=== PATIENT | female | born 1960 | race Caucasian/White ===

== ENCOUNTER → 2018-03-25 | Day surgery (SDC) | payer OTHER ==
[2018-03-02 16:01] VITALS: BMI 71.0
[2018-03-11 14:02] VITALS: BMI 72.0
--- NOTE | 2018-03-11 14:33 | PAT Medication Instructions ---
Service Date Mar 11, 2018. Current Home Medication List Albuterol (Ventolin), 2 PUFFS INH Q4H PRN for Wheezing Albuterol Sulf (Proventil 0.083% 2.5MG/3ML), 1 VIAL NEB Q4H PRN for SOB/Wheezing Aspirin (Aspirin Ec), 81 MG PO QAM Carvedilol (Coreg), 12.5 MG PO BID Citalopram (Citalopram Hydrobromide), 20 MG PO QAM Ergocalciferol (Vitamin D 01781 Unit), 50,000 UNIT PO WK Ferrous Sulfate (Iron), 1 TAB PO DAILY Fluticasone Propionate (Flovent Hfa), 2 PUFFS INH BID Furosemide (Furosemide), 40 MG PO QAM Levothyroxine Sodium (Synthroid), 250 MCG PO QAM Loratadine (Claritin), 10 MG PO QAM Losartan Potassium (Cozaar), 25 MG PO QAM Miconazole Nitrate (Desenex Shake Powder), 1 APPLN EXT UD PRN for Affected Skin Folds Montelukast Sod (Montelukast Sodium), 10 MG PO QPM Medication Instructions For Your Scheduled Surgery - Continue as directed: Ergocalciferol (Vitamin D 90894 Unit), 50,000 UNIT PO WK - Check with surgeon and firestop/containment worker for instructions: Aspirin (Aspirin Ec), 81 MG PO QAM - Hold the following medications 24 hours prior to surgery: Miconazole Nitrate (Desenex Shake Powder), 1 APPLN EXT UD PRN for Affected Skin Folds - Hold the following medications the morning of surgery: Loratadine (Claritin), 10 MG PO QAM Losartan Potassium (Cozaar), 25 MG PO QAM Furosemide (Furosemide), 40 MG PO QAM Ferrous Sulfate (Iron), 1 TAB PO DAILY - Take the following medications the morning of surgery with a sip of water: Albuterol (Ventolin), 2 PUFFS INH Q4H PRN for Wheezing (if needed) Albuterol Sulf (Proventil 0.083% 2.5MG/3ML), 1 VIAL NEB Q4H PRN for SOB/ Wheezing (if needed) Carvedilol (Coreg), 12.5 MG PO BID Citalopram (Citalopram Hydrobromide), 20 MG PO QAM Fluticasone Propionate (Flovent Hfa), 2 PUFFS INH BID Levothyroxine Sodium (Synthroid), 250 MCG PO QAM - Take the following medications as scheduled the night before surgery: Montelukast Sod (Montelukast Sodium), 10 MG PO QPM Fluticasone Propionate (Flovent Hfa), 2 PUFFS INH BID Carvedilol (Coreg), 12.5 MG PO BID Albuterol (Ventolin), 2 PUFFS INH Q4H PRN for Wheezing (if needed) Albuterol Sulf (Proventil 0.083% 2.5MG/3ML), 1 VIAL NEB Q4H PRN for SOB/ Wheezing (if needed) If you have any questions please call us at [phone] or [phone] or [phone]
[2018-03-11 15:43] LABS: BASO % 0.3 %; BASO ABS # 0.03 K/uL (0-0.2); EOS % 2.4 %; EOS ABS # 0.28 K/uL (0-0.5); HEMOGLOBIN 11.2 g/dL (12.0-16.0); IG# 0.03 K/uL (0.00-0.02); LYMPH % 20.7 %; LYMPH ABS # 2.37 K/uL (1.2-3.4); MEAN CELL VOLUME 79.1 fL (80-100); MEAN CORPUSCULAR HEMOGLOBIN 24.6 pg (25-34); MEAN CORPUSCULAR HGB CONC 31.1 g/dl (32-36); MEAN PLATELET VOLUME 9.2 fL (7.4-10.4); MONO % 6.6 %; MONO ABS # 0.75 K/uL (0.11-0.59); NEUT % 69.7 %; NEUT ABS # 7.98 K/uL (1.4-6.5); PLATELET COUNT 380 K/uL (130-400); RED CELL DISTRIBUTION WIDTH CV 18.1 % (11.5-14.5); RED CELL DISTRIBUTION WIDTH SD 51.6 fL (36.4-46.3); WHITE BLOOD COUNT 11.44 K/uL (4.8-10.8)
[~2018-03-25] VITALS: Ht 152.4 cm; Wt 166.7 kg
[~2018-03-25] MED LIST: ALBINS/ NEB; ALBUAER2 INH; ASPI81TA28 PO; ATROPINE SULFATE 0.1 MG/ML 5ML SYR IV PRN; CARV12.52 PO; CLR10 PO; CLX/20 PO; DEXAMETHASONE SOD INJ 4 MG/ML VIAL ONE; ERGO500037 PO; EpHEDrine SULFATE INJ 50 MG/ML AMP IV PRN; FENTANYL CITRATE INJ 50 MCG/1 ML 2 ML VIAL IV PRN; FENTANYL CITRATE INJ 50 MCG/1 ML 2 ML VIAL ONE; FERR1TAB23 PO; FLUMAZENIL 0.1 MG/1 ML 10 ML VIAL IV PRN; FLVHFA110 INH; IBUPROFEN 600 MG TAB PO PRN; KETOROLAC TROMETHAMINE 30 MG/ML VIAL IV. PRN; KETOROLAC TROMETHAMINE 30 MG/ML VIAL ONE; LABETALOL HCL IV 5 MG/ML 20ML IV PRN; LACTATED RINGER'S 1000ML 1,000 ML IV SCH; LEVO125T72 PO; LIDOCAINE HCL 2% 2 ML VIAL (20MG/ML) ONE; LOSA1TAB PO; LSX40 PO; MCTP EXT; MIDAZOLAM HCL 1 MG/ML 2ML VIAL ONE; MTR600X PO; NALOXONE HCL 0.4 MG/1 ML VIAL/CARP IV PRN; ONDANSETRON INJ 2 MG/ML 2 ML VIAL IV PRN; ONDANSETRON INJ 2 MG/ML 2 ML VIAL ONE; OXYCODONE/ACETAMINOPHEN 5-325 TAB PO PRN; PROMETHAZINE HCL INJ 12.5 MG in SODIUM CHLORIDE 0.9% 50ML 50 ML IV PRN; PROMETHAZINE HCL INJ 25 MG in SODIUM CHLORIDE 0.9% 50ML 50 ML IV PRN; PROPOFOL IV EMULSION 10 MG/ML 20 ML VIAL ONE; SNG10 PO; SODIUM CHLORIDE 0.9% 1000ML 1,000 ML IV SCH; SUCCINYLCHOLINE CHLORIDE 20 MG/ML 10 ML VIAL IV ONE
[2018-03-25 10:58] VITALS: BP 136/86; PULSE 80; TEMP 37; O2SAT 94; Ht 152.4 cm; Wt 166.7 kg
--- NOTE | 2018-03-25 12:38 | History & Physical Bridge Note ---
H&P Re-Evaluation Bridge Note: I have examined the patient, reviewed the History & Physical and in the interval since the performance of the History & Physical I have noted the following changes of clinical significance: No changes noted
--- NOTE | 2018-03-25 14:00 | [facility] Post Operative Brief Note ---
Immediate Operative Summary Operative Date Mar 25, 2018. Pre-Operative Diagnosis Post Menopausal Bleeding and Thickened Endometrial Lining Post-Operative Diagnosis Post Menopausal Bleeding and Thickened Endometrial Lining Procedure(s) Performed Hysteroscopy, Dilation Curettage, Polypectomy with Myosure Surgeon Dr Rosas [employer] Supervisor Surgeon(s) Dr Cunningham Estimated Blood Loss 5cc Findings Consistent with Post-Op Diagnosis Fluids (cc crystalloids) 300 Specimens A: Endometrial Tissue B: Endomentrial Currettings Drains None Anesthesia Type General Complication(s) none Disposition Disposition: Recovery Room / PACU
--- NOTE | 2018-03-25 14:09 | [facility] Operative Report ---
Operative Report Operative Date Mar 25, 2018. Pre-Operative Diagnosis Post Menopausal Bleeding and Thickened Endometrial Lining Post-Operative Diagnosis Post Menopausal Bleeding and Thickened Endometrial Lining Procedure(s) Performed Hysteroscopy, Dilation Curettage, Polypectomy with Myosure Surgeon Dr Rosas Leather Shaver Surgeon(s) Dr Cunningham Estimated Blood Loss 5cc Findings 1. 10 cm anteverted uterus 2. Moderate amount of polypoid endometrial tissue 3. Bilateral tubal ostia visualized. Fluids 300 Specimens A: Endometrial Tissue B: Endomentrial Currettings Drains None Anesthesia Type General Complication(s) none Disposition Recovery Room / PACU Indications 57 yo post-menopausal patient with persistent post-menopausal bleeding. Office endometrial biopsy unsuccessful secondary to inability to reach Patient's cervix due to body habitus. Patient presents for D&C hysteroscopy and possible polypectomy with Myosure. Description of Procedure The patient was taken to the operating room where she was properly prepped, draped, and catheterized in sterile manner under general anesthesia. The cervix was exposed with a weighted vaginal speculum and the anterior lip of the cervix grasped with a single tooth tenaculum. The uterus was sounded to a depth of 10 cm. The endocervical canal was then progressively dilated with Hegar dilators. The operative hysteroscope was then introduced into the uterine cavity using sterile saline solution as a distending media and with attached video camera. The endometrial cavity was distended with fluids and the cavity visualized. Multiple irregular areas of polypoid tissue were noted throughout the cavity. The coronal areas were visualized bilaterally with corresponding tubal ostia. A moderate amount of proliferative appearing endometrium was noted. There were no direct intraluminal lesions seen. The myosure device was introduced into the endometrial cavity and the tissue was resected and sent for pathological evaluation. Several pictures were taken of the endometrial cavity and the hysteroscope and myosure device were removed from the cavity. A small sharp curet was then used to obtain a small amount of tissue, which was also sent to pathologist for analysis. The instruments were removed from the vaginal vault. The patient was sent to recovery area in satisfactory postoperative condition. I attest to the content of the Intraoperative Record and any orders documented therein. Any exceptions are noted below.
--- NOTE | 2018-03-25 14:18 | Discharge Instructions ---
Discharge Instructions Date of Service Mar 25, 2018. Admission Reason for Admission: Post Menopausal Bleeding Discharge Discharge Diagnosis / Problem: Post-op Discharge Goals Goal(s): Routine recovery after surgery Activity Recommendations Activity Limitations: as noted below ACTIVITY RECOMMENDATIONS: * Avoid tampons, douching, hot tubs, pools, and intercourse until bleeding has stopped. * May shower as usual. * No strenuous activity for 24-48 hours. After 24-48 hours, you can do anything you feel like doing (driving and sports are okay). RETURN TO SCHOOL/WORK: * You may return to school or work after 24 hours unless specified by your physician. DIET: * Resume previous diet. MEDICATIONS: Resume previous medications unless instructed otherwise by your surgeon. Ibuprofen 200mg 2-3 tablets every 4-6 hours as needed --OR-- Aleve 2 tablets every 8-12 hours as needed for post-operative discomfort Medications are over the counter. Tylenol may be used if above medications are contraindicated or not preferred. Medication should be taken with food or milk. do not take on an empty stomach. SPECIAL CARE INSTRUCTIONS: * Check temperature twice daily for one week. Report any elevation over 101 degrees. * Call office if you experience increased pelvic pain or discomfort not relieved by pain medicine, if you have foul smelling vaginal discharge, if you have bleeding that is heavier than a normal menstrual flow. If you are changing a maxi pad every 1- 2 hours, this is too heavy. vaginal spotting is normal for 1-2 weeks. FOLLOW UP VISIT: Call your doctor's office for a post-operative visit. . Current Hospital Diet Patient's current hospital diet: Discharge Diet Recommended Diet: Regular Diet Procedures Procedures Performed: Hysteroscopy, Dilation Curettage, Polypectomy with Myosure Pending Studies Studies pending at discharge: no Medical Emergencies . Who to Call and When: Medical Emergencies: If at any time you feel your situation is an emergency, please call 911 immediately. . Non-Emergent Contact Non-Emergency issues call your: Benefits Advisor Contact Number: [phone] . . "Provider Documentation" section prepared by Taylor Haskins. .
--- NOTE | 2018-03-25 14:44 | Anesthesiology Progress Note ---
Anesthesia Post Op Note Date & Time Mar 25, 2018 at 14:44 Vital Signs Pain Intensity: 0 Vital Signs Past 12 Hours Date Time Temp Pulse Resp B/P (MAP) Pulse Ox O2 Delivery O2 Flow Rate FiO2 03/25/18 14:40 90 12 124/63 96 Room Air 03/25/18 14:30 90 24 133/69 94 Oxymask 10 03/25/18 14:20 89 25 131/64 93 Oxymask 10 03/25/18 14:12 36.2 90 16 138/69 96 Oxymask 10 03/25/18 10:58 37 80 20 136/86 (103) 94 Room Air Notes Mental Status: alert / awake / arousable, participated in evaluation Pt Amnestic to Procedure: Yes Nausea / Vomiting: adequately controlled Pain: adequately controlled Airway Patency, RR, SpO2: stable & adequate BP & HR: stable & adequate Hydration State: stable & adequate Anesthetic Complications: no major complications apparent
[2018-03-25 15:00] VITALS: BP 126/60; PULSE 90; TEMP 36.8; O2SAT 95
[2018-03-25 15:30] VITALS: BP 129/64; PULSE 91; O2SAT 94
[2018-03-25 16:00] VITALS: BP 159/73; PULSE 99; TEMP 36.8; O2SAT 96
== END | disposition home or self-care (01) ==
LOC: C.ACU 10:24
PROVIDERS: ATTEND Obstetrics & Gynecology Obstetrics
DX: N95.0 Postmenopausal bleeding (principal); G47.33 Obstructive sleep apnea (adult) (pediatric); I10 Essential (primary) hypertension; J45.909 Unspecified asthma, uncomplicated; E03.9 Hypothyroidism, unspecified; F32.9 Major depressive disorder, single episode, unspecified; E66.01 Morbid (severe) obesity due to excess calories; Z68.45 Body mass index [BMI] 70 or greater, adult; Z88.5 Allergy status to narcotic agent; Z99.89 Dependence on other enabling machines and devices; Z96.653 Presence of artificial knee joint, bilateral; Z90.49 Acquired absence of other specified parts of digestive tract

== ENCOUNTER 2020-02-14 00:47 | Observation (INO) ==
[2020-02-14] MEDS ORDERED: NITROGLYCERIN SL 0.4 MG/TAB TAB SL STA (01:06)
[2020-02-14 01:22] LABS: Albumin Level 3.1 gm/dl (3.4-5.0); BUN Creatinine Ratio 15.3 (10-20); Calcium 8.8 mg/dl (8.5-10.1); Creatinine Clr Calc Pharmacy 89.9 ml/min; Est GFR (African American) 70.1; Est GFR (Non-African American) 60.5; Potassium 3.8 mmol/L (3.5-5.1)
[2020-02-14 01:29] LABS: Albumin Globulin Ratio 0.6 (0.9-2); Bilirubin,Total 0.3 mg/dl (0.2-1); Globulin 5.4 gm/dl (2.5-4.0); Total Protein 8.5 gm/dl (6.4-8.2)
[2020-02-14 01:42] LABS: Basophils # (auto) 0.05 K/uL (0-0.2); Basophils % (auto) 0.4 %; Eosinophils # (auto) 0.33 K/uL (0-0.5); Eosinophils % (auto) 2.8 %; Hematocrit (blood only) 37.6 % (37-47); Immature Granulocytes # (auto) 0.04 K/uL (0.00-0.02); Immature Granulocytes % (auto) 0.3 %; Lymphocytes # (auto) 2.22 K/uL (1.2-3.4); Lymphocytes % (auto) 18.6 %; Mean Corpuscular Hemoglobin 25.7 pg (25-34); Mean Corpuscular Hgb Conc 31.9 g/dL (32-36); Mean Corpuscular Volume 80.5 fL (80-100); Mean Platelet Volume 9.1 fL (7.4-10.4); Monocytes % (auto) 6.7 %; Neutrophils # (auto) 8.47 K/uL (1.4-6.5); Neutrophils % (auto) 71.2 %; Platelet Count 349 K/uL (130-400); RDW Standard Deviation 49.7 fL (36.4-46.3); Red Blood Count 4.67 M/uL (4.2-5.4); White Blood Count 11.91 K/uL (4.8-10.8)
[2020-02-14 02:14] LABS: INR 1.1 (0.9-1.1); Partial Thromboplastin Ratio 1.1; Partial Thromboplastin Time 30.8 Seconds (21.0-31.0); Prothrombin Time 11.3 Seconds (9.0-12.0)
--- NOTE | 2020-02-14 02:59 | Emergency Department Note ---
History of Present Illness General Chief complaint: Chest Pain Stated complaint: CHEST PAIN Source: patient and family Mode of arrival: EMS Limitations: no limitations History of Present Illness Provider complaint: Chest pain Maximum Pain Intensity: 3 This patient is a 59-year-old female who presents to the emergency department with complaints of substernal chest pressure and some shortness of breath. She states she had some discomfort last evening and again during the day today. Finally upon going to bed she noticed the pain up into the right shoulder and felt that it was time to be evaluated. Patient did call the ambulance. Patient states she has "some history of blockages" but no history of heart attack or stent placement. She denies a diagnosis of diabetes. Patient states she did not do much today except "fix supper." She denies any recent fevers, cough, vomiting or diarrhea. Home Medications Home Medications Medication Instructions Recorded Confirmed Type citalopram 20 mg PO QAM 05/02/18 02/14/20 History ergocalciferol (vitamin D2) 50,000 unit PO UD 05/02/18 02/14/20 History [Vitamin D2] ferrous sulfate [iron] 325 mg PO QAM 05/02/18 02/14/20 History furosemide 40 mg PO QAM 05/02/18 02/14/20 History levothyroxine [Synthroid] 250 mcg PO QAM 05/02/18 02/14/20 History losartan 25 mg PO QAM 05/02/18 02/14/20 History montelukast [Singulair] 10 mg PO HS 05/02/18 02/14/20 History Flovent HFA 2 puff INHALATION BID 05/06/18 02/14/20 History albuterol sulfate 2 puff INHALATION Q4 PRN 05/06/18 02/14/20 History aspirin [Adult Low Dose Aspirin] 81 mg PO QAM 05/06/18 02/14/20 History multivitamin 1 tab PO QAM 08/10/18 02/14/20 History albuterol sulfate 2.5 mg INHALATION Q4 PRN 02/14/20 02/14/20 History ascorbic acid (vitamin C) [Vitamin 250 mg PO DAILY 02/14/20 02/14/20 History C] carvedilol 12.5 mg PO BID 02/14/20 02/14/20 History clotrimazole-betamethasone 1 applic TOPICAL BID 02/14/20 02/14/20 History loratadine 10 mg PO DAILY 02/14/20 02/14/20 History Allergies Allergy/AdvReac Type Severity Reaction Status Date / Time morphine AdvReac Intermediate ABD PAIN, Verified 02/14/20 01:54 NAUSEA AND VOMITING Past Med/Surg History Medical History Anemia Asthma USED RESCUE INHALER LAST A COUPLE MONTHS AGO Cardiac murmur Depression Hypertension Hypertrophic cardiomyopathy 'most likely on the basis of hypertensive heart disease' per cardio 07/2018 Hypothyroidism Obesity Osteoarthritis Rheumatoid arthritis Sleep apnea uses cpap - with oxygen 2L Surgical History Difficult airway for intubation NO PROBLEMS RECENTLY (LAST SURGERY/NO PROBLEMS) History of cholecystectomy History of colonoscopy History of dilatation and curettage History of eye surgery STABISMUS REPAIRED LEFT EYE History of repair of rotator cuff left History of tooth extraction all teeth pulled History of total abdominal hysterectomy and bilateral salpingo-oophorectomy NON HEALING INCISION (GETTING PACKED EVERY OTHER DAY AT WOUND CLINIC CURRENTLY) History of total knee replacement bilateral Family History Brother Family history of diabetes mellitus Sister Family history of diabetes mellitus Grandfather Family history of diabetes mellitus Grandmother Family history of diabetes mellitus Social History Preferred Language: Ukrainian Communication Ability: Effective Resource Development Director Required: No Beliefs That Will Affect Care: None Current Living Situation: Spouse and Family Current Living Situation Comment: son too Feels Safe at Home: Yes Smoking Status: Never smoker Second Hand Exposure: Yes ; Hx Alcohol Use: No Hx Substance Use: No Review of Systems See HPI for pertinent positives & negatives. and A total of 10 systems reviewed and were otherwise negative Physical Exam Vital Signs Vital Signs - 24 hr 02/14/20 00:54 02/14/20 00:56 02/14/20 00:58 Temperature 36.8 C Temperature Source Oral Pulse Rate 89 89 Pulse Rate from SpO2 Sensor 90 Respiratory Rate 17 18 Blood Pressure 163/111 H 163/111 H Blood Pressure Mean 122 128 Pulse Oximetry 93 92 Oxygen Delivery Method Room Air Room Air Sepsis Recent Fever Within 48 Hours No Sepsis New/Unexplained Change in Mental Status No Sepsis Action Taken by Nursing No Action Required 02/14/20 00:59 02/14/20 01:00 02/14/20 01:05 Temperature Temperature Source Pulse Rate 88 89 89 Pulse Rate from SpO2 Sensor 89 88 89 Respiratory Rate 18 16 20 Blood Pressure 171/106 H 147/67 H Blood Pressure Mean 122 89 Pulse Oximetry 93 93 93 Oxygen Delivery Method Sepsis Recent Fever Within 48 Hours Sepsis New/Unexplained Change in Mental Status Sepsis Action Taken by Nursing 02/14/20 01:30 02/14/20 02:37 02/14/20 02:44 Temperature Temperature Source Pulse Rate 90 86 87 Pulse Rate from SpO2 Sensor 91 H 87 87 Respiratory Rate 21 20 16 Blood Pressure 112/57 L 112/57 L Blood Pressure Mean 75 70 Pulse Oximetry 90 90 91 Oxygen Delivery Method Sepsis Recent Fever Within 48 Hours Sepsis New/Unexplained Change in Mental Status Sepsis Action Taken by Nursing 02/14/20 03:00 02/14/20 03:37 02/14/20 03:38 Temperature Temperature Source Pulse Rate 87 91 H 89 Pulse Rate from SpO2 Sensor 88 88 Respiratory Rate 16 16 12 Blood Pressure 128/58 L 145/68 H Blood Pressure Mean 74 76 Pulse Oximetry 92 92 Oxygen Delivery Method Sepsis Recent Fever Within 48 Hours Sepsis New/Unexplained Change in Mental Status Sepsis Action Taken by Nursing 02/14/20 04:00 Temperature Temperature Source Pulse Rate 87 Pulse Rate from SpO2 Sensor 87 Respiratory Rate 21 Blood Pressure 145/61 H Blood Pressure Mean 94 Pulse Oximetry 90 Oxygen Delivery Method Sepsis Recent Fever Within 48 Hours Sepsis New/Unexplained Change in Mental Status Sepsis Action Taken by Nursing Vital signs reviewed. General: Super obese 59-year-old female, in no significant distress, on room air. HEENT: No scleral icterus, PERRLA, neck supple. Atraumatic. Cardiovascular: Regular rate and rhythm, no extra sounds. Pulmonary: Clear to auscultation bilaterally, normal work of breathing. Abdomen: Soft, morbidly obese, nontender, nondistended, positive bowel sounds. Musculoskeletal: Atraumatic, chronic lymphedema to the bilateral lower extremities. Neurologic: Patient awake alert and oriented x 3 Skin: Warm, dry, no rash Course Administered Medications Levothyroxine Sodium (Synthroid) 250 mcg PO DAILYBB [facility] Stop: 03/15/20 06:29 Last Admin: 02/14/20 06:39 Dose: 250 mcg Documented by: [id number] Discontinued Medications Nitroglycerin (Nitrostat) 0.4 mg SL NOW STA Stop: 02/14/20 01:07 Last Admin: 02/14/20 01:20 Dose: 0.4 mg Documented by: [id number] Medical Decision Making Differential Diagnosis Differential diagnosis: Acute coronary syndrome, pulmonary embolus, aortic dissection, musculoskeletal pain, pneumonia, pleural effusion, pneumothorax Home Medications Current Medication List: was personally reviewed by me Laboratory Data Attestation: I reviewed the patient's lab results. Result diagrams: 02/14/20 01:35 02/14/20 00:30 Lab Results 02/14/20 02/14/20 02/14/20 Range/Units 00:30 00:30 00:30 WBC Cancelled RBC Cancelled Hgb Cancelled Hct Cancelled MCV Cancelled MCH Cancelled MCHC Cancelled RDW Std Deviation Cancelled RDW Coeff of Della Cancelled Plt Count Cancelled MPV Cancelled Immature Gran % (Auto) Cancelled Neut % (Auto) Cancelled Lymph % (Auto) Cancelled [place] % (Auto) Cancelled Eos % (Auto) Cancelled Baso % (Auto) Cancelled Neut # (Auto) Cancelled Lymph # (Auto) Cancelled [place] # (Auto) Cancelled Eos # (Auto) Cancelled Baso # (Auto) Cancelled Immature Gran # (Auto) Cancelled Absolute Nucleated RBC Cancelled Nucleated RBC % (auto) Cancelled Neutrophils % (Manual) Cancelled Band Neutrophils % Cancelled Lymphocytes % (Manual) Cancelled Prolymphocyte % Cancelled Reactive Lymphs % (Man) Cancelled Monocytes % (Manual) Cancelled Eosinophils % (Manual) Cancelled Basophils % (Manual) Cancelled Metamyelocytes % (Man) Cancelled Myelocytes % (Man) Cancelled Promyelocytes % (Man) Cancelled Blast Cells % (Manual) Cancelled Plasma Cell % (Manual) Cancelled Other Cells % Cancelled Nucleated RBC % Cancelled Neutrophils # (Manual) Cancelled Band Neutrophils # Cancelled Total Absolute Neuts Cancelled Lymphocytes # (Manual) Cancelled Prolymphocyte # Cancelled Reactive Lymphs # Cancelled Total Abs Lymphocytes Cancelled Monocytes # (Manual) Cancelled Eosinophils # (Manual) Cancelled Basophils # (Manual) Cancelled Metamyelocytes # (Man) Cancelled Myelocytes # (Manual) Cancelled Promyelocytes # (Man) Cancelled Blast Cells # (Man) Cancelled Plasma Cell # (Manual) Cancelled Other Cells # Cancelled Nucleated RBCs # (Man) Cancelled Hypersegmented Neuts Cancelled Hyposegmented Neuts Cancelled Hypogranular Neuts Cancelled Large Granular Lymphs Cancelled # Lrg Granular Lymphs Cancelled Hairy Cells Cancelled Smudge Cells Cancelled Toxic Granulation Cancelled Toxic Vacuolation Cancelled Dohle Bodies Cancelled Landon Rods Cancelled Platelet Estimate Cancelled Hypogranular Platelets Cancelled Clumped Platelets Cancelled Giant Platelets Cancelled Platelet Satelliting Cancelled RBC Morphology Cancelled Polychromasia Cancelled Hypochromasia Cancelled Poikilocytosis Cancelled Basophilic Stippling Cancelled Anisocytosis Cancelled Microcytosis Cancelled Macrocytosis Cancelled Spherocytes Cancelled Pappenheimer Bodies Cancelled Sickle Cells Cancelled Target Cells Cancelled Tear Drop Cells Cancelled Ovalocytes Cancelled Stomatocytes Cancelled Patrick-Dolores Bodies Cancelled Echinocytes Cancelled Acanthocytes (Spur) Cancelled Rouleaux Cancelled RBC Agglutinates Cancelled Schistocytes Cancelled RBC Morph Comment Cancelled Sezary Cell Cancelled PT Cancelled INR Cancelled APTT Cancelled PTT Ratio Cancelled Sodium 138 (136-145) mmol/L Potassium 3.8 (3.5-5.1) mmol/L Chloride 103 (98-107) mmol/L Carbon Dioxide 28 (21-32) mmol/L Anion Gap 7.0 (3-11) BUN 15 (7-18) mg/dl Creatinine 1.01 (0.6-1.2) mg/dl Est Cr Clr Drug Dosing 89.9 ml/min Est GFR ( Amer) 70.1 Est GFR (Non-Af Amer) 60.5 BUN/Creatinine Ratio 15.3 (10-20) Glucose 93 (70-99) mg/dl Calcium 8.8 (8.5-10.1) mg/dl Total Bilirubin 0.3 (0.2-1) mg/dl AST 13 L (15-37) U/L ALT 23 (12-78) U/L Alkaline Phosphatase 75 (45-117) U/L Troponin I (0-0.045) ng/ml Total Protein 8.5 H (6.4-8.2) gm/dl Albumin 3.1 L (3.4-5.0) gm/dl Globulin 5.4 H (2.5-4.0) gm/dl Albumin/Globulin Ratio 0.6 L (0.9-2) Lipase 225 (73-393) U/L 02/14/20 02/14/20 02/14/20 Range/Units 01:35 01:35 01:41 WBC 11.91 H RBC 4.67 Hgb 12.0 Hct 37.6 MCV 80.5 MCH 25.7 MCHC 31.9 L RDW Std Deviation 49.7 H RDW Coeff of Della 17.0 H Plt Count 349 MPV 9.1 Immature Gran % (Auto) 0.3 Neut % (Auto) 71.2 Lymph % (Auto) 18.6 [place] % (Auto) 6.7 Eos % (Auto) 2.8 Baso % (Auto) 0.4 Neut # (Auto) 8.47 H Lymph # (Auto) 2.22 [place] # (Auto) 0.80 H Eos # (Auto) 0.33 Baso # (Auto) 0.05 Immature Gran # (Auto) 0.04 H Absolute Nucleated RBC Nucleated RBC % (auto) Neutrophils % (Manual) Band Neutrophils % Lymphocytes % (Manual) Prolymphocyte % Reactive Lymphs % (Man) Monocytes % (Manual) Eosinophils % (Manual) Basophils % (Manual) Metamyelocytes % (Man) Myelocytes % (Man) Promyelocytes % (Man) Blast Cells % (Manual) Plasma Cell % (Manual) Other Cells % Nucleated RBC % Neutrophils # (Manual) Band Neutrophils # Total Absolute Neuts Lymphocytes # (Manual) Prolymphocyte # Reactive Lymphs # Total Abs Lymphocytes Monocytes # (Manual) Eosinophils # (Manual) Basophils # (Manual) Metamyelocytes # (Man) Myelocytes # (Manual) Promyelocytes # (Man) Blast Cells # (Man) Plasma Cell # (Manual) Other Cells # Nucleated RBCs # (Man) Hypersegmented Neuts Hyposegmented Neuts Hypogranular Neuts Large Granular Lymphs # Lrg Granular Lymphs Hairy Cells Smudge Cells Toxic Granulation Toxic Vacuolation Dohle Bodies Landon Rods Platelet Estimate Hypogranular Platelets Clumped Platelets Giant Platelets Platelet Satelliting RBC Morphology Polychromasia Hypochromasia Poikilocytosis Basophilic Stippling Anisocytosis Microcytosis Macrocytosis Spherocytes Pappenheimer Bodies Sickle Cells Target Cells Tear Drop Cells Ovalocytes Stomatocytes Patrick-Dolores Bodies Echinocytes Acanthocytes (Spur) Rouleaux RBC Agglutinates Schistocytes RBC Morph Comment Sezary Cell PT 11.3 INR 1.1 APTT 30.8 PTT Ratio 1.1 Sodium (136-145) mmol/L Potassium (3.5-5.1) mmol/L Chloride (98-107) mmol/L Carbon Dioxide (21-32) mmol/L Anion Gap (3-11) BUN (7-18) mg/dl Creatinine (0.6-1.2) mg/dl Est Cr Clr Drug Dosing ml/min Est GFR ( Amer) Est GFR (Non-Af Amer) BUN/Creatinine Ratio (10-20) Glucose (70-99) mg/dl Calcium (8.5-10.1) mg/dl Total Bilirubin (0.2-1) mg/dl AST (15-37) U/L ALT (12-78) U/L Alkaline Phosphatase (45-117) U/L Troponin I < 0.015 (0-0.045) ng/ml Total Protein (6.4-8.2) gm/dl Albumin (3.4-5.0) gm/dl Globulin (2.5-4.0) gm/dl Albumin/Globulin Ratio (0.9-2) Lipase (73-393) U/L ECG Data Attestation: I personally reviewed and interpreted this ECG as follows: Indication: + chest pain Rate (beats per minute): 91 Rhythm: + normal sinus ECG Intervals/blocks: + Normal QT-c ECG Spurgeon: + Normal ECG ST segments: + Normal ST segments ECG Findings: no PACs and no PVCs Blood Pressure Blood Pressure Findings: Normal blood pressure Blood Pressure Disposition: further management by hospitalist YARELY Narrative This patient was evaluated and appeared to be in no significant distress. IV access was obtained and laboratory work was drawn. Patient complained of a 3 out of 10 pain on my exam. Initially blood pressure was noted to be very high however the cuff was repositioned and blood pressure was in fact fairly normal. Patient did receive aspirin in route. She did not have nitroglycerin. She was ordered sublingual nitro. Laboratory work reveals a normal troponin. EKG reveals no evidence of acute ischemia. However, given the patient's superobesity, history of hypertrophic cardiomyopathy, the patient will be evaluated by the hospitalist service for further management. She and her hu tere are aware of the plan and agree. Impression & Plan Chest pain radiating to arm Discharge Plan Visit Data *Final* Discharge Date/Time: 02/14/20 05:08 Chief Complaint: Chest Pain Stated Complaint: CHEST PAIN ED Provider: Jacey Magallanes Discharge Problem: Chest pain radiating to arm Patient Disposition: Admitted As Inpatient Discharge Instructions Interventions: ED Discharge Assessment Last Done: 02/14/20 05:08
[2020-02-14] MEDS ORDERED: NITROGLYCERIN SL 0.4 MG/TAB TAB SL PRN (05:24)
[2020-02-14] MEDS ORDERED: ALBUTEROL HFA 8 GM INHALER INH PRN (05:24)
[2020-02-14] MEDS ORDERED: ONDANSETRON INJ 2 MG/ML 2 ML VIAL IV PRN (05:24)
[2020-02-14] MEDS ORDERED: POLYETHYLENE (MIRALAX) 17 GM PACK PO PRN (05:24)
[2020-02-14] MEDS ORDERED: ALBUTEROL 0.083% NEBU SOLN 3 ML VIAL INH PRN (05:24)
[2020-02-14] MEDS ORDERED: ACETAMINOPHEN 325 MG TAB PO PRN (05:24)
--- NOTE | 2020-02-14 06:15 | History and Physical Report ---
DATE OF ADMISSION: 02/14/2020 CHIEF COMPLAINT: Chest pain. HISTORY OF PRESENT ILLNESS: This is 59-year-old female with past medical history significant for allergic asthma, obstructive sleep apnea, on CPAP at bedtime, hypertrophic cardiomyopathy, history of paroxysmal SVT, hypertension, diastolic dysfunction, morbid obesity, vitamin D deficiency, generalized osteoarthritis, anemia, chronic lymphedema, depression. The patient lives with her and son, ambulates with help of cane, comes because of chest pain. The patient states in the evening around 7:00 p.m., she noticed like toothache kind of pain in the left side of chest. Then around 11:00 p.m., the pain was radiating to the left shoulder when they decided to come to the ER. She says the pain was 10/10 at that time. Right now the pain is almost resolved. She received nitroglycerin in the ER. Currently, resting comfortably and hemodynamically stable. The patient says she had some issues with shortness of breath in first week of December that got resolved, but since last few days again, she gets short of breath mostly with exertion. Denies any dizziness, no nausea. No blurred vision. No headache, no earache, no runny nose, no sore throat, no cough, no difficulty swallowing. No loss of sense of smell or taste. No exposure to COVID patients. No nausea, no abdominal pain. Normal bowel and bladder movements. No blood in the stools or black stools. No rash. ALLERGIES: MORPHINE. PAST MEDICAL HISTORY: As mentioned above. PAST SURGICAL HISTORY: Bilateral knee arthroplasty, cholecystectomy, colonoscopy, dilatation and curettage, laparoscopic cholecystectomy, ligation of the oviducts, eye surgery, removal of the cervix cone, shoulder arthroscopy, total hysterectomy. MEDICATIONS: The patient is on citalopram 20 mg p.o. daily, Lasix 40 mg p.o. daily, Singulair 10 mg p.o. daily, Synthroid 250 mcg p.o. daily, vitamin D 50,000 units take one capsule weekly, vitamin C 250 mg p.o. daily, Lotrisone cream as needed, Coreg 12.5 mg p.o. b.i.d., Flovent 2 puffs b.i.d., losartan 25 mg p.o. daily, multivitamins 1 tablet daily, oxygen 1 liter at bedtime through CPAP, ferrous sulfate 325 mg p.o. daily, aspirin 81 mg p.o. daily, loratadine 10 mg p.o. daily. FAMILY HISTORY: Significant for mother had cancer. Father had stroke, heart disorder, arthritis. Son has allergies, asthma. Sister has diabetes. Brother has diabetes. Brother has CAD. SOCIAL HISTORY: Lives with her and son. No smoking, no alcohol, no drug use. REVIEW OF SYMPTOMS: As per HPI. Rest of review of symptoms are negative. PHYSICAL EXAMINATION: GENERAL: The patient is morbidly obese, not in acute distress. VITAL SIGNS: Temperature 36.8, pulse 86, respiratory rate 20, blood pressure 112/57, oxygen 98% on room air. HEENT: No pallor, no icterus. NECK: No JVD, no neck masses, no carotid bruits. CARDIOVASCULAR: S1, S2 heard, regular rate and rhythm, no murmur, no gallop. RESPIRATORY SYSTEM: Normal AP diameter. No accessory muscle use. No wheezing, no crackles. ABDOMEN: Soft, bowel sounds present, nontender. No distention. CENTRAL NERVOUS SYSTEM: Cranial nerves II-XII grossly intact, nonfocal. EXTREMITIES: Mild chronic pedal edema present, no erythema seen. LABORATORY DATA: WBC 11.9, hemoglobin 12, hematocrit 37.6, platelets 349. PT 11.3, INR 1.1, APTT 30.8. Sodium 138, potassium 3.8, chloride 103, bicarbonate 28, BUN 15, creatinine 1.01. Serum glucose 293, calcium 8.8, total bilirubin 0.3, AST 13, ALT 23, alkaline phosphatase 75. Troponin I less than 0.015. Lipase 225. IMAGING: Chest x-ray, poor inspiratory effort. No acute findings seen. EKG: Normal sinus rhythm, rate of 91. No acute ST changes seen. ASSESSMENT AND PLAN: 1. This 59-year-old female who presents with chest pain, rule out acute coronary syndrome. Initial workup is negative.Has risk factors of age, sleep apnea, hypertension and obesity. We will observe in med/tele, serial enzymes, echocardiogram. Keep n.p.o. Consult cardiology for further recommendation. Currently stable. 2. History of hypothyroidism: Continue home Synthroid. 3. History of allergic asthma: Currently stable on Singulair and loratadine. 4. Obstructive sleep apnea: On CPAP at bedtime. 5. History of hypertrophic cardiomyopathy, history of supraventricular tachycardia: On Coreg. We will follow the echocardiogram. 6. History of hypertension: On losartan and Coreg. We will monitor the blood pressure. 7. History of chronic diastolic congestive heart failure, has lower extremity edema: On Lasix, which we will continue, on losartan. 8. Morbid obesity: Need counseling. 9. Depression: On Celexa. 10. Deep venous thrombosis prophylaxis: Sequential compression devices for now. DISPOSITION: Closely monitor in the med/tele. Expect to discharge home and follow with family doctor. Level 1 full code. MTDD
[2020-02-14] MEDS: LEVOTHYROXINE SODIUM 125 MCG TABLET PO SCH (06:39)
[2020-02-14] MEDS: ASCORBIC ACID 500 MG TAB PO SCH (07:49)
[2020-02-14] MEDS: CLOTRIMAZOLE/BETAMETHASONE CR 15 GM TUBE EXT SCH ×2 (07:49→21:09)
[2020-02-14] MEDS: FLUTICASONE FUROATE 200MCG 14 PUFFS/INHALER INH SCH (07:49)
[2020-02-14] MEDS: ASPIRIN 81 MG ECTAB PO SCH (07:49)
--- NOTE | 2020-02-14 07:49 | XRay Report ---
XR chest 1V portable CLINICAL HISTORY: Atypical chest pain COMPARISON STUDY: 04/09/2016 FINDINGS: The heart is borderline enlarged. There is mild elevation of interstitium, likely secondary to congestive failure. There is no lobar consolidation. There are no significant pleural effusions.[ IMPRESSION: Elevation of the interstitium, likely secondary to mild congestive failure/fluid overload . Clinical and radiographic follow-up is recommended. ACT 112: Negative or not required by law. Electronically signed by: Gurvinder You M.D. 02/14/2020 7:47 AM
[2020-02-14] MEDS: FERROUS SULFATE 325 MG TAB PO SCH (07:50)
[2020-02-14] MEDS: carvediloL 12.5 MG TAB PO SCH ×2 (07:50→21:08)
[2020-02-14] MEDS: MULTIVITAMIN TAB PO SCH (07:50)
[2020-02-14] MEDS: CITALOPRAM 20 MG TAB PO SCH (07:50)
[2020-02-14] MEDS: FUROSEMIDE 40 MG TAB PO SCH (07:50)
[2020-02-14] MEDS: LORATADINE 10 MG TAB PO SCH (07:50)
[2020-02-14 08:08] LABS: Basophils # (auto) 0.03 K/uL (0-0.2); Basophils % (auto) 0.2 %; Eosinophils # (auto) 0.22 K/uL (0-0.5); Eosinophils % (auto) 1.8 %; Hematocrit (blood only) 38.8 % (37-47); Hemoglobin 12.1 g/dL (12.0-16.0); Immature Granulocytes # (auto) 0.03 K/uL (0.00-0.02); Immature Granulocytes % (auto) 0.2 %; Lymphocytes % (auto) 19.8 %; Mean Corpuscular Hemoglobin 24.9 pg (25-34); Mean Corpuscular Hgb Conc 31.2 g/dL (32-36); Mean Platelet Volume 8.8 fL (7.4-10.4); Monocytes # (auto) 0.61 K/uL (0.11-0.59); Neutrophils # (auto) 8.83 K/uL (1.4-6.5); Platelet Count 400 K/uL (130-400); RDW Coefficient of Variation 16.9 % (11.5-14.5); RDW Standard Deviation 49.8 fL (36.4-46.3); Red Blood Count 4.85 M/uL (4.2-5.4); White Blood Count 12.12 K/uL (4.8-10.8)
[2020-02-14 08:37] LABS: BUN Creatinine Ratio 17.5 (10-20); Creatinine Clr Calc Pharmacy 116.1 ml/min; Est GFR (African American) 97.3; Est GFR (Non-African American) 83.9; Magnesium 2.3 mg/dl (1.8-2.4)
[2020-02-14 08:44] LABS: Chol HDL Ratio 2; Cholesterol 149 mg/dl (0-200); HDL Cholesterol 63 mg/dl; LDL Cholesterol Calculated 71 mg/dl; Triglycerides 74 mg/dl (0-150); Troponin I < 0.015 ng/ml (0-0.045); VLDL Cholesterol 15 mg/dl
[2020-02-14] MEDS ORDERED: LOSARTAN POTASSIUM 25 MG TAB PO SCH (09:00)
[2020-02-14] MEDS ORDERED: PERFLUTREN LIPID MICROSPHERE (DEFINITY) IV ONE (14:48)
--- NOTE | 2020-02-14 17:59 | Cardiology Consultation ---
Date of Consultation February 14, 2020 Assessment & Plan (1) Chest pain radiating to arm: Initial evaluations including EKGs and cardiac enzymes unremarkable for injury or ischemia. Total symptoms lasted more than 3 hours before resolve suggesting less likelihood of coronary artery disease. Echocardiogram no wall motion abnormality Plan schedule dobutamine stress echocardiogram in a.m. Increase antihypertensive regimen increasing losartan to 25 mg twice per day while continuing all other medications. Continue outpatient diuretic regimen though suspect will require increased dosing (2) Obstructive sleep apnea hypopnea, severe: (3) Hypertensive heart disease with chronic diastolic congestive heart failure: History of Present Illness Reason for Consultation: Chest pain Requesting Physician: Dr. Millan Attending Physician: Randy Millan MD History of Present Illness Patient is a 61-year-old female with history per review with patient and review of records which includes 1. Longstanding hypertension 2. Hypertensive heart disease with diastolic dysfunction 3. Morbid obesity 4. Severe obstructive sleep apnea Patient presents this admission noting having developed a low level tooth pain ache in her left chest which radiated initially to the shoulder then became more severe. Symptoms were waning on presentation to ER and ultimately resolved after sublingual nitroglycerin. Patient notably hypertensive both systolic and diastolic on presentation. Patient denies tachypalpitations syncope or near syncope. Has been aware of some increasing lower extremity edema and leg tenderness. No fevers chills or productive cough. No bleeding difficulties. No change in medications. Had pending appointment with cardiology for today Allergies Allergy/AdvReac Type Severity Reaction Status Date / Time morphine AdvReac Intermediate ABD PAIN, Verified 02/14/20 01:54 NAUSEA AND VOMITING Home Medications Home Medications Medication Instructions Recorded Confirmed Type citalopram 20 mg PO QAM 05/02/18 02/14/20 History ergocalciferol (vitamin D2) 50,000 unit PO UD 05/02/18 02/14/20 History [Vitamin D2] ferrous sulfate [iron] 325 mg PO QAM 05/02/18 02/14/20 History furosemide 40 mg PO QAM 05/02/18 02/14/20 History levothyroxine [Synthroid] 250 mcg PO QAM 05/02/18 02/14/20 History losartan 25 mg PO QAM 05/02/18 02/14/20 History montelukast [Singulair] 10 mg PO HS 05/02/18 02/14/20 History Flovent HFA 2 puff INHALATION BID 05/06/18 02/14/20 History albuterol sulfate 2 puff INHALATION Q4 PRN 05/06/18 02/14/20 History aspirin [Adult Low Dose Aspirin] 81 mg PO QAM 05/06/18 02/14/20 History multivitamin 1 tab PO QAM 08/10/18 02/14/20 History albuterol sulfate 2.5 mg INHALATION Q4 PRN 02/14/20 02/14/20 History ascorbic acid (vitamin C) [Vitamin 250 mg PO DAILY 02/14/20 02/14/20 History C] carvedilol 12.5 mg PO BID 02/14/20 02/14/20 History clotrimazole-betamethasone 1 applic TOPICAL BID 02/14/20 02/14/20 History loratadine 10 mg PO DAILY 02/14/20 02/14/20 History Patient History Medical History Anemia Asthma USED RESCUE INHALER LAST A COUPLE MONTHS AGO Cardiac murmur Depression Hypertension Hypertrophic cardiomyopathy 'most likely on the basis of hypertensive heart disease' per cardio 07/2018 Hypothyroidism Obesity Osteoarthritis Rheumatoid arthritis Sleep apnea uses cpap - with oxygen 2L Surgical History Difficult airway for intubation NO PROBLEMS RECENTLY (LAST SURGERY/NO PROBLEMS) History of cholecystectomy History of colonoscopy History of dilatation and curettage History of eye surgery STABISMUS REPAIRED LEFT EYE History of repair of rotator cuff left History of tooth extraction all teeth pulled History of total abdominal hysterectomy and bilateral salpingo-oophorectomy NON HEALING INCISION (GETTING PACKED EVERY OTHER DAY AT [facility] CURRENTLY) History of total knee replacement bilateral Family History Brother Family history of diabetes mellitus Sister Family history of diabetes mellitus Grandfather Family history of diabetes mellitus Grandmother Family history of diabetes mellitus Social History Preferred Language: [place] Communication Ability: Effective Hazardous Waste Technician Required: No Beliefs That Will Affect Care: None marital status: Current Living Situation: Spouse and Family Current Living Situation Comment: son too Feels Safe at Home: Yes Smoking Status: Never smoker Second Hand Exposure: Yes ; Hx Alcohol Use: No Hx Substance Use: No Results & Data ([facility]) Vital Signs (Past 12 Hours) Vital Signs Temp Pulse Pulse Resp BP Pulse Ox 02/14/20 16:05 36.4 C L 85 16 142/70 H 90 02/14/20 11:24 36.7 C 77 18 127/69 92 02/14/20 07:47 36.6 C 83 20 138/77 92 02/14/20 06:12 82 Laboratory Results Laboratory Results - last 24 hr 02/14/20 02/14/20 02/14/20 00:30 00:30 00:30 WBC Cancelled RBC Cancelled Hgb Cancelled Hct Cancelled MCV Cancelled MCH Cancelled MCHC Cancelled RDW Std Deviation Cancelled RDW Coeff of Della Cancelled Plt Count Cancelled MPV Cancelled Immature Gran % (Auto) Cancelled Neut % (Auto) Cancelled Lymph % (Auto) Cancelled Saunders % (Auto) Cancelled Eos % (Auto) Cancelled Baso % (Auto) Cancelled Neut # (Auto) Cancelled Lymph # (Auto) Cancelled Saunders # (Auto) Cancelled Eos # (Auto) Cancelled Baso # (Auto) Cancelled Immature Gran # (Auto) Cancelled Absolute Nucleated RBC Cancelled Nucleated RBC % (auto) Cancelled Neutrophils % (Manual) Cancelled Band Neutrophils % Cancelled Lymphocytes % (Manual) Cancelled Prolymphocyte % Cancelled Reactive Lymphs % (Man) Cancelled Monocytes % (Manual) Cancelled Eosinophils % (Manual) Cancelled Basophils % (Manual) Cancelled Metamyelocytes % (Man) Cancelled Myelocytes % (Man) Cancelled Promyelocytes % (Man) Cancelled Blast Cells % (Manual) Cancelled Plasma Cell % (Manual) Cancelled Other Cells % Cancelled Nucleated RBC % Cancelled Neutrophils # (Manual) Cancelled Band Neutrophils # Cancelled Total Absolute Neuts Cancelled Lymphocytes # (Manual) Cancelled Prolymphocyte # Cancelled Reactive Lymphs # Cancelled Total Abs Lymphocytes Cancelled Monocytes # (Manual) Cancelled Eosinophils # (Manual) Cancelled Basophils # (Manual) Cancelled Metamyelocytes # (Man) Cancelled Myelocytes # (Manual) Cancelled Promyelocytes # (Man) Cancelled Blast Cells # (Man) Cancelled Plasma Cell # (Manual) Cancelled Other Cells # Cancelled Nucleated RBCs # (Man) Cancelled Hypersegmented Neuts Cancelled Hyposegmented Neuts Cancelled Hypogranular Neuts Cancelled Large Granular Lymphs Cancelled # Lrg Granular Lymphs Cancelled Hairy Cells Cancelled Smudge Cells Cancelled Toxic Granulation Cancelled Toxic Vacuolation Cancelled Dohle Bodies Cancelled Landon Rods Cancelled Platelet Estimate Cancelled Hypogranular Platelets Cancelled Clumped Platelets Cancelled Giant Platelets Cancelled Platelet Satelliting Cancelled RBC Morphology Cancelled Polychromasia Cancelled Hypochromasia Cancelled Poikilocytosis Cancelled Basophilic Stippling Cancelled Anisocytosis Cancelled Microcytosis Cancelled Macrocytosis Cancelled Spherocytes Cancelled Pappenheimer Bodies Cancelled Sickle Cells Cancelled Target Cells Cancelled Tear Drop Cells Cancelled Ovalocytes Cancelled Stomatocytes Cancelled [place] Bodies Cancelled Echinocytes Cancelled Acanthocytes (Spur) Cancelled Rouleaux Cancelled RBC Agglutinates Cancelled Schistocytes Cancelled RBC Morph Comment Cancelled Sezary Cell Cancelled PT Cancelled INR Cancelled APTT Cancelled PTT Ratio Cancelled Sodium 138 Potassium 3.8 Chloride 103 Carbon Dioxide 28 Anion Gap 7.0 BUN 15 Creatinine 1.01 Est Cr Clr Drug Dosing 89.9 Est GFR ( Amer) 70.1 Est GFR (Non-Af Amer) 60.5 BUN/Creatinine Ratio 15.3 Glucose 93 Calcium 8.8 Magnesium Total Bilirubin 0.3 AST 13 L ALT 23 Alkaline Phosphatase 75 Troponin I Total Protein 8.5 H Albumin 3.1 L Globulin 5.4 H Albumin/Globulin Ratio 0.6 L Triglycerides Cholesterol LDL Cholesterol, Calc VLDL Cholesterol, Calc HDL Cholesterol Cholesterol/HDL Ratio Lipase 225 02/14/20 02/14/20 02/14/20 01:35 01:35 01:41 WBC 11.91 H RBC 4.67 Hgb 12.0 Hct 37.6 MCV 80.5 MCH 25.7 MCHC 31.9 L RDW Std Deviation 49.7 H RDW Coeff of Della 17.0 H Plt Count 349 MPV 9.1 Immature Gran % (Auto) 0.3 Neut % (Auto) 71.2 Lymph % (Auto) 18.6 Saunders % (Auto) 6.7 Eos % (Auto) 2.8 Baso % (Auto) 0.4 Neut # (Auto) 8.47 H Lymph # (Auto) 2.22 Saunders # (Auto) 0.80 H Eos # (Auto) 0.33 Baso # (Auto) 0.05 Immature Gran # (Auto) 0.04 H Absolute Nucleated RBC Nucleated RBC % (auto) Neutrophils % (Manual) Band Neutrophils % Lymphocytes % (Manual) Prolymphocyte % Reactive Lymphs % (Man) Monocytes % (Manual) Eosinophils % (Manual) Basophils % (Manual) Metamyelocytes % (Man) Myelocytes % (Man) Promyelocytes % (Man) Blast Cells % (Manual) Plasma Cell % (Manual) Other Cells % Nucleated RBC % Neutrophils # (Manual) Band Neutrophils # Total Absolute Neuts Lymphocytes # (Manual) Prolymphocyte # Reactive Lymphs # Total Abs Lymphocytes Monocytes # (Manual) Eosinophils # (Manual) Basophils # (Manual) Metamyelocytes # (Man) Myelocytes # (Manual) Promyelocytes # (Man) Blast Cells # (Man) Plasma Cell # (Manual) Other Cells # Nucleated RBCs # (Man) Hypersegmented Neuts Hyposegmented Neuts Hypogranular Neuts Large Granular Lymphs # Lrg Granular Lymphs Hairy Cells Smudge Cells Toxic Granulation Toxic Vacuolation Dohle Bodies Landon Rods Platelet Estimate Hypogranular Platelets Clumped Platelets Giant Platelets Platelet Satelliting RBC Morphology Polychromasia Hypochromasia Poikilocytosis Basophilic Stippling Anisocytosis Microcytosis Macrocytosis Spherocytes Pappenheimer Bodies Sickle Cells Target Cells Tear Drop Cells Ovalocytes Stomatocytes [place] Bodies Echinocytes Acanthocytes (Spur) Rouleaux RBC Agglutinates Schistocytes RBC Morph Comment Sezary Cell PT 11.3 INR 1.1 APTT 30.8 PTT Ratio 1.1 Sodium Potassium Chloride Carbon Dioxide Anion Gap BUN Creatinine Est Cr Clr Drug Dosing Est GFR ( Amer) Est GFR (Non-Af Amer) BUN/Creatinine Ratio Glucose Calcium Magnesium Total Bilirubin AST ALT Alkaline Phosphatase Troponin I < 0.015 Total Protein Albumin Globulin Albumin/Globulin Ratio Triglycerides Cholesterol LDL Cholesterol, Calc VLDL Cholesterol, Calc HDL Cholesterol Cholesterol/HDL Ratio Lipase 02/14/20 02/14/20 02/14/20 07:41 07:41 07:41 WBC 12.12 H RBC 4.85 Hgb 12.1 Hct 38.8 MCV 80.0 MCH 24.9 L MCHC 31.2 L RDW Std Deviation 49.8 H RDW Coeff of Della 16.9 H Plt Count 400 MPV 8.8 Immature Gran % (Auto) 0.2 Neut % (Auto) 73.0 Lymph % (Auto) 19.8 Saunders % (Auto) 5.0 Eos % (Auto) 1.8 Baso % (Auto) 0.2 Neut # (Auto) 8.83 H Lymph # (Auto) 2.40 Saunders # (Auto) 0.61 H Eos # (Auto) 0.22 Baso # (Auto) 0.03 Immature Gran # (Auto) 0.03 H Absolute Nucleated RBC Nucleated RBC % (auto) Neutrophils % (Manual) Band Neutrophils % Lymphocytes % (Manual) Prolymphocyte % Reactive Lymphs % (Man) Monocytes % (Manual) Eosinophils % (Manual) Basophils % (Manual) Metamyelocytes % (Man) Myelocytes % (Man) Promyelocytes % (Man) Blast Cells % (Manual) Plasma Cell % (Manual) Other Cells % Nucleated RBC % Neutrophils # (Manual) Band Neutrophils # Total Absolute Neuts Lymphocytes # (Manual) Prolymphocyte # Reactive Lymphs # Total Abs Lymphocytes Monocytes # (Manual) Eosinophils # (Manual) Basophils # (Manual) Metamyelocytes # (Man) Myelocytes # (Manual) Promyelocytes # (Man) Blast Cells # (Man) Plasma Cell # (Manual) Other Cells # Nucleated RBCs # (Man) Hypersegmented Neuts Hyposegmented Neuts Hypogranular Neuts Large Granular Lymphs # Lrg Granular Lymphs Hairy Cells Smudge Cells Toxic Granulation Toxic Vacuolation Dohle Bodies Landon Rods Platelet Estimate Hypogranular Platelets Clumped Platelets Giant Platelets Platelet Satelliting RBC Morphology Polychromasia Hypochromasia Poikilocytosis Basophilic Stippling Anisocytosis Microcytosis Macrocytosis Spherocytes Pappenheimer Bodies Sickle Cells Target Cells Tear Drop Cells Ovalocytes Stomatocytes [place] Bodies Echinocytes Acanthocytes (Spur) Rouleaux RBC Agglutinates Schistocytes RBC Morph Comment Sezary Cell PT INR APTT PTT Ratio Sodium 136 Potassium 4.0 Chloride 104 Carbon Dioxide 26 Anion Gap 6.0 BUN 14 Creatinine 0.77 Est Cr Clr Drug Dosing 116.1 Est GFR ( Amer) 97.3 Est GFR (Non-Af Amer) 83.9 BUN/Creatinine Ratio 17.5 Glucose 110 H Calcium 9.0 Magnesium 2.3 Total Bilirubin AST ALT Alkaline Phosphatase Troponin I < 0.015 Total Protein Albumin Globulin Albumin/Globulin Ratio Triglycerides 74 Cholesterol 149 LDL Cholesterol, Calc 71 VLDL Cholesterol, Calc 15 HDL Cholesterol 63 Cholesterol/HDL Ratio 2 Lipase 02/14/20 13:09 WBC RBC Hgb Hct MCV MCH MCHC RDW Std Deviation RDW Coeff of Della Plt Count MPV Immature Gran % (Auto) Neut % (Auto) Lymph % (Auto) Saunders % (Auto) Eos % (Auto) Baso % (Auto) Neut # (Auto) Lymph # (Auto) Saunders # (Auto) Eos # (Auto) Baso # (Auto) Immature Gran # (Auto) Absolute Nucleated RBC Nucleated RBC % (auto) Neutrophils % (Manual) Band Neutrophils % Lymphocytes % (Manual) Prolymphocyte % Reactive Lymphs % (Man) Monocytes % (Manual) Eosinophils % (Manual) Basophils % (Manual) Metamyelocytes % (Man) Myelocytes % (Man) Promyelocytes % (Man) Blast Cells % (Manual) Plasma Cell % (Manual) Other Cells % Nucleated RBC % Neutrophils # (Manual) Band Neutrophils # Total Absolute Neuts Lymphocytes # (Manual) Prolymphocyte # Reactive Lymphs # Total Abs Lymphocytes Monocytes # (Manual) Eosinophils # (Manual) Basophils # (Manual) Metamyelocytes # (Man) Myelocytes # (Manual) Promyelocytes # (Man) Blast Cells # (Man) Plasma Cell # (Manual) Other Cells # Nucleated RBCs # (Man) Hypersegmented Neuts Hyposegmented Neuts Hypogranular Neuts Large Granular Lymphs # Lrg Granular Lymphs Hairy Cells Smudge Cells Toxic Granulation Toxic Vacuolation Dohle Bodies Landon Rods Platelet Estimate Hypogranular Platelets Clumped Platelets Giant Platelets Platelet Satelliting RBC Morphology Polychromasia Hypochromasia Poikilocytosis Basophilic Stippling Anisocytosis Microcytosis Macrocytosis Spherocytes Pappenheimer Bodies Sickle Cells Target Cells Tear Drop Cells Ovalocytes Stomatocytes [place] Bodies Echinocytes Acanthocytes (Spur) Rouleaux RBC Agglutinates Schistocytes RBC Morph Comment Sezary Cell PT INR APTT PTT Ratio Sodium Potassium Chloride Carbon Dioxide Anion Gap BUN Creatinine Est Cr Clr Drug Dosing Est GFR ( Amer) Est GFR (Non-Af Amer) BUN/Creatinine Ratio Glucose Calcium Magnesium Total Bilirubin AST ALT Alkaline Phosphatase Troponin I < 0.015 Total Protein Albumin Globulin Albumin/Globulin Ratio Triglycerides Cholesterol LDL Cholesterol, Calc VLDL Cholesterol, Calc HDL Cholesterol Cholesterol/HDL Ratio Lipase Diagnostic Findings Echocardiogram 12/28/2019Normal LV chamber size with mild concentric LVH. Normal LV systolic function without regional wall motion abnormality. Calculated LV ejection Fraction = 61% (bi-plane method of discs). Grade 2 diastolic dysfunction. Focal calcification of the posterior mitral valve leaflet without significant mitral regurgitation or stenosis.
--- NOTE | 2020-02-14 19:16 | Electrocardiogram Report ---
Test Reason : Blood Pressure : / mmHG Vent. Rate : 091 BPM Atrial Rate : 091 BPM P-R Int : 188 ms QRS Dur : 100 ms QT Int : 364 ms P-R-T Axes : 038 031 057 degrees QTc Int : 447 ms Normal sinus rhythm Normal ECG When compared with ECG of 11-APR-2016 06:51, Premature atrial complexes are no longer Present Confirmed by Casper Hercules ([id number]) on 02/14/2020 7:16:00 PM Referred By: REFERRED SELF Confirmed By:Darek Hercules
--- NOTE | 2020-02-14 20:09 | Communication Note ---
Date of Service: February 14, 2020 patient seen and examined at bedside chart reviewed no recurrence of chest pain EKG no signs of infarct troponin negative x 3 PE not in distress clear breath sounds bilaterally normal rate, reg rhythm, no murmurs no edema Cardiology consulted, for stress test tomorrow Randy Millan MD
[2020-02-14] MEDS ORDERED: MONTELUKAST SODIUM 10 MG TABLET PO SCH (21:00)
[2020-02-14] MEDS: LOSARTAN POTASSIUM 25 MG TAB PO SCH (21:08)
[2020-02-15] MEDS: LEVOTHYROXINE SODIUM 125 MCG TABLET PO SCH (06:06)
[2020-02-15] MEDS: CLOTRIMAZOLE/BETAMETHASONE CR 15 GM TUBE EXT SCH (12:27)
[2020-02-15] MEDS: FUROSEMIDE 40 MG TAB PO SCH (12:28)
[2020-02-15] MEDS: FLUTICASONE FUROATE 200MCG 14 PUFFS/INHALER INH SCH (12:28)
[2020-02-15] MEDS: MULTIVITAMIN TAB PO SCH (12:28)
[2020-02-15] MEDS: ASCORBIC ACID 500 MG TAB PO SCH (12:28)
[2020-02-15] MEDS: FERROUS SULFATE 325 MG TAB PO SCH (12:28)
[2020-02-15] MEDS: carvediloL 12.5 MG TAB PO SCH (12:29)
[2020-02-15] MEDS: LORATADINE 10 MG TAB PO SCH (12:29)
[2020-02-15] MEDS: LOSARTAN POTASSIUM 25 MG TAB PO SCH (12:29)
[2020-02-15] MEDS: ASPIRIN 81 MG ECTAB PO SCH (12:29)
[2020-02-15] MEDS: CITALOPRAM 20 MG TAB PO SCH (12:29)
[2020-02-15] MEDS: METOPROLOL TARTRATE 1 MG/ML VIAL IV ONE ×2 (12:30→13:06)
[2020-02-15] MEDS: DOBUTamine HCL 12.5 MG/ML 20 ML VIAL IV ONE ×2 (12:30→13:05)
[2020-02-15] MEDS: ATROPINE SULFATE 0.1 MG/ML 10ML SYR IV ONE ×2 (12:30→13:03)
--- NOTE | 2020-02-15 12:31 | Cardiology Progress Note ---
Date of Service February 15, 2020 Assessment & Plan (1) Chest pain radiating to arm: Initial evaluations including EKGs and cardiac enzymes unremarkable for injury or ischemia. Total symptoms lasted more than 3 hours before resolve suggesting less likelihood of coronary artery disease. Echocardiogram no wall motion abnormality Plan routine stress test without evidence of ischemia with normal resting and stress LV function. Symptoms not likely due to ischemic heart disease. Patient very hypertensive on presentation with evidence of decompensated edema. Recommendations: Increase losartan to 25 mg twice per day, increase diuretic dosing by at least 40 mg 3 days/week of furosemide. Reemphasized daily weights and sodium restriction. Obesity and hypoventilation will need to be addressed Follow-up cardiology 2 to 3 weeks time (2) Obstructive sleep apnea hypopnea, severe: (3) Hypertensive heart disease with chronic diastolic congestive heart failure: Subjective Patient seen and examined, chart, medications, telemetry reviewed. No issues overnight Patient referred and underwent dobutamine stress echocardiography today with out evidence of stress-induced ischemia essentially normal study with hyperdynamic LV function and stress. Review of Systems Review of Systems: All systems reviewed & are unremarkable except as noted in HPI & below Physical Exam Constitutional: + morbidly obese Eyes: PERRL, conjunctivae normal, anicteric sclerae ENMT: external ear and nose normal, oropharynx normal Respiratory: Diminished breath sounds Cardiovascular: Rate/Rhythm: regular rate and regular rhythm Heart Sounds: normal S1 and normal S2; no murmur Vessels: no JVD Extremities: + edema (2-3+ combination lymphedema and edema both lower extremities) Gastrointestinal (Abdomen): normal bowel sounds, soft, nontender, no hepatosplenomegaly Results & Data Vital Signs (Past 12 Hours) Vital Signs Temp Pulse Resp BP Pulse Ox 02/15/20 07:14 36.4 C L 76 20 131/71 92 02/15/20 03:41 36.5 C 74 18 121/73 93 Laboratory Results Laboratory Results - last 24 hr 02/14/20 13:09 Troponin I < 0.015
--- NOTE | 2020-02-15 15:23 | Hospitalist Progress Note ---
Date of Service February 15, 2020 Assessment & Plan (1) Chest pain radiating to arm: 1. This 59-year-old female who presents with chest pain, Acute coronary syndrome ruled out Status post stress test without evidence of ischemia with normal resting stress LV function Per pillowcase cleaner, Dr. Dyer, symptoms not likely due to ischemic heart disease Hypertensive on presentation Discharge plan: Increase losartan to 25 mg twice a day Increase Lasix by adding additional dose of Lasix 40 mg Wednesdays CHF instructions given Follow-up with primary care physician in 1 week, pillowcase cleaner in 2 to 3 weeks Will need further evaluation management of obesity and hypoventilation as an ou tpatient 2. History of hypothyroidism: Continue home Synthroid. 3. History of allergic asthma: Not in exacerbation Currently stable on Singulair and loratadine. 4. Obstructive sleep apnea: On CPAP at bedtime. Close outpatient follow-up 5. History of hypertrophic cardiomyopathy, history of supraventricular tachycardia: On Coreg. 6. History of hypertension: On losartan and Coreg. We will monitor the blood pressure. 7. History of chronic diastolic congestive heart failure, has lower extremity edema: Increase diuretic as mentioned in #1 8. Morbid obesity: Need counseling. 9. Depression: On Celexa. 10. Deep venous thrombosis prophylaxis: Sequential compression devices for now. Admission and Anticipated Discharge Date Admission Date: February 14, 2020 Subjective ff up for chest pain Seen resting in bed side chair, comfortable, not in distress Good spirits No recurrence of chest pain, no shortness of breath/palpitations/dizziness Denies any other symptoms States she is back to her baseline No other symptoms States she is ready like to be discharged Review of Systems Review of Systems: All systems reviewed & are unremarkable except as noted in HPI & below Physical Exam Physical Exam: General- oriented x 3, not in distress, speaks in sentences with no effort or accessory muscle use Eyes- anicteric Neck- no JVD Lungs- clear breath sounds bilaterally, no rales/wheezes Heart- normal rate, regular rhythm; no murmurs Abdomen- normal bowel sounds, nondistended, soft, nontender Extremities-chronic lymphedema edema, no calf tenderness, erythema, warmth Neuro- alert, oriented x 3; no gross focal neurologic deficits Skin- warm & dry Results & Data Results & Data ([facility]) Vital Signs (Past 12 Hours) Vital Signs Temp Pulse Resp BP Pulse Ox 02/15/20 07:14 36.4 C L 76 20 131/71 92 02/15/20 03:41 36.5 C 74 18 121/73 93 Laboratory Results All noted and reviewed
--- NOTE | 2020-02-15 19:00 | Electrocardiogram Report ---
Test Reason : Blood Pressure : / mmHG Vent. Rate : 074 BPM Atrial Rate : 074 BPM P-R Int : 170 ms QRS Dur : 094 ms QT Int : 416 ms P-R-T Axes : 021 033 064 degrees QTc Int : 461 ms Normal sinus rhythm Low voltage QRS Abnormal ECG When compared with ECG of 14-FEB-2020 00:54, No significant change was found Confirmed by Casper Hercules ([id number]) on 02/15/2020 7:00:18 PM Referred By: REFERRED SELF Confirmed By:Darek Hercules
--- NOTE | 2020-02-18 17:54 | Discharge Summary ---
Date of Service February 18, 2020 Admission HPI Per Admitting Provider CHIEF COMPLAINT: Chest pain. HISTORY OF PRESENT ILLNESS: This is 59-year-old female with past medical history significant for allergic asthma, obstructive sleep apnea, on CPAP at bedtime, hypertrophic cardiomyopathy, history of paroxysmal SVT, hypertension, diastolic dysfunction, morbid obesity, vitamin D deficiency, generalized osteoarthritis, anemia, chronic lymphedema, depression. The patient lives with her and son, ambulates with help of cane, comes because of chest pain. The patient states in the evening around 7:00 p.m., she noticed like toothache kind of pain in the left side of chest. Then around 11:00 p.m., the pain was radiating to the left shoulder when they decided to come to the ER. She says the pain was 10/10 at that time. Right now the pain is almost resolved. She received nitroglycerin in the ER. Currently, resting comfortably and hemodynamically stable. The patient says she had some issues with shortness of breath in first week of December that got resolved, but since last few days again, she gets short of breath mostly with exertion. Denies any dizziness, no nausea. No blurred vision. No headache, no earache, no runny nose, no sore throat, no cough, no difficulty swallowing. No loss of sense of smell or taste. No exposure to COVID patients. No nausea, no abdominal pain. Normal bowel and bladder movements. No blood in the stools or black stools. No rash. Admission Exam Per Admitting Provider GENERAL: The patient is morbidly obese, not in acute distress. VITAL SIGNS: Temperature 36.8, pulse 86, respiratory rate 20, blood pressure 112/57, oxygen 98% on room air. HEENT: No pallor, no icterus. NECK: No JVD, no neck masses, no carotid bruits. CARDIOVASCULAR: S1, S2 heard, regular rate and rhythm, no murmur, no gallop. RESPIRATORY SYSTEM: Normal AP diameter. No accessory muscle use. No wheezing, no crackles. ABDOMEN: Soft, bowel sounds present, nontender. No distention. CENTRAL NERVOUS SYSTEM: Cranial nerves II-XII grossly intact, nonfocal. EXTREMITIES: Mild chronic pedal edema present, no erythema seen. Principal Diagnosis CHEST PAIN, ACUTE CORONARY SYNDROME RULED OUT Discharge Exam General- oriented x 3, not in distress, speaks in sentences with no effort or accessory muscle use Eyes- anicteric Neck- no JVD Lungs- clear breath sounds bilaterally, no rales/wheezes Heart- normal rate, regular rhythm; no murmurs Abdomen- normal bowel sounds, nondistended, soft, nontender Extremities-chronic lymphedema edema, no calf tenderness, erythema, warmth Neuro- alert, oriented x 3; no gross focal neurologic deficits Skin- warm & dry Discharge Data Allergies Allergy/AdvReac Type Severity Reaction Status Date / Time morphine AdvReac Intermediate ABD PAIN, Verified 02/14/20 01:54 NAUSEA AND VOMITING Consultations 02/14/20 05:24 Consult Case Management - Discharge Planning Routine 02/14/20 08:00 Consult Cardiology Routine Hospital Course (1) Chest pain radiating to arm: 1. This 59-year-old female who presents with Chest pain, Acute coronary syndrome ruled out Status post stress test without evidence of ischemia with normal resting stress LV function Per asset protection manager, Dr. Dyer, symptoms not likely due to ischemic heart disease Hypertensive on presentation Discharge plan: Increase losartan to 25 mg twice a day Increase Lasix by adding additional dose of Lasix 40 mg Wednesdays CHF instructions given Follow-up with primary care physician in 1 week, asset protection manager in 2 to 3 weeks Will need further evaluation management of obesity and hypoventilation as an outpatient 2. History of hypothyroidism: Continue home Synthroid. 3. History of allergic asthma: Not in exacerbation Currently stable on Singulair and loratadine. 4. Obstructive sleep apnea: On CPAP at bedtime. Close outpatient follow-up 5. History of hypertrophic cardiomyopathy, history of supraventricular tachycardia: On Coreg. 6. History of hypertension: BP uncontrolled on admission Losartan increased to 25mg BID monitor as outpatient 7. History of chronic diastolic congestive heart failure Increase diuretic as mentioned in #1 8. Morbid obesity Will need further evaluation management of obesity and hypoventilation as an outpatient 9. Depression: stable On Celexa. Total Time Total Time Spent Total Time Spent (In Minutes): 45 minutes Discharge Plan Discharge Items Patient Disposition: Home - Self-Care Reason For Visit: CHEST PAIN Discharge Diagnosis: CHEST PAIN Activity: Resume your previous activity Activity Comment: GRADUALLY TOLERATED Non-emergency contact: Primary Care Provider Call non-emergency contact if: you have any medication questions, your symptoms worsen, your pain is not controlled, your pain is worsening, your pain is unusual for you and your pain is concerning for you Follow-up/Referrals: Salo Bryan MD [Primary Care Provider] - 02/19/20 10:20 am (02/19/2020 10:20 AM Provider Sara Snow MD Department General Internal Medicine [facility] ) Brandt Dyer MD [Physician] - Diet: Heart Healthy and Low Sodium (2gm) Addtl Attending Provider Instructions: PLEASE REVIEW YOUR NEW MEDICATION LIST BELOW. YOUR MEDICATION CHANGES INCLUDE: INCREASE LOSARTAN 25MG FROM ONCE A DAY TO TWICE A DAY INCREASE LASIX- TAKE LASIX TWICE A DAY MONDAYS, WEDNESDAYS, FRIDAYS and once day on other days CALL YOUR PRIMARY CARE PHYSICIAN OR RETURN TO THE ER IMMEDIATELY IF WITH RECURRENCE OR WORSENING OF SYMPTOMS. FOLLOW UP WITH YOUR PRIMARY CARE PHYSICIAN NOTED ABOVE. FOLLOW UP WITH [facility] DR. DYER IN 2-3 WEEKS. PLEASE CALL HIS OFFICE FOR AN APPOINTMENT. CONTACT INFORMATION NOTED ABOVE. Pending Studies at Discharge: No Stand-Alone Forms: My [facility] [place], Smoking Cessation Medications and DC Order Prescriptions: New losartan 25 mg Tablet 25 mg PO BID Qty: 60 RF: 2 furosemide 40 mg Tablet 40 mg PO UD Qty: 42 RF: 2 Continued citalopram 20 mg Tablet 20 mg PO QAM RF: 0 ferrous sulfate [iron] 325 mg (65 mg iron) Tablet 325 mg PO QAM RF: 0 levothyroxine [Synthroid] 125 mcg Tablet 250 mcg PO QAM RF: 0 montelukast [Singulair] 10 mg Tablet 10 mg PO HS RF: 0 ergocalciferol (vitamin D2) [Vitamin D2] 50,000 unit Capsule 50,000 unit PO UD RF: 0 albuterol sulfate 90 mcg/actuation Hfa Aerosol Inhaler 2 puff INHALATION Q4 PRN (Reason: Wheezing) RF: 0 Flovent HFA 110 mcg/actuation Hfa Aerosol Inhaler 2 puff INHALATION BID RF: 0 aspirin [Adult Low Dose Aspirin] 81 mg Tablet,Delayed Release (Dr/Ec) 81 mg PO QAM RF: 0 carvedilol 12.5 mg tablet 12.5 mg PO BID RF: 0 albuterol sulfate 2.5 mg /3 mL (0.083 %) Solution For Nebulization 2.5 mg INHALATION Q4 PRN (Reason: Shortness Of Breath Or Wheezing) RF: 0 ascorbic acid (vitamin C) [Vitamin C] 250 mg Tablet 250 mg PO DAILY RF: 0 clotrimazole-betamethasone 1-0.05 % cream 1 applic TOPICAL BID RF: 0 loratadine 10 mg Tablet 10 mg PO DAILY RF: 0 multivitamin Tablet 1 tab PO QAM RF: 0 Discontinued furosemide 40 mg Tablet 40 mg PO QAM RF: 0 losartan 25 mg Tablet 25 mg PO QAM RF: 0 Discharge Orders: Discharge Order (Routine); Ordered 02/15/20 Ordered By: Randy Millan Admission Data Admit Date/Time: 02/14/20 04:19 Attending Provider: Randy Millan Admit Provider: Tk Grigsby Primary Care Provider: Salo Bryan Other Providers: Riley Pacheco ; Otto Lo ; Brandt Dyer ; Fidel Plata ; Justin Enamorado ; Grey Tran ; Lexy Flanagan ; Jennifer Wolfe ; Evin Vogel Other Interventions: Discharge Summary Assessment (RN) Last Done: 02/15/20 15:23 DC Date/Time DO NOT enter until pt leaves facility: 02/15/20 16:25
== END 2020-02-15 16:25 | disposition home or self-care (01) ==
LOC: ED 00:47 → 2W 00:47
DX: G47.33 Obstructive sleep apnea (adult) (pediatric); Z99.89 Dependence on other enabling machines and devices; E66.01 Morbid (severe) obesity due to excess calories; Z68.45 Body mass index [BMI] 70 or greater, adult; Z88.5 Allergy status to narcotic agent; E03.9 Hypothyroidism, unspecified; F32.9 Major depressive disorder, single episode, unspecified; M06.9 Rheumatoid arthritis, unspecified; Z79.82 Long term (current) use of aspirin; I11.0 Hypertensive heart disease with heart failure; Z79.899 Other long term (current) drug therapy; Z79.890 Hormone replacement therapy; J45.909 Unspecified asthma, uncomplicated; Z96.653 Presence of artificial knee joint, bilateral; I50.32 Chronic diastolic (congestive) heart failure; Z99.81 Dependence on supplemental oxygen; R07.9 Chest pain, unspecified

== ENCOUNTER 2022-08-22 16:38 | Inpatient (IN) ==
[2022-08-22] MEDS ORDERED: ALBUT/IPRATROP 3MG/0.5MG NEB 3 ML VIAL INH STA (17:01)
[2022-08-22] MEDS ORDERED: methylPREDNISolone 125 MG/2 ML VIAL IV STA (17:01)
[2022-08-22] MEDS ORDERED: ACETAMINOPHEN 500 MG TAB PO STA (17:04)
[2022-08-22] MEDS ORDERED: cefTRIAXone SODIUM 2,000 MG/70 ML BAG IV STA (17:04)
--- NOTE | 2022-08-22 17:16 | Emergency Department Note ---
Impression & Plan COVID-19, Febrile illness, acute, Hypoxia, Shortness of breath, SIRS (systemic inflammatory response syndrome) ED Provider Note INFORMANT: Patient ED PROVIDER(S): Devin Conde MD CHIEF COMPLAINT: Shortness of breath PLAN: Disposition: Admitted Condition: Guarded Outpatient prescription management: none Referral: None MEDICAL DECISION MAKING: patient presented because of shortness of breath. She was found to have hypoxia. She did require moderate supplemental nasal oxygen. She was febrile. Septic work-up initiated. The patient was found to have a marked leukocytosis of 26,000 and left shift on differential. She did have an elevated troponin and BNP as well. The patient's lactate was within normal limits. She was treated with a DuoNeb as well as Solu-Medrol IV. She was given broad-spectrum antibiotics with Rocephin and vancomycin. Patient was given gentle fluid hydration due to her history of CHF, respiratory issues, peripheral edema, and elevated BNP. Chest x-ray did not reveal any obvious pneumonia. Urinalysis was pending. The patient had a bio fire respiratory panel sent and she was found to have COVID-19. Patient still remains tachypneic with increased work of breathing. Further management will be necessary in the hospital given the COVID-19, hypoxia, and marked leukocytosis. [facility]. Case was discussed and diagnostics were reviewed. The team evaluated the patient in the emergency department and she was admitted for further management. After review of the information above and other included data, I feel the patient requires inpatient treatment. Triage Nursing notes reviewed and agree them. Vital Signs: reviewed and remarkable for tachypnea, fever Prior /Outside records reviewed: Urgent care clinic notes reviewed. Patient was prescribed prednisone and azithromycin. Differential diagnosis: Viral syndrome, pneumonia, reactive airway disease, pneumothorax, COPD, CHF, infections, cardiac ischemia, pulmonary embolism, musculoskeletal, gastrointestinal, as well as other pathologies. Diagnostics, as interpreted by me: ECG: Twelve-lead ECG reveals a sinus tachycardia [address] elevation or depression. No PACs or PVCs. Cardiac Monitoring: Cardiac monitoring ordered by me: The patient was placed on continuous cardiac monitoring and observed. It revealed a normal sinus rhythm at 90 beats per minute without ectopy or evidence of dysrhythmia. Medical decision rules: none Imaging studies: Chest x-ray. Findings: A chest x-ray was performed and revealed no pneumothorax, effusion, infiltrate, pulmonary edema, free air under the diaphragm, or wide mediastinum. Impression: No acute disease. HPI: The patient is a 61year old female who presents to the Emergency Room with complaints of shortness of breath. This started 3 to 4 days ago and is worsening. The patient also notes the following associated symptoms, fever, generalized weakness. The patient has been seen by urgent care today and was prescribed prednisone and Zithromax relieving factors. Current pain is rated as 0/10. The patient was weaker and EMS was summoned. She was noted to be 89% on room air and tachypneic. Denies any sick contacts. Pt denies LOC, headache,diaphoresis, visual changes, neck pain, chest pain, nausea, vomiting, abdominal pain, back pain, melena, hematochezia, urinary symptoms, numbness, lymphadenopathy, rash, or other complaints. PAST MEDICAL HISTORY: See Below, hypertension, HOCM, sepsis, CHF PAST SURGICAL HISTORY: See Below, hysterectomy, knee replacement SOCIAL HISTORY: See Below, HOME MEDICATIONS: See Below ALLERGIES: See Below VITALS: See Below PHYSICAL EXAMINATION: GENERAL: Awake, tired , ill-appearing, in moderate distress HENT: Normocephalic, atraumatic. Oropharynx unremarkable. EYES: Normal conjunctiva. Sclera non-icteric. NECK: Inspection normal. Non-tender. Supple. No nuchal rigidity. FROM. No masses. RESPIRATORY: Diminished breath sounds with a few scattered wheezes. No rales. Increased respiratory effort. CARDIAC: Tachycardic rate. Normal rhythm. No murmurs. No rubs. Extremities warm and well perfused. Pulses equal. No JVD. GI: Soft, non-distended. No tenderness to palpation. No rebound or guarding. No masses. RECTAL: Deferred. MUSCULOSKELETAL: Atraumatic. Chest examination reveals no tenderness. The back is symmetrical on inspection without obvious abnormality. There is no CVA tenderness to palpation. No joint edema. LOWER EXTREMITIES: Calves are equal size bilaterally and non-tender. 3+ edema. No discoloration. NEURO: Normal sensorium. Generally weak but no focal sensory or motor deficits noted. SKIN: No rash or jaundice noted. CRITICAL CARE: I have personally spent greater than 35 minutes of critical care time in the direct management of this patient. This includes bedside care, interpretation o f diagnostic studies, and testing, discussion with consultants, patient, and family members, and other required patient management activities. These minutes are in excess of all separately billable procedures. Past Med/Surg History Medical History (Updated 08/22/22 @ 22:47 by Devin Conde MD) Anemia Asthma RARE RES INH USE Cardiac murmur DX MANY YRS AGO COVID-19 Depression DM2 (diabetes mellitus, type 2) Hypertension Hypertrophic cardiomyopathy 'most likely on the basis of hypertensive heart disease' per cardio 07/2018 > FOLLOWS DR. LOCO> [facility] Hypertrophic cardiomyopathy Hypothyroidism Nausea and vomiting after administration of anesthetic agent Obesity Osteoarthritis Rheumatoid arthritis Sleep apnea uses cpap - with oxygen 2L Surgical History Difficult airway for intubation NO PROBLEMS RECENTLY (LAST SURGERY/NO PROBLEMS) History of cholecystectomy History of colonoscopy History of dilatation and curettage History of eye surgery STABISMUS REPAIRED LEFT EYE History of repair of rotator cuff left History of tooth extraction all teeth pulled History of total abdominal hysterectomy and bilateral salpingo-oophorectomy History of total knee replacement bilateral Family History Brother Family history of diabetes mellitus Sister Family history of diabetes mellitus Grandfather Family history of diabetes mellitus Grandmother Family history of diabetes mellitus Social History Smoking Status: Never smoker Second Hand Exposure: Yes ( KID); Hx Alcohol Use: No Hx Substance Use: No Preferred Language: [place] Communication Ability: Effective Digital Commentator Required: No Beliefs That Will Affect Care: None marital status: Current Living Situation: Spouse Current Living Situation Comment: son too Other Information That Helps Us Care for You: No Feels Safe at Home: Yes Safety Concerns: Feels Safe At This Time Assistive Devices: Cane, CPAP and Glasses Allergies Allergies Allergy/AdvReac Type Severity Reaction Status Date / Time morphine AdvReac Intermediate ABD PAIN, Verified 08/22/22 17:50 NAUSEA AND VOMITING Home Meds Home Medications Medication Instructions Recorded Confirmed citalopram 20 mg tablet 20 mg PO QAM 05/02/18 08/22/22 ergocalciferol (vitamin D2) 1,250 50,000 unit PO DIRECTED 05/02/18 08/22/22 mcg (50,000 unit) capsule (Vitamin D2) ferrous sulfate 325 mg (65 mg 325 mg PO QAM 05/02/18 08/22/22 iron) tablet (iron) levothyroxine 125 mcg tablet 250 mcg PO QAM 05/02/18 08/22/22 (Synthroid) albuterol sulfate 90 mcg/actuation 2 puff inhalation Q4 PRN Wheezing 05/06/18 08/22/22 aerosol inhaler aspirin 81 mg tablet,delayed 81 mg PO QAM 05/06/18 08/22/22 release (Adult Low Dose Aspirin) multivitamin 1 tab PO QAM 08/10/18 08/22/22 ascorbic acid (vitamin C) 250 mg 250 mg PO QAM 02/14/20 08/22/22 tablet (Vitamin C) carvedilol 12.5 mg tablet 12.5 mg PO BID 02/14/20 08/22/22 loratadine 10 mg tablet 10 mg PO DAILY 02/14/20 08/22/22 furosemide 40 mg tablet See Rx Instructions .Route .COMPLEX 08/26/20 08/22/22 azithromycin 250 mg tablet 250 mg PO DAILY 08/22/22 08/22/22 fluticasone propionate 50 2 spray intranasal BID 08/22/22 08/22/22 mcg/actuation nasal spray,suspension losartan 50 mg tablet 50 mg PO QAM 08/22/22 08/22/22 metformin 500 mg tablet,extended 1,000 mg PO QDD 08/22/22 08/22/22 release 24 hr prednisone 20 mg tablet 40 mg PO DAILY 08/22/22 08/22/22 sodium chloride 0.65 % nasal spray 2 spray intranasal DIRECTED PRN 08/22/22 08/22/22 aerosol (Saline Nasal) NASAL DRYNESS Results & Data (ED) Vital Signs Vital Signs - 24 hr 08/22/22 16:47 08/22/22 17:09 08/22/22 17:09 Temperature 38.1 C H Temperature Source Oral Pulse Rate 111 H Pulse Rate [Apical] Pulse Rate from SpO2 Sensor Pulse Rhythm [Apical] Pulse Strength [Apical] Respiratory Rate 30 H Respiratory Effort / Characteristics Non-Labored Spontaneous Labored Retracting Short of Breath Respiratory Depth Normal Respiratory Pattern Regular Tachypnea Blood Pressure 115/42 L Blood Pressure [Right Arm] Blood Pressure Mean 66 Blood Pressure Mean [Right Arm] Blood Pressure Position Lying Blood Pressure Position [Right Arm] Pulse Oximetry 94 Oxygen Delivery Method Room Air Nasal Cannula Room Air Oxygen Flow Rate 4 3 3 Sepsis Recent Fever Within 48 Hours Yes Sepsis New/Unexplained Change in Mental Status No Sepsis Action Taken by Nursing Physician Notified 08/22/22 17:09 08/22/22 17:09 08/22/22 18:00 Temperature 37.2 C Temperature Source Oral Pulse Rate Pulse Rate [Apical] 114 H Pulse Rate from SpO2 Sensor Pulse Rhythm [Apical] Regular Pulse Strength [Apical] Normal Respiratory Rate 50 H Respiratory Effort / Characteristics Accessory Muscle Use Labored Retracting Short of Breath Respiratory Depth Shallow Respiratory Pattern Tachypnea Blood Pressure Blood Pressure [Right Arm] 115/42 L Blood Pressure Mean Blood Pressure Mean [Right Arm] 66 Blood Pressure Position Blood Pressure Position [Right Arm] Lying Pulse Oximetry 95 95 Oxygen Delivery Method Nasal Cannula Nasal Cannula Oxygen Flow Rate 3 3 Sepsis Recent Fever Within 48 Hours Sepsis New/Unexplained Change in Mental Status Sepsis Action Taken by Nursing 08/22/22 17:02 08/22/22 17:10 08/22/22 17:20 Temperature Temperature Source Pulse Rate 111 H 113 H 112 H Pulse Rate [Apical] Pulse Rate from SpO2 Sensor 110 H 113 H 112 H Pulse Rhythm [Apical] Pulse Strength [Apical] Respiratory Rate 47 H 44 H 32 H Respiratory Effort / Characteristics Respiratory Depth Respiratory Pattern Blood Pressure Blood Pressure [Right Arm] Blood Pressure Mean Blood Pressure Mean [Right Arm] Blood Pressure Position Blood Pressure Position [Right Arm] Pulse Oximetry 95 97 97 Oxygen Delivery Method Oxygen Flow Rate Sepsis Recent Fever Within 48 Hours Sepsis New/Unexplained Change in Mental Status Sepsis Action Taken by Nursing 08/22/22 17:30 08/22/22 17:30 08/22/22 17:40 Temperature Temperature Source Pulse Rate 109 H 110 H Pulse Rate [Apical] Pulse Rate from SpO2 Sensor 108 H 110 H Pulse Rhythm [Apical] Pulse Strength [Apical] Respiratory Rate 33 H 43 H Respiratory Effort / Characteristics Respiratory Depth Respiratory Pattern Blood Pressure 118/48 L Blood Pressure [Right Arm] Blood Pressure Mean 71 Blood Pressure Mean [Right Arm] Blood Pressure Position Blood Pressure Position [Right Arm] Pulse Oximetry 99 97 Oxygen Delivery Method Oxygen Flow Rate Sepsis Recent Fever Within 48 Hours Sepsis New/Unexplained Change in Mental Status Sepsis Action Taken by Nursing 08/22/22 17:50 08/22/22 18:00 08/22/22 18:00 Temperature Temperature Source Pulse Rate 112 H 109 H Pulse Rate [Apical] Pulse Rate from SpO2 Sensor Pulse Rhythm [Apical] Pulse Strength [Apical] Respiratory Rate 41 H 48 H Respiratory Effort / Characteristics Respiratory Depth Respiratory Pattern Blood Pressure 107/47 L Blood Pressure [Right Arm] Blood Pressure Mean 67 Blood Pressure Mean [Right Arm] Blood Pressure Position Blood Pressure Position [Right Arm] Pulse Oximetry Oxygen Delivery Method Oxygen Flow Rate Sepsis Recent Fever Within 48 Hours Sepsis New/Unexplained Change in Mental Status Sepsis Action Taken by Nursing 08/22/22 18:10 08/22/22 18:15 08/22/22 18:15 Temperature Temperature Source Pulse Rate 112 H 111 H Pulse Rate [Apical] Pulse Rate from SpO2 Sensor Pulse Rhythm [Apical] Pulse Strength [Apical] Respiratory Rate 39 H 44 H Respiratory Effort / Characteristics Respiratory Depth Respiratory Pattern Blood Pressure 111/50 L Blood Pressure [Right Arm] Blood Pressure Mean 70 Blood Pressure Mean [Right Arm] Blood Pressure Position Blood Pressure Position [Right Arm] Pulse Oximetry Oxygen Delivery Method Oxygen Flow Rate Sepsis Recent Fever Within 48 Hours Sepsis New/Unexplained Change in Mental Status Sepsis Action Taken by Nursing 08/22/22 18:20 Temperature Temperature Source Pulse Rate 112 H Pulse Rate [Apical] Pulse Rate from SpO2 Sensor Pulse Rhythm [Apical] Pulse Strength [Apical] Respiratory Rate 41 H Respiratory Effort / Characteristics Respiratory Depth Respiratory Pattern Blood Pressure Blood Pressure [Right Arm] Blood Pressure Mean Blood Pressure Mean [Right Arm] Blood Pressure Position Blood Pressure Position [Right Arm] Pulse Oximetry Oxygen Delivery Method Oxygen Flow Rate Sepsis Recent Fever Within 48 Hours Sepsis New/Unexplained Change in Mental Status Sepsis Action Taken by Nursing Laboratory Data 08/22/22 17:01 08/22/22 17:01 Lab Results 08/22/22 08/22/22 08/22/22 Range/Units 17:01 17:01 17:01 WBC 26.09 H (4.8-10.8) K/ul RBC 4.78 (3.93-5.22) M/uL Hgb 12.6 (12.0-16.0) g/dl Hct 39.0 (34.1-44.9) % MCV 81.6 (80.0-100.0) fL MCH 26.4 (25.0-34.0) pg MCHC 32.3 (32.0-36.0) g/dL RDW Std Deviation 49.2 H (36.4-46.3) fL RDW Coeff of Della 16.6 H (11.5-14.5) % Plt Count 297 (130-400) K/uL MPV 10.0 (9.4-12.3) fL Immature Gran % (Auto) 1.0 % Neut % (Auto) 90.3 % Lymph % (Auto) 3.3 % [place] % (Auto) 5.2 % Eos % (Auto) 0.0 % Baso % (Auto) 0.2 % Neut # (Auto) 23.54 H (1.4-6.5) K/uL Lymph # (Auto) 0.85 L (1.2-3.4) K/uL [place] # (Auto) 1.36 H (0.24-0.82) K/uL Eos # (Auto) 0.01 (0-0.50) K/uL Baso # (Auto) 0.06 (0-0.2) K/uL Immature Gran # (Auto) 0.27 H (0.00-0.02) K/uL PT (9.0-12.0) Seconds INR (0.9-1.1) D-Dimer (0-500) ug/L FEU VBG pH (7.36-7.41) VBG pCO2 (38-50) mmHg VBG pO2 mmHg VBG HCO3 mmol/L VBG O2 Saturation % VBG Base Excess mEq/L Sodium 134 L (136-145) mmol/L Potassium 3.7 (3.5-5.1) mmol/L Chloride 99 (98-107) mmol/L Carbon Dioxide 27 (21-32) mmol/L Anion Gap 8 (3-11) BUN 19 (6-23) mg/dl Creatinine 1.13 (0.6-1.2) mg/dl Est Cr Clr Drug Dosing 75.4 ml/min Est GFR ( Amer) 60.3 ml/min Est GFR (Non-Af Amer) 52.0 ml/min BUN/Creatinine Ratio 16.8 (10-20) Glucose 154 H (70-99(Fasting)) mg/dl Lactate (0.4-2.0) mmol/L Calcium 9.4 (8.5-10.1) mg/dl Magnesium 1.7 (1.7-2.4) mg/dl Total Bilirubin 0.8 (0.2-1.0) mg/dl AST 20 (13-39) U/L ALT 19 (7-52) U/L Alkaline Phosphatase 63 (34-104) U/L Troponin I High Sens 35.5 H (0-14) pg/ml B-Natriuretic Peptide 211 H (0-100) pg/ml Total Protein 8.3 (6.0-8.3) gm/dl Albumin 4.0 (3.4-5.0) gm/dl Globulin 4.3 H (2.5-4.0) gm/dl Albumin/Globulin Ratio 0.9 (0.9-2) Adenovirus (PCR) (NotDetected) B. pertussis DNA (PCR) (NotDetected) B.parapertussis DNA PCR (NotDetected) C. pneumoniae DNA (PCR) (NotDetected) Coronavirus OC43 (PCR) (NotDetected) Coronavirus HKU1 (PCR) (NotDetected) Coronavirus 229E (PCR) (NotDetected) SARS-CoV-2 (PCR) (NotDetected) Coronavirus NL63 (PCR) (NotDetected) Human Metapneumovir PCR (NotDetected) Influenza Type A (PCR) (NotDetected) Influenza Type B (PCR) (NotDetected) M. pneumoniae (PCR) (NotDetected) Parainfluenza 1 (PCR) (NotDetected) Parainfluenza 2 (PCR) (NotDetected) Parainfluenza 3 (PCR) (NotDetected) Parainfluenza 4 (PCR) (NotDetected) RSV (PCR) (NotDetected) Entero/Rhino (PCR) (NotDetected) 08/22/22 08/22/22 08/22/22 Range/Units 17:01 17:01 17:01 WBC (4.8-10.8) K/ul RBC (3.93-5.22) M/uL Hgb (12.0-16.0) g/dl Hct (34.1-44.9) % MCV (80.0-100.0) fL MCH (25.0-34.0) pg MCHC (32.0-36.0) g/dL RDW Std Deviation (36.4-46.3) fL RDW Coeff of Della (11.5-14.5) % Plt Count (130-400) K/uL MPV (9.4-12.3) fL Immature Gran % (Auto) % Neut % (Auto) % Lymph % (Auto) % [place] % (Auto) % Eos % (Auto) % Baso % (Auto) % Neut # (Auto) (1.4-6.5) K/uL Lymph # (Auto) (1.2-3.4) K/uL [place] # (Auto) (0.24-0.82) K/uL Eos # (Auto) (0-0.50) K/uL Baso # (Auto) (0-0.2) K/uL Immature Gran # (Auto) (0.00-0.02) K/uL PT 12.1 H (9.0-12.0) Seconds INR 1.1 (0.9-1.1) D-Dimer (0-500) ug/L FEU VBG pH (7.36-7.41) VBG pCO2 (38-50) mmHg VBG pO2 mmHg VBG HCO3 mmol/L VBG O2 Saturation % VBG Base Excess mEq/L Sodium (136-145) mmol/L Potassium (3.5-5.1) mmol/L Chloride (98-107) mmol/L Carbon Dioxide (21-32) mmol/L Anion Gap (3-11) BUN (6-23) mg/dl Creatinine (0.6-1.2) mg/dl Est Cr Clr Drug Dosing ml/min Est GFR ( Amer) ml/min Est GFR (Non-Af Amer) ml/min BUN/Creatinine Ratio (10-20) Glucose (70-99(Fasting)) mg/dl Lactate 2.0 (0.4-2.0) mmol/L Calcium (8.5-10.1) mg/dl Magnesium (1.7-2.4) mg/dl Total Bilirubin (0.2-1.0) mg/dl AST (13-39) U/L ALT (7-52) U/L Alkaline Phosphatase (34-104) U/L Troponin I High Sens (0-14) pg/ml B-Natriuretic Peptide (0-100) pg/ml Total Protein (6.0-8.3) gm/dl Albumin (3.4-5.0) gm/dl Globulin (2.5-4.0) gm/dl Albumin/Globulin Ratio (0.9-2) Adenovirus (PCR) Not Detected (NotDetected) B. pertussis DNA (PCR) Not Detected (NotDetected) B.parapertussis DNA PCR Not Detected (NotDetected) C. pneumoniae DNA (PCR) Not Detected (NotDetected) Coronavirus OC43 (PCR) Not Detected (NotDetected) Coronavirus HKU1 (PCR) Not Detected (NotDetected) Coronavirus 229E (PCR) Not Detected (NotDetected) SARS-CoV-2 (PCR) DETECTED A* (NotDetected) Coronavirus NL63 (PCR) Not Detected (NotDetected) Human Metapneumovir PCR Not Detected (NotDetected) Influenza Type A (PCR) Not Detected (NotDetected) Influenza Type B (PCR) Not Detected (NotDetected) M. pneumoniae (PCR) Not Detected (NotDetected) Parainfluenza 1 (PCR) Not Detected (NotDetected) Parainfluenza 2 (PCR) Not Detected (NotDetected) Parainfluenza 3 (PCR) Not Detected (NotDetected) Parainfluenza 4 (PCR) Not Detected (NotDetected) RSV (PCR) Not Detected (NotDetected) Entero/Rhino (PCR) Not Detected (NotDetected) 08/22/22 08/22/22 Range/Units 17:01 17:51 WBC (4.8-10.8) K/ul RBC (3.93-5.22) M/uL Hgb (12.0-16.0) g/dl Hct (34.1-44.9) % MCV (80.0-100.0) fL MCH (25.0-34.0) pg MCHC (32.0-36.0) g/dL RDW Std Deviation (36.4-46.3) fL RDW Coeff of Della (11.5-14.5) % Plt Count (130-400) K/uL MPV (9.4-12.3) fL Immature Gran % (Auto) % Neut % (Auto) % Lymph % (Auto) % [place] % (Auto) % Eos % (Auto) % Baso % (Auto) % Neut # (Auto) (1.4-6.5) K/uL Lymph # (Auto) (1.2-3.4) K/uL [place] # (Auto) (0.24-0.82) K/uL Eos # (Auto) (0-0.50) K/uL Baso # (Auto) (0-0.2) K/uL Immature Gran # (Auto) (0.00-0.02) K/uL PT (9.0-12.0) Seconds INR (0.9-1.1) D-Dimer 3490 H* (0-500) ug/L FEU VBG pH 7.41 (7.36-7.41) VBG pCO2 43 (38-50) mmHg VBG pO2 36 mmHg VBG HCO3 27 mmol/L VBG O2 Saturation 61.0 % VBG Base Excess 2.2 mEq/L Sodium (136-145) mmol/L Potassium (3.5-5.1) mmol/L Chloride (98-107) mmol/L Carbon Dioxide (21-32) mmol/L Anion Gap (3-11) BUN (6-23) mg/dl Creatinine (0.6-1.2) mg/dl Est Cr Clr Drug Dosing ml/min Est GFR ( Amer) ml/min Est GFR (Non-Af Amer) ml/min BUN/Creatinine Ratio (10-20) Glucose (70-99(Fasting)) mg/dl Lactate (0.4-2.0) mmol/L Calcium (8.5-10.1) mg/dl Magnesium (1.7-2.4) mg/dl Total Bilirubin (0.2-1.0) mg/dl AST (13-39) U/L ALT (7-52) U/L Alkaline Phosphatase (34-104) U/L Troponin I High Sens (0-14) pg/ml B-Natriuretic Peptide (0-100) pg/ml Total Protein (6.0-8.3) gm/dl Albumin (3.4-5.0) gm/dl Globulin (2.5-4.0) gm/dl Albumin/Globulin Ratio (0.9-2) Adenovirus (PCR) (NotDetected) B. pertussis DNA (PCR) (NotDetected) B.parapertussis DNA PCR (NotDetected) C. pneumoniae DNA (PCR) (NotDetected) Coronavirus OC43 (PCR) (NotDetected) Coronavirus HKU1 (PCR) (NotDetected) Coronavirus 229E (PCR) (NotDetected) SARS-CoV-2 (PCR) (NotDetected) Coronavirus NL63 (PCR) (NotDetected) Human Metapneumovir PCR (NotDetected) Influenza Type A (PCR) (NotDetected) Influenza Type B (PCR) (NotDetected) M. pneumoniae (PCR) (NotDetected) Parainfluenza 1 (PCR) (NotDetected) Parainfluenza 2 (PCR) (NotDetected) Parainfluenza 3 (PCR) (NotDetected) Parainfluenza 4 (PCR) (NotDetected) RSV (PCR) (NotDetected) Entero/Rhino (PCR) (NotDetected) Administered Medications Sodium Chloride (Nss 1000ml) 1,000 mls @ 80 mls/hr IV .[id number] [facility] Stop: 09/21/22 17:14 Last Admin: 08/22/22 17:30 Dose: 80 mls/hr Documented By: RSL Insulin Aspart (Insulin Aspart Per Unit) 0 units SC ACHS [facility] Stop: 09/21/22 20:59 Last Admin: 08/22/22 22:31 Dose: 4 units Documented By: EL Co-signed By: ARR Discontinued Medications Acetaminophen (Acetaminophen 500 Mg Tab) 1,000 mg PO NOW STA Stop: 08/22/22 17:05 Last Admin: 08/22/22 17:30 Dose: 1,000 mg Documented By: RSL Albuterol (Albut/Ipratrop 3mg/0.5mg Neb 3 Ml Vial) 3 ml INH NOW STA Stop: 08/22/22 17:02 Last Admin: 08/22/22 17:29 Dose: 3 ml Documented By: RSL Ceftriaxone Sodium (Rocephin) 2,000 mg in 70 mls @ 140 mls/hr IV NOW STA Stop: 08/22/22 17:33 Last Infusion: 08/22/22 18:00 Dose: 0 mls/hr Documented By: Admin: 08/22/22 17:30 Dose: 140 mls/hr Documented By: DEE Vancomycin HCl 2,750 mg/ (Sodium Chloride) 555 mls @ 200 mls/hr IV NOW ONE Stop: 08/22/22 20:59 Last Admin: 08/22/22 19:38 Dose: Not Given Documented By: DEE Sodium Chloride (Nss 1000ml) 500 mls @ 999 mls/hr IV .Q31M ONE Stop: 08/22/22 18:44 Last Infusion: 08/22/22 19:03 Dose: 0 mls/hr Documented By: Admin: 08/22/22 18:30 Dose: 999 mls/hr Documented By: DEE Remdesivir 200 mg/ Sodium (Chloride) 250 mls @ 125 mls/hr IV ONE ONE; Protocol Stop: 08/22/22 21:14 Last Infusion: 08/22/22 22:21 Dose: 0 mls/hr Documented By: Admin: 08/22/22 19:23 Dose: 125 mls/hr Documented By: MARIO Insulin Glargine (Lantus Per Unit Charge) 12 units SQ BID HECTOR Stop: 09/21/22 20:59 Last Admin: 08/22/22 22:21 Dose: Not Given Documented By: DEVENDRA Insulin Glargine (Lantus Per Unit Charge) 18 units SQ ONE ONE Stop: 08/22/22 21:46 Last Admin: 08/22/22 22:31 Dose: 18 units Documented By: DEVENDRA Co-signed By: ARR Methylprednisolone (Methylprednisolone 125 Mg/2 Ml Vial) 60 mg IV NOW STA Stop: 08/22/22 17:02 Last Admin: 08/22/22 17:29 Dose: 60 mg Documented By: DEE Imaging Data Radiologist's Impression: Chest X-Ray 08/22/22 17:01 XR chest 1V portable CLINICAL HISTORY: Dyspnea TECHNIQUE: Single frontal radiograph of the chest was obtained. Comparison: None available at the time of this dictation. FINDINGS: No lines and tubes are seen. The cardiomediastinal silhouette is normal. The lungs are clear. No evidence of pleural effusion or pneumothorax. IMPRESSION: No acute chest disease. ACT 112: Negative or not required by law. Electronically signed by: Michael Reardon M.D. 08/22/2022 5:19 PM Discharge Plan Visit Data Chief Complaint: Shortness of Breath/Dyspnea Stated Complaint: SOB ED Provider: Devin Conde Discharge Problem: COVID-19, Febrile illness, acute, Hypoxia, Shortness of breath, SIRS (systemic inflammatory response syndrome) Discharge Instructions Interventions: ED Discharge Assessment Last Done: 08/22/22 21:27
--- NOTE | 2022-08-22 17:21 | XRay Report ---
XR chest 1V portable CLINICAL HISTORY: Dyspnea TECHNIQUE: Single frontal radiograph of the chest was obtained. Comparison: None available at the time of this dictation. FINDINGS: No lines and tubes are seen. The cardiomediastinal silhouette is normal. The lungs are clear. No evid ence of pleural effusion or pneumothorax. IMPRESSION: No acute chest disease. ACT 112: Negative or not required by law. Electronically signed by: Michael Reardon M.D. 08/22/2022 5:19 PM
[2022-08-22 17:27] LABS: INR 1.1 (0.9-1.1); Prothrombin Time 12.1 Seconds (9.0-12.0)
[2022-08-22] MEDS: SODIUM CHLORIDE 0.9% 1000ML 1,000 ML IV SCH (17:30)
[2022-08-22 17:36] LABS: Albumin Globulin Ratio 0.9 (0.9-2); BUN Creatinine Ratio 16.8 (10-20); Bilirubin,Total 0.8 mg/dl (0.2-1.0); Calcium 9.4 mg/dl (8.5-10.1); Creatinine Clr Calc Pharmacy 75.4 ml/min; Est GFR (African American) 60.3 ml/min; Globulin 4.3 gm/dl (2.5-4.0); Magnesium 1.7 mg/dl (1.7-2.4); Potassium 3.7 mmol/L (3.5-5.1); Total Protein 8.3 gm/dl (6.0-8.3)
[2022-08-22 17:39] LABS: Hemoglobin 12.6 g/dl (12.0-16.0); Mean Corpuscular Hemoglobin 26.4 pg (25.0-34.0); Mean Corpuscular Hgb Conc 32.3 g/dL (32.0-36.0); Mean Corpuscular Volume 81.6 fL (80.0-100.0); Platelet Count 297 K/uL (130-400); RDW Coefficient of Variation 16.6 % (11.5-14.5); RDW Standard Deviation 49.2 fL (36.4-46.3); Red Blood Count 4.78 M/uL (3.93-5.22); White Blood Count 26.09 K/ul (4.8-10.8)
[2022-08-22 17:40] LABS: Basophils # (auto) 0.06 K/uL (0-0.2); Basophils % (auto) 0.2 %; Eosinophils # (auto) 0.01 K/uL (0-0.50); Immature Granulocytes # (auto) 0.27 K/uL (0.00-0.02); Lymphocytes # (auto) 0.85 K/uL (1.2-3.4); Lymphocytes % (auto) 3.3 %; Monocytes # (auto) 1.36 K/uL (0.24-0.82); Monocytes % (auto) 5.2 %; Neutrophils # (auto) 23.54 K/uL (1.4-6.5); Neutrophils % (auto) 90.3 %
[2022-08-22 17:43] LABS: Troponin I High Sensitivity 35.5 pg/ml (0-14)
[2022-08-22 17:57] LABS: Base Excess VBG 2.2 mEq/L; HCO3 VBG 27 mmol/L; PCO2 VBG 43 mmHg (38-50); PO2 VBG 36 mmHg; pH VBG 7.41 (7.36-7.41)
[2022-08-22] MEDS ORDERED: VANCOMYCIN CONSULT ACTIVE PRN (18:13)
[2022-08-22] MEDS ORDERED: VANCOMYCIN HCL 2,750 MG in SODIUM CHLORIDE 0.9% 500 ML IV ONE (18:13)
[2022-08-22] MEDS ORDERED: SODIUM CHLORIDE 0.9% 1000ML 500 ML IV ONE (18:14)
[2022-08-22 18:15] LABS: Adenovirus PCR Not Detected (NotDetected); Bordetella parapertussis PCR Not Detected (NotDetected); Bordetella pertussis PCR Not Detected (NotDetected); Chlamydia pneumoniae PCR Not Detected (NotDetected); Coronavirus 229E PCR Not Detected (NotDetected); Coronavirus HKU1 PCR Not Detected (NotDetected); Coronavirus NL63 PCR Not Detected (NotDetected); Coronavirus OC43PCR Not Detected (NotDetected); Human Metapneumovirus PCR Not Detected (NotDetected); Influenza A PCR Not Detected (NotDetected); Influenza B PCR Not Detected (NotDetected); Mycoplasma pneumoniae PCR Not Detected (NotDetected); Parainfluenza Virus 1 PCR Not Detected (NotDetected); Parainfluenza Virus 2 PCR Not Detected (NotDetected); Parainfluenza Virus 3 PCR Not Detected (NotDetected); Parainfluenza Virus 4 PCR Not Detected (NotDetected); Respiratory Syncytial VirusPCR Not Detected (NotDetected); Rhinovirus/Enterovirus PCR Not Detected (NotDetected)
[2022-08-22 18:23] LABS: Coronavirus CoV-2 (COVID19)PCR DETECTED (NotDetected)
[2022-08-22] MEDS ORDERED: MAGNESIUM HYDROXIDE SUSP 30 ML UDC PO PRN (18:30)
[2022-08-22] MEDS ORDERED: POLYETHYLENE (MIRALAX) 17 GM PACK PO PRN (18:30)
[2022-08-22] MEDS ORDERED: ALUMINUM/MAGNESIUM SUSP 30 ML UDC PO PRN (18:30)
[2022-08-22] MEDS ORDERED: ONDANSETRON INJ 2 MG/ML 2 ML VIAL IV PRN (18:30)
--- NOTE | 2022-08-22 18:36 | History & Physical Report ---
Date of Service August 22, 2022 Assessment & Plan (1) COVID-19: (2) Hypoxia: (3) Shortness of breath: (4) Hypertension: (5) Asthma: (6) Depression: (7) Hypothyroid: (8) Obesity: (9) Obstructive sleep apnea hypopnea, severe: (10) DM2 (diabetes mellitus, type 2): (11) Hypertrophic cardiomyopathy: Plan 61-year-old presents with tachypnea, tachycardia, leukocytosis WBC 26. Patient positive COVID started on remdesivir and Decadron.Elevated BNP to 211. D-Dimer > 3000. Chest CTA pending. Sepsis in setting of COVID-19: Hypoxia: tachypnea,tachycardia, leukocytosis CXR: Shows no acute chest disease or evidence of pleural effusion or pneumothorax. DuoNeb in ED; continue 4 times daily and every 2 as needed Start ceftriaxone Procalcitonin pending Lactic acid pending VBG pending Blood Cultures Pending BNP 221 Troponin 35.5; likely in setting of ischemic demand Covid-19 +. WBC 26.09 VBH: pH 7.41, Co2 43, HCO3 27 Decadron 6 mg IV Daily Pt consented to Remdesivir; eGFR > 60; ordered with loading dose Gentle IV fluids x2 bags due to elevated BNP; decreased appetite; discontinued d/t heart failure flutter value Q4 and ISB Congestive Heart Failure: Hypertrophic cardiomyopathy: -Takes Lostartan; continue -ECHO 12/2019: G2 diastolic dysfunction. EF 61%Mild aortic stenosis -BNP 221 -Takes Lasix; continue Hypertension: -Takes carvedilol and losartan; continue -Troponin 35.5; likely in setting of ischemic demand -ECHO pending Asthma: NICKO: -Takes Singulair, Flovent, albuterol as needed; continue -CPAP at night; continue DM2: -A1C check in AM -Takes Metformin; discontinue while here and place on SSI. -ACHS FSBS -Monitor sugars closely with Decadron Depression: -Takes citalopram; continue Hypothyroidism: -Takes levothyroxine; continue Disposition: PCP Dr. Bryan CODE STATUS: Full code VTE prophylaxis: Heparin SQ A total of 88 minutes was spent with greater than 50% of that time personally reviewing all current laboratory work and diagnostic imaging studies obtained in the ED. Additionally, I was able to review the patients past medication reconciliation and history with direct visualization in the patients chart. Included in the time above, a portion of that time was spent assessing the patient while discussing and collaborating with specialists, if necessary, and making medical decisions regarding orders to be placed. All of the aforementioned completed while collaborating with Dr. Millan for a full treatment plan. Please see his addendum for further details. History of Present Illness Chief Complaint: shortness of breath Primary Care Provider: Salo Bryan MD Ms. De León is a 61-year-old female that presented to the [facility] today with increased shortness of breath and dyspnea that has been worsening for the past 3 to 4 days. Upon arrival she was tachycardic 110, tachypneic in the 30s and febrile 38.1. She was placed on 4 L. She reports being seen at urgent care today and prescribed steroids and Zithromax. CXR in ED Shows no acute chest disease or evidence of pleural effusion or pneumothorax. Patient denies headache, dizziness, chest pain, palpitations, shortness of breath, abdominal pain, recent trauma or falls, recent sick exposures, dysuria, blurry or double vision, appetite changes. Initial treatment included IV fluids, Rocephin, methylprednisone and a DuoNeb treatment. Patient is positive for COVID-19 however suspect there may be dual diagnosis for this individual. Past medical history includes hypertension, asthma, depression, hypothyroidism, obstructive sleep apnea, and obesity. Patient does have reported hypertrophic cardiomyopathy that appears to be related to hypertensive heart disease per EMR notes 07/2018. Follows outpatient cardiology. Patient is vaccinated against COVID. Patient will be admitted for further evaluation and management. Please see A/P for further details. Allergies Allergy/AdvReac Type Severity Reaction Status Date / Time morphine AdvReac Intermediate ABD PAIN, Verified 08/22/22 17:50 NAUSEA AND VOMITING Home Medications Medication Instructions Recorded Confirmed Type citalopram 20 mg tablet 20 mg PO QAM 05/02/18 08/22/22 History ergocalciferol (vitamin D2) 1,250 50,000 unit PO DIRECTED 05/02/18 08/22/22 History mcg (50,000 unit) capsule (Vitamin D2) ferrous sulfate 325 mg (65 mg 325 mg PO QAM 05/02/18 08/22/22 History iron) tablet (iron) levothyroxine 125 mcg tablet 250 mcg PO QAM 05/02/18 08/22/22 History (Synthroid) albuterol sulfate 90 mcg/actuation 2 puff inhalation Q4 PRN Wheezing 05/06/18 08/22/22 History aerosol inhaler aspirin 81 mg tablet,delayed 81 mg PO QAM 05/06/18 08/22/22 History release (Adult Low Dose Aspirin) multivitamin 1 tab PO QAM 08/10/18 08/22/22 History ascorbic acid (vitamin C) 250 mg 250 mg PO QAM 02/14/20 08/22/22 History tablet (Vitamin C) carvedilol 12.5 mg tablet 12.5 mg PO BID 02/14/20 08/22/22 History loratadine 10 mg tablet 10 mg PO DAILY 02/14/20 08/22/22 History furosemide 40 mg tablet See Rx Instructions .Route .COMPLEX 08/26/20 08/22/22 History fluticasone propionate 50 2 spray intranasal BID 08/22/22 08/22/22 History mcg/actuation nasal spray,suspension losartan 50 mg tablet 50 mg PO QAM 08/22/22 08/22/22 History metformin 500 mg tablet,extended 1,000 mg PO QDD 08/22/22 08/22/22 History release 24 hr sodium chloride 0.65 % nasal spray 2 spray intranasal DIRECTED PRN 08/22/22 08/22/22 History aerosol (Saline Nasal) NASAL DRYNESS ceftriaxone 2 gram solution for 2 g IV DAILY #10 ea 08/27/22 Rx injection Past Med/Surg History Medical History (Updated 08/23/22 @ 14:24 by Dago Hardwick MD) Anemia Asthma RARE RES INH USE Cardiac murmur DX MANY YRS AGO COVID-19 Depression DM2 (diabetes mellitus, type 2) Hypertension Hypertrophic cardiomyopathy 'most likely on the basis of hypertensive heart disease' per cardio 07/2018 > FOLLOWS DR. LOCO> [facility] Hypertrophic cardiomyopathy Hypothyroidism Nausea and vomiting after administration of anesthetic agent Obesity Osteoarthritis Rheumatoid arthritis SARS-CoV-2 antibody positive Sleep apnea uses cpap - with oxygen 2L Viral bronchitis Surgical History Difficult airway for intubation NO PROBLEMS RECENTLY (LAST SURGERY/NO PROBLEMS) History of cholecystectomy History of colonoscopy History of dilatation and curettage History of eye surgery STABISMUS REPAIRED LEFT EYE History of repair of rotator cuff left History of tooth extraction all teeth pulled History of total abdominal hysterectomy and bilateral salpingo-oophorectomy History of total knee replacement bilateral Family History Brother Family history of diabetes mellitus Sister Family history of diabetes mellitus Grandfather Family history of diabetes mellitus Grandmother Family history of diabetes mellitus Social History Smoking Status: Never smoker Second Hand Exposure: Yes ( KID); Hx Alcohol Use: No Hx Substance Use: No Preferred Language: Occitan Communication Ability: Effective Chemical Pathologist Required: No Beliefs That Will Affect Care: None marital status: Current Living Situation: Spouse Current Living Situation Comment: son too Feels Safe at Home: Yes Assistive Devices: Cane, CPAP, Oxygen - at Night, Walker and Wheelchair Review of Systems Review of Systems: Neuro: (-) Falls, trauma, slurred speech HEENT: (-) [place], dizziness, dysphagia, visual or auditory changes CV: (-) CP, palpitations, swelling Resp: (+) SOB GI: (-) appetite changes, N/V/D, bowel changes : (-) urinary changes Skin: (-) rashes Psych: (+) anxiety, depression Physical Exam Physical Exam: Neuro: AAOx4, PERRLA, no aphagia, memory changes, CNII-XII grossly intact HEENT: head normocephalic, moist mucus membranes. Using diaphragmatic muscles for breathing along with accessory muscles CV: S1/S2, (-) M/G/R, (-) edema, cap refill < 3 seconds Resp: Lungs CTA in all sharma. On 3 L nasal cannula decreased in all sharma GI: Abdomen S/NT/ND, Ax4 bowel sounds, (-) CVA tenderness Musculoskeletal: 5/5 B/L UE strength, 5/5 B/L LE strength. No gait disturbance. (+) lymphedema bilaterally Skin: (-) rashes , (-) erythema. Psych: euthymic mood Results & Data Results & Data ([facility]) Vital Signs (Past 12 Hours) Vital Signs Temp Pulse Pulse Resp BP BP Pulse Ox 08/22/22 18:00 37.2 C 08/22/22 17:09 95 08/22/22 17:09 114 H 50 H 115/42 L 95 08/22/22 17:09 08/22/22 17:09 08/22/22 16:47 38.1 C H 111 H 30 H 115/42 L 94 O2 Del Method O2 Flow Rate 08/22/22 18:00 08/22/22 17:09 Nasal Cannula 3 08/22/22 17:09 Nasal Cannula 3 08/22/22 17:09 Room Air 3 08/22/22 17:09 Nasal Cannula 3 08/22/22 16:47 Room Air 4 Laboratory Results Short CBC 08/22/22 Range/Units 17:01 WBC 26.09 H (4.8-10.8) K/ul Hgb 12.6 (12.0-16.0) g/dl Hct 39.0 (34.1-44.9) % Plt Count 297 (130-400) K/uL BMP 08/22/22 17:01 Sodium 134 L Potassium 3.7 Chloride 99 Carbon Dioxide 27 BUN 19 Creatinine 1.13 Glucose 154 H Calcium 9.4 Liver Function 08/22/22 Range/Units 17:01 Total Bilirubin 0.8 (0.2-1.0) mg/dl AST 20 (13-39) U/L ALT 19 (7-52) U/L Alkaline Phosphatase 63 (34-104) U/L Albumin 4.0 (3.4-5.0) gm/dl Diagnostic Findings Chest X-Ray 08/22/22 17:01 XR chest 1V portable CLINICAL HISTORY: Dyspnea TECHNIQUE: Single frontal radiograph of the chest was obtained. Comparison: None available at the time of this dictation. FINDINGS: No lines and tubes are seen. The cardiomediastinal silhouette is normal. The lungs are clear. No evidence of pleural effusion or pneumothorax. IMPRESSION: No acute chest disease. ACT 112: Negative or not required by law. Electronically signed by: Michael Reardon M.D. 08/22/2022 5:19 PM Code Status & VTE Plan Code Status Full code in the event of cardiac or respiratory arrest Supervising Physician Co-Signing Physician Notes delayed entry date of service noted above Attending Addendum: care coordinated with JERRICA Clay please refer to her notes for full details, I agree with her notes patient seen and examined, records reviewed by myself as well on exam, patient seen resting in bed, on 3 L NC states she is feeling better no active dyspnea, chest pain no other symptoms VS noted and reviewed oriented x 3, not in distress, speaks in sentences with no effort nor accessory muscle use normal rate, regular rhythm, no murmurs clear breath sounds bilaterally non distended, soft, nontender no bipedal edema, erythema, warmth no neuro deficits all labs noted and reviewed ASSESSMENT AND PLAN Acute hypoxic respiratory failure Likely secondary to acute asthma exacerbation with COVID-19 infection Remdesivir, Decadron Incentive spirometry, Mucinex Follow-up blood cultures other diagnoses and plan of care as per JERRICA Clay notes Randy Millan MD
[2022-08-22] MEDS ORDERED: GLUCAGON FOR INJ 1 MG VIAL SQ PRN (18:57)
[2022-08-22] MEDS ORDERED: CARBOHYDRATES FOR HYPOGLYCEMIA PO PRN (18:57)
[2022-08-22] MEDS ORDERED: GLUCOSE 10 TAB/TUBE PO PRN (18:57)
[2022-08-22] MEDS ORDERED: GLUCOSE 40% GEL 15 GM TUBE PO PRN (18:57)
[2022-08-22] MEDS ORDERED: PHARMACY GLYCEMIC MGMT CONSULT PRN (18:57)
[2022-08-22] MEDS ORDERED: DEXTROSE 50% 50 ML SYRINGE IV PRN (18:57)
[2022-08-22] MEDS ORDERED: SODIUM CHLORIDE 0.65% NA SOLN 45 ML (OCEAN) PRN (19:08)
[2022-08-22] MEDS ORDERED: REMDESIVIR 200 MG in SODIUM CHLORIDE 0.9% 210 ML IV ONE (19:15)
[2022-08-22 19:50] LABS: D Dimer 3490 ug/L FEU (0-500)
[2022-08-22] MEDS ORDERED: LANTUS PER UNIT CHARGE SQ SCH (21:00)
[2022-08-22] MEDS ORDERED: LANTUS PER UNIT CHARGE SQ ONE (21:45)
[2022-08-22] MEDS: INSULIN ASPART PER UNIT SC SCH (22:31)
[2022-08-22] MEDS: carvediloL 12.5 MG TAB PO SCH (22:45)
[2022-08-22] MEDS: ENOXAPARIN INJ 40 MG/0.4 ML SYR SQ SCH (22:45)
[2022-08-22] MEDS: FLUTICASONE PROPIONATE NA SPR 16 GM BTL SCH (22:46)
[2022-08-22] MEDS ORDERED: OPTIRAY 320 500ml IV ONE (23:27)
[2022-08-23 01:18] LABS: Appearance Urine Cloudy (Clear); Bacteria Urine Automated Negative (Negative); Bilirubin Urine Negative (Negative); Blood Urine Negative (Negative); Color Urine Dark Yellow; Epithelial Cell Urine Auto >30 /lpf (0-5); Glucose Urine UA Negative (Negative); Ketones Urine Trace (Negative); Leukocyte Esterase Urine 1+ (Negative); Nitrite Urine Positive (Negative); Protein Urine 1+ (Negative); RBC Urine Automated 0-4 /hpf (0-4); Specific Gravity Urine 1.031 (1.000-1.030); Urobilinogen Urine Negative (Negative); pH Urine 5.5 (4.5-7.5)
[2022-08-23] MEDS: SODIUM CHLORIDE 0.9% 1000ML 1,000 ML IV SCH (05:48)
[2022-08-23] MEDS: LEVOTHYROXINE SODIUM 125 MCG TABLET PO SCH (06:14)
[2022-08-23 07:35] LABS: Hematocrit (blood only) 36.1 % (34.1-44.9); Hemoglobin 11.6 g/dl (12.0-16.0); Mean Corpuscular Hemoglobin 26.4 pg (25.0-34.0); Mean Corpuscular Hgb Conc 32.1 g/dL (32.0-36.0); Mean Platelet Volume 9.1 fL (9.4-12.3); Platelet Count 287 K/uL (130-400); RDW Coefficient of Variation 16.8 % (11.5-14.5); RDW Standard Deviation 49.9 fL (36.4-46.3); White Blood Count 24.41 K/ul (4.8-10.8)
--- NOTE | 2022-08-23 07:36 | CT Scan Report ---
CT angio chest PE protocol CT DOSE: 837.60 mGy.cm HISTORY: 61 years-old Female with PE. Acute shortness of breath. COVID Positive. TECHNIQUE: Multiple CTA images of the chest were obtained after the intravenous administration of 117 ml Optiray. Coronal and sagittal MIPS were obtained from the axial data set and were submitted for review. All measurements were obtained according to NASCET criteria. A dose lowering technique was u tilized adhering to the principles of ALARA. COMPARISON: Chest radiograph of same day, CTA chest 12/20/2019 FINDINGS: CTA: Mild cardiomegaly with small pericardial effusion. Stable. No thoracic aortic aneurysm. Unremarkable pulmonary artery is suboptimal visualization of the segmental and subsegmental pulmonary arterial bra nches secondary to contrast bolus on the respiratory motion artifact. CT CHEST: No dominant thyroid nodule is seen. No pathologically adenopathy by CT size criteria. Mild dependent segmental bibasilar atelectasis. No pneumothorax, pleural effusion, airspace consolidation or overt p ulmonary edema. The previously noted groundglass nodule within the posterior segment right upper lobe is not visualized. Hepatomegaly with hepatic steatosis. Unremarkable soft tissues. No acute fracture. Degenerative muhammad es of the shoulders and spine with numerous loose bodies within the left greater than right glenohume ral joints. IMPRESSION: 1. Cardiomegaly with unchanged small pericardial effusion. 2. No pulmonary emboli identified. 3. Mild subsegmental bibasilar atelectasis. No airspace consolidation to suggest pneumonia. ACT 112: Negative or not required by law. The above report was generated using voice recognition software. It may contain grammatical, syntax o r spelling errors. Electronically signed by: Braulio Delarosa M.D. 08/23/2022 7:34 AM
[2022-08-23] MEDS: LOSARTAN POTASSIUM 50 MG TAB PO SCH (07:53)
[2022-08-23] MEDS: ASCORBIC ACID 500 MG TAB PO SCH (07:53)
[2022-08-23] MEDS: ASPIRIN 81 MG ECTAB PO SCH (07:53)
[2022-08-23] MEDS: FUROSEMIDE 40 MG TAB PO SCH (07:53)
[2022-08-23] MEDS: guaiFENesin 600 MG TABCR PO SCH ×2 (07:53→21:10)
[2022-08-23] MEDS: FERROUS SULFATE 325 MG TAB PO SCH (07:53)
[2022-08-23] MEDS: MULTIVITAMIN TAB PO SCH (07:53)
[2022-08-23] MEDS: FLUTICASONE PROPIONATE NA SPR 16 GM BTL SCH ×2 (07:53→21:10)
[2022-08-23] MEDS: LORATADINE 10 MG TAB PO SCH (07:53)
[2022-08-23] MEDS: CITALOPRAM 20 MG TAB PO SCH (07:53)
[2022-08-23] MEDS: carvediloL 12.5 MG TAB PO SCH ×2 (07:54→21:10)
[2022-08-23] MEDS: dexAMETHasone 6 MG in SYRINGE 0 ML IV SCH (07:54)
[2022-08-23 08:03] LABS: Troponin I High Sensitivity 26.3 pg/ml (0-14)
[2022-08-23 08:15] LABS: Calcium 8.6 mg/dl (8.5-10.1); Potassium 3.5 mmol/L (3.5-5.1)
--- NOTE | 2022-08-23 08:18 | XRay Report ---
XR chest 1V portable HISTORY: 61 years-old Female post-operative coughing and wheezing acute cough with wheezing COMPARISON: CTA chest 08/22/2022 TECHNIQUE: AP view of the chest FINDINGS: Cardiac silhouette is enlarged. Hilar silhouettes are unchanged. No pneumothorax, pleural effusion, a irspace consolidation or overt pulmonary edema. Bones appear grossly intact. IMPRESSION: Cardiomegaly without acute process. ACT 112: Negative or not required by law. The above report was generated using voice recognition software. It may contain grammatical, syntax o r spelling errors. Electronically signed by: Braulio Delarosa M.D. 08/23/2022 8:16 AM
[2022-08-23 08:40] LABS: BUN Creatinine Ratio 19.7 (10-20); C Reactive Protein 29.27 mg/dl (0-0.5); Creatinine Clr Calc Pharmacy 109.5 ml/min; Est GFR (African American) 97.4 ml/min; Est GFR (Non-African American) 84.1 ml/min
[2022-08-23] MEDS ORDERED: LANTUS PER UNIT CHARGE SQ SCH (09:00)
[2022-08-23] MEDS: INSULIN ASPART PER UNIT SC SCH ×4 (09:09→21:31)
[2022-08-23] MEDS: DOXYCYCLINE HYCLATE 100 MG CAP PO SCH ×2 (09:09→21:10)
[2022-08-23] MEDS: LANTUS PER UNIT CHARGE SQ SCH (09:09)
[2022-08-23] MEDS: ENOXAPARIN INJ 40 MG/0.4 ML SYR SQ SCH ×2 (09:10→21:10)
[2022-08-23 10:11] LABS: A calco-baum cmplx NotReported Not Detected (NotDetected); Bact fragilis Not Reported Not Detected (NotDetected); C auris Not Reported Not Detected (NotDetected); Calbicans Not Reported Not Detected (NotDetected); Candida glabrata Not Reported Not Detected (NotDetected); Candida krusei Not Reported Not Detected (NotDetected); Cneoformans/gatti Not Reported Not Detected (NotDetected); Cparapsilosis Not Reported Not Detected (NotDetected); Ctropicalis Not Reported Not Detected (NotDetected); E cloacae compx Not Reported Not Detected (NotDetected); Efaecalis Not Reported Not Detected (NotDetected); Efaecium Not Reported Not Detected (NotDetected); Enterobacterales Not Reported Not Detected (NotDetected); Escherichia coli Not Reported Not Detected (NotDetected); H influenzae Not Reported Not Detected (NotDetected); K aerogenes Not Reported Not Detected (NotDetected); Koxytoca Not Reported Not Detected (NotDetected); Kpneumoniae grp Not Reported Not Detected (NotDetected); Lmonocyt Not Reported Not Detected (NotDetected); N meningitidis Not Reported Not Detected (NotDetected); P aeruginosa Not Reported Not Detected (NotDetected); Proteus spp Not Reported Not Detected (NotDetected); Salmonella spp Not Reported Not Detected (NotDetected); Smarcescens Not Reported Not Detected (NotDetected); Staph lugdunensis Not Reported Not Detected (NotDetected); Staph spp. Not Reported Not Detected (NotDetected); Staphaureus Not Reported Not Detected (NotDetected); Staphepi Not Reported Not Detected (NotDetected); Stenmaltophilia Not Reported Not Detected (NotDetected); Strep agal(GrpB) Not Reported DETECTED (NotDetected); Strep pneum Not Reported Not Detected (NotDetected); Strep pyog (GrpA) Not Reported Not Detected (NotDetected); Strep spp Not Reported DETECTED (NotDetected); Streptococcus spp DETECTED (NotDetected)
[2022-08-23 10:20] LABS: Streptococcus agalactiae(GrpB) DETECTED (NotDetected)
--- NOTE | 2022-08-23 10:22 | Pharmacy Report ---
Pharmacy Glycemic Short Note 2 - Date of Service August 23, 2022 - Glycemic Short BSG Results (Last 24 hours): 08/22/22 08/22/22 08/23/22 17:01 21: 07:14 Glucose 154 H 189 H POC Glucose 195 H 08/23/22 07:52 Glucose POC Glucose 195 H OUTPATIENT ANTIDIABETIC REGIMEN: * Metformin 1 g PO daily with dinner HbA1c: ordered/pending ASSESSMENT: * DK is a 61 year old female who presented to [facility] ED yesterday with increased shortness of breath over past several days. Found to be tachycardic, tachypneic, and febrile. Positive for COVID-19. * Started on IV dexamethasone 6 mg daily and remdesivir * Pertinent PMH includes morbid obesity, asthma, COPD, T2DM, and hypertension * Elevated fasting BSG this morning at 195 mg/dL, will give increased dose of Lantus this morning in context of this and ongoing IV steroids PLAN FOR INPATIENT GLYCEMIC CONTROL: * Hold outpatient oral diabetes medications * Basal insulin * Lantus 35 units SC daily (~0.2 unit/kg based on actual body weight) * Bolus insulin * NovoLog per scale ACHS or Q6hrs while NPO * Goal Range: Low 110 mg/dL - High 140 mg/dL * Correction Factor: 12 mg/dL/unit * Nutritional / Prandial insulin per carb ratio of 1 unit per 4 grams CHO consumed
--- NOTE | 2022-08-23 10:47 | Electrocardiogram Report ---
Test Reason : Blood Pressure : / mmHG Vent. Rate : 112 BPM Atrial Rate : 112 BPM P-R Int : 168 ms QRS Dur : 088 ms QT Int : 322 ms P-R-T Axes : 040 011 058 degrees QTc Int : 439 ms Poor data quality, interpretation may be adversely affected Sinus tachycardia Otherwise normal ECG When compared with ECG of 15-FEB-2020 07:25, Vent. rate has increased BY 38 BPM Confirmed by Gerardo Johnson ([id number]) on 08/23/2022 10:46:49 AM Referred By: REFERRED SELF Confirmed By:Gerardo Johnson
--- NOTE | 2022-08-23 13:33 | Pulmonary Consultation ---
Date of Consultation August 23, 2022 Assessment & Plan (1) Viral bronchitis: (2) SARS-CoV-2 antibody positive: (3) Obstructive sleep apnea hypopnea, severe: (4) Hypertensive heart disease with chronic diastolic congestive heart failure: Plan Morbidly obese appearing female with a history of diastolic heart failure presenting to the hospital for acute viral bronchitis. Suspect she may have an element of chronic hypoxemia given her morbid obesity and diastolic heart failure. I do not see evidence of bacterial pneumonia on the CT chest. She has atelectasis due to her body habitus. I ordered a flutter valve and incentive spirometer to help promote pulmonary toilet. I recommend weaning down her steroids as quickly as possible and discontinuing antibiotics if her procalcitonin is negative. Care is largely supportive at this time. I have no other specific recommendatio ns. Thank you for the consultation and please call with questions. History of Present Illness Reason for Consultation: COVID-positive test Attending Physician: Randy Millan MD History of Present Illness 61-year-old female with a past medical history of increasing shortness of breath over the past 4 days who presented due to cough and shortness of breath. Her past medical history includes morbid obesity with a BMI of 70, NICKO, depression and anxiety. She had a CT chest on admission which revealed minimal bibasilar atelectasis, but otherwise was clear. She is currently on dexamethasone 6 mg daily, ceftriaxone 2000 mg, Doxycycline 100 mg twice daily, and remdesivir 100 mg daily. Her labs are suggestive of an increased white count likely secondary to demargination from systemic steroids. Her eosinophil count on admission was 0. She had an echo 08/23/2022 which revealed an LVEF of 55 to 60%. Right atrial size normal. Small pericardial effusion. Mild mitral regurgitation. Patient relates that her shortness of breath has improved since hospital admission, she continues to have an occasional cough. Her activity level has been very limited and she has mostly remained in bed. She denies any fevers or chills. I weaned her oxygen down to 1 L and she was able to maintain saturations in the mid 90s. She denies any history of prior tobacco abuse. She denies having to use an inhaler at home. She notes that she is compliant with CPAP at home. Allergies Allergy/AdvReac Type Severity Reaction Status Date / Time morphine AdvReac Intermediate ABD PAIN, Verified 08/22/22 17:50 NAUSEA AND VOMITING Home Medications Medication Instructions Recorded Confirmed Type citalopram 20 mg tablet 20 mg PO QAM 05/02/18 08/22/22 History ergocalciferol (vitamin D2) 1,250 50,000 unit PO DIRECTED 05/02/18 08/22/22 History mcg (50,000 unit) capsule (Vitamin D2) ferrous sulfate 325 mg (65 mg 325 mg PO QAM 05/02/18 08/22/22 History iron) tablet (iron) levothyroxine 125 mcg tablet 250 mcg PO QAM 05/02/18 08/22/22 History (Synthroid) albuterol sulfate 90 mcg/actuation 2 puff inhalation Q4 PRN Wheezing 05/06/18 08/22/22 History aerosol inhaler aspirin 81 mg tablet,delayed 81 mg PO QAM 05/06/18 08/22/22 History release (Adult Low Dose Aspirin) multivitamin 1 tab PO QAM 08/10/18 08/22/22 History ascorbic acid (vitamin C) 250 mg 250 mg PO QAM 02/14/20 08/22/22 History tablet (Vitamin C) carvedilol 12.5 mg tablet 12.5 mg PO BID 02/14/20 08/22/22 History loratadine 10 mg tablet 10 mg PO DAILY 02/14/20 08/22/22 History furosemide 40 mg tablet See Rx Instructions .Route .COMPLEX 08/26/20 08/22/22 History azithromycin 250 mg tablet 250 mg PO DAILY 08/22/22 08/22/22 History fluticasone propionate 50 2 spray intranasal BID 08/22/22 08/22/22 History mcg/actuation nasal spray,suspension losartan 50 mg tablet 50 mg PO QAM 08/22/22 08/22/22 History metformin 500 mg tablet,extended 1,000 mg PO QDD 08/22/22 08/22/22 History release 24 hr prednisone 20 mg tablet 40 mg PO DAILY 08/22/22 08/22/22 History sodium chloride 0.65 % nasal spray 2 spray intranasal DIRECTED PRN 08/22/22 08/22/22 History aerosol (Saline Nasal) NASAL DRYNESS Patient History Medical History (Updated 08/23/22 @ 14:24 by Dago Hardwick MD) Anemia Asthma RARE RES INH USE Cardiac murmur DX MANY YRS AGO COVID-19 Depression DM2 (diabetes mellitus, type 2) Hypertension Hypertrophic cardiomyopathy 'most likely on the basis of hypertensive heart disease' per cardio 07/2018 > FOLLOWS DR. LOCO> [facility] Hypertrophic cardiomyopathy Hypothyroidism Nausea and vomiting after administration of anesthetic agent Obesity Osteoarthritis Rheumatoid arthritis SARS-CoV-2 antibody positive Sleep apnea uses cpap - with oxygen 2L Viral bronchitis Surgical History Difficult airway for intubation NO PROBLEMS RECENTLY (LAST SURGERY/NO PROBLEMS) History of cholecystectomy History of colonoscopy History of dilatation and curettage History of eye surgery STABISMUS REPAIRED LEFT EYE History of repair of rotator cuff left History of tooth extraction all teeth pulled History of total abdominal hysterectomy and bilateral salpingo-oophorectomy History of total knee replacement bilateral Family History Brother Family history of diabetes mellitus Sister Family history of diabetes mellitus Grandfather Family history of diabetes mellitus Grandmother Family history of diabetes mellitus Social History Smoking Status: Never smoker Second Hand Exposure: Yes ( KID); Hx Alcohol Use: No Hx Substance Use: No Preferred Language: Kenyan Communication Ability: Effective Benefits Assistant Required: No Beliefs That Will Affect Care: None marital status: Current Living Situation: Spouse Current Living Situation Comment: son too Other Information That Helps Us Care for You: No Feels Safe at Home: Yes Safety Concerns: Feels Safe At This Time Assistive Devices: Cane, CPAP and Glasses Review of Systems Review of Systems: All systems reviewed & are unremarkable except as noted in HPI & below Physical Exam Physical Exam: Constitutional: Morbidly obese appearing female no apparent distress. Eyes: Pupils are equal round and reactive to light. Conjunctivae are normal. Anicteric sclera. Ears nose, mouth and throat: Deferred. Neck: Trachea is midline. Visual inspection is normal. Respiratory: Clear to auscultation bilaterally. No use of accessory muscles. No significant clubbing noted. Cardiovascular: Regular rate and rhythm. No murmurs. No edema. Gastrointestinal: Normal bowel sounds, soft, nontender and nondistended. No hepatosplenomegaly noted. Musculoskeletal: No cyanosis. Patient is able to move all extremities. Strength is 5 out of 5 in the upper and lower extremities. Skin: No rashes, warm dry and intact. Neurologic: No obvious focal neurological deficits seen. Psychiatric: Alert and oriented x3 with a euthymic affect. Results & Data Results & Data ([facility]) Vital Signs (Past 12 Hours) Vital Signs Temp Pulse Pulse Resp BP Pulse Ox O2 Del Method 08/23/22 11:55 36.8 C 74 18 100/59 L 96 Nasal Cannula 08/23/22 08:00 74 08/23/22 08:00 Nasal Cannula 08/23/22 08:00 36.8 C 77 20 121/73 96 Nasal Cannula 08/23/22 03:24 36.5 C 68 20 116/62 96 BiPAP 08/23/22 02:43 64 25 H 94 08/23/22 01:54 77 08/23/22 01:54 88 O2 Flow Rate FiO2 08/23/22 11:55 4 08/23/22 08:00 08/23/22 08:00 3 08/23/22 08:00 3 08/23/22 03:24 08/23/22 02:43 30 08/23/22 01:54 08/23/22 01:54 PG Care Time/CCT Total # of Minutes Spent Total Time Spent with Patient: Total time spent is greater than 50% in coordination of care (as documented) at patient's floor/unit and/or counseling patient: Coding Level of Care Code INP/OBS CONSULT LVL 3, 45 MIN Diagnoses Viral bronchitis J20.8 SARS-CoV-2 antibody positive R76.8 Obstructive sleep apnea hypopnea, severe G47.33 Hypertensive heart disease with chronic diastolic congestive heart failure I11.0; I50.32
--- NOTE | 2022-08-23 16:00 | Hospitalist Progress Note ---
Date of Service August 23, 2022 Assessment & Plan (1) COVID-19: (2) Hypoxia: (3) Shortness of breath: (4) Hypertension: (5) Asthma: (6) Depression: (7) Hypothyroid: (8) Obesity: (9) Obstructive sleep apnea hypopnea, severe: (10) DM2 (diabetes mellitus, type 2): (11) Hypertrophic cardiomyopathy: Plan 61-year-old presents with tachypnea, tachycardia, leukocytosis WBC 26. Patient positive COVID started on remdesivir and Decadron.Elevated BNP to 211. D-Dimer > 3000. Chest CTA pending. Sepsis in setting of COVID-19: Acute hypoxic respiratory failure Rule out bacteremia CXR: Shows no acute chest disease or evidence of pleural effusion or pneumothorax. DuoNeb in ED; continue 4 times daily and every 2 as needed Required BiPAP overnight, transition to 3 L of oxygen via nasal cannula today Clinically improved overall Blood culture: Gram-positive cocci in chains, PCR showing strep Continue remdesivir plus Decadron Continue incentive spirometry, flutter valve, Mucinex DVT prophylaxis Continue ceftriaxone day #2 for possible strep bacteremia Source unclear Monitor right knee, patient reporting pain Follow-up repeat blood cultures Infectious disease consultation requested Congestive Heart Failure: Hypertrophic cardiomyopathy: -Takes Lostartan; continue -ECHO 12/2019: G2 diastolic dysfunction. EF 61%Mild aortic stenosis -BNP 221 -Appears to be euvolemic Continue usual Lasix Hypertension: -Takes carvedilol and losartan; continue -Troponin 35.5; likely in setting of ischemic demand Increased up to 80, trended down to 26 -ECHO: EF 55 to 60%, moderate concentric LVH, left ventricular systolic function normal Asthma: NICKO: -Takes Singulair, Flovent, albuterol as needed; continue -CPAP at night; continue DM2: -A1C check in AM -Takes Metformin; discontinue while here and place on SSI. -ACHS FSBS -Monitor sugars closely with Decadron Depression: -Takes citalopram; continue Hypothyroidism: -Takes levothyroxine; continue Disposition: PCP Dr. Bryan CODE STATUS: Full code VTE prophylaxis: Heparin SQ Lives at home with family plan of care discussed with patient in detail and at length all questions answered She is understanding, agreeable, comfortable with the plan of care Admission and Anticipated Discharge Date Admission Date: August 22, 2022 Subjective Follow-up for sepsis, COVID-19 infection, bacteremia, etc. Seen resting in bed, on 3 L of oxygen via nasal cannula Sitting up, having breakfast, comfortable, in good spirits States she feels better compared to yesterday Breathing is improving, occasional productive cough No chest pain, palpitations, dizziness Has some mild right knee pain No other symptoms Review of Systems Review of Systems: all noted and negative except for above Physical Exam Physical Exam: General- oriented x 3, not in distress, speaks in sentences with no effort or accessory muscle use Eyes- anicteric Neck- no JVD Lungs- clear breath sounds bilaterally, no rales/wheezes Heart- normal rate, regular rhythm; no murmurs Abdomen- normal bowel sounds, nondistended, soft, nontender Extremities-grade 1-2 lower extremity edema edema, no calf tenderness Neuro- alert, oriented x 3; no gross focal neurologic deficits Skin- warm & dry Results & Data Results & Data ([facility]) Vital Signs (Past 12 Hours) Vital Signs Temp Pulse Pulse Resp BP Pulse Ox O2 Del Method 08/23/22 11:55 36.8 C 74 18 100/59 L 96 Nasal Cannula 08/23/22 08:00 74 08/23/22 08:00 Nasal Cannula 08/23/22 08:00 36.8 C 77 20 121/73 96 Nasal Cannula O2 Flow Rate 08/23/22 11:55 4 08/23/22 08:00 08/23/22 08:00 3 08/23/22 08:00 3 all noted and reviewed including below
[2022-08-23] MEDS: cefTRIAXone SODIUM 2,000 MG in DEXTROSE 5% 50 ML IV SCH (17:34)
[2022-08-23] MEDS: REMDESIVIR 100 MG in SODIUM CHLORIDE 0.9% 230 ML IV SCH (19:18)
[2022-08-23] MEDS: ACETAMINOPHEN 325 MG TAB PO PRN (21:09)
[2022-08-24] MEDS: LEVOTHYROXINE SODIUM 125 MCG TABLET PO SCH (05:58)
[2022-08-24 07:00] LABS: Estimated Average Glucose 137 mg/dl; Hemoglobin A1C 6.4 % (4.5-5.6)
[2022-08-24 07:01] LABS: Hematocrit (blood only) 34.7 % (34.1-44.9); Mean Corpuscular Hemoglobin 25.7 pg (25.0-34.0); Mean Corpuscular Hgb Conc 31.7 g/dL (32.0-36.0); Mean Corpuscular Volume 81.1 fL (80.0-100.0); Mean Platelet Volume 9.7 fL (9.4-12.3); Platelet Count 311 K/uL (130-400); RDW Standard Deviation 50.4 fL (36.4-46.3); Red Blood Count 4.28 M/uL (3.93-5.22); White Blood Count 29.23 K/ul (4.8-10.8)
[2022-08-24 07:12] LABS: Appearance Urine Clear (Clear); Bacteria Urine Automated Negative (Negative); Bilirubin Urine Negative (Negative); Blood Urine 3+ (Negative); Color Urine Yellow; Glucose Urine UA Negative (Negative); Ketones Urine Negative (Negative); Leukocyte Esterase Urine Trace (Negative); Nitrite Urine Negative (Negative); Protein Urine Negative (Negative); Specific Gravity Urine 1.015 (1.000-1.030); Urobilinogen Urine Negative (Negative)
[2022-08-24 07:22] LABS: BUN Creatinine Ratio 30.9 (10-20); Calcium 8.9 mg/dl (8.5-10.1); Creatinine Clr Calc Pharmacy 123.1 ml/min; Est GFR (African American) 108.7 ml/min; Est GFR (Non-African American) 93.7 ml/min; Potassium 3.9 mmol/L (3.5-5.1)
[2022-08-24 07:34] LABS: Basophils # (auto) 0.04 K/uL (0-0.2); Basophils % (auto) 0.1 %; Immature Granulocytes # (auto) 0.26 K/uL (0.00-0.02); Immature Granulocytes % (auto) 0.9 %; Lymphocytes # (auto) 1.53 K/uL (1.2-3.4); Lymphocytes % (auto) 5.2 %; Monocytes # (auto) 1.62 K/uL (0.24-0.82); Monocytes % (auto) 5.5 %; Neutrophils # (auto) 25.78 K/uL (1.4-6.5); Neutrophils % (auto) 88.3 %
[2022-08-24 08:08] LABS: A calco-baum cmplx NotReported Not Detected (NotDetected); Bact fragilis Not Reported Not Detected (NotDetected); C auris Not Reported Not Detected (NotDetected); Calbicans Not Reported Not Detected (NotDetected); Candida glabrata Not Reported Not Detected (NotDetected); Candida krusei Not Reported Not Detected (NotDetected); Cneoformans/gatti Not Reported Not Detected (NotDetected); Cparapsilosis Not Reported Not Detected (NotDetected); Ctropicalis Not Reported Not Detected (NotDetected); E cloacae compx Not Reported Not Detected (NotDetected); Efaecalis Not Reported Not Detected (NotDetected); Efaecium Not Reported Not Detected (NotDetected); Enterobacterales Not Reported Not Detected (NotDetected); Escherichia coli Not Reported Not Detected (NotDetected); H influenzae Not Reported Not Detected (NotDetected); K aerogenes Not Reported Not Detected (NotDetected); Koxytoca Not Reported Not Detected (NotDetected); Kpneumoniae grp Not Reported Not Detected (NotDetected); Lmonocyt Not Reported Not Detected (NotDetected); N meningitidis Not Reported Not Detected (NotDetected); P aeruginosa Not Reported Not Detected (NotDetected); Proteus spp Not Reported Not Detected (NotDetected); Salmonella spp Not Reported Not Detected (NotDetected); Smarcescens Not Reported Not Detected (NotDetected); Staph lugdunensis Not Reported Not Detected (NotDetected); Staph spp. Not Reported Not Detected (NotDetected); Staphaureus Not Reported Not Detected (NotDetected); Staphepi Not Reported Not Detected (NotDetected); Stenmaltophilia Not Reported Not Detected (NotDetected); Strep agal(GrpB) Not Reported Not Detected (NotDetected); Strep pneum Not Reported Not Detected (NotDetected); Strep pyog (GrpA) Not Reported Not Detected (NotDetected); Strep spp Not Reported Not Detected (NotDetected)
[2022-08-24] MEDS: INSULIN ASPART PER UNIT SC SCH ×4 (09:18→20:28)
[2022-08-24] MEDS: LANTUS PER UNIT CHARGE SQ SCH (09:19)
[2022-08-24] MEDS: MULTIVITAMIN TAB PO SCH (09:25)
[2022-08-24] MEDS: ASPIRIN 81 MG ECTAB PO SCH (09:25)
[2022-08-24] MEDS: LORATADINE 10 MG TAB PO SCH (09:25)
[2022-08-24] MEDS: ENOXAPARIN INJ 40 MG/0.4 ML SYR SQ SCH ×2 (09:25→20:49)
[2022-08-24] MEDS: LOSARTAN POTASSIUM 50 MG TAB PO SCH (09:25)
[2022-08-24] MEDS: CITALOPRAM 20 MG TAB PO SCH (09:25)
[2022-08-24] MEDS: FERROUS SULFATE 325 MG TAB PO SCH (09:25)
[2022-08-24] MEDS: guaiFENesin 600 MG TABCR PO SCH ×2 (09:25→20:49)
[2022-08-24] MEDS: DOXYCYCLINE HYCLATE 100 MG CAP PO SCH ×2 (09:25→20:49)
[2022-08-24] MEDS: ASCORBIC ACID 500 MG TAB PO SCH (09:25)
[2022-08-24] MEDS: carvediloL 12.5 MG TAB PO SCH ×2 (09:25→20:48)
[2022-08-24] MEDS: FLUTICASONE PROPIONATE NA SPR 16 GM BTL SCH ×2 (09:26→20:29)
[2022-08-24] MEDS: dexAMETHasone 6 MG in SYRINGE 0 ML IV SCH (09:27)
--- NOTE | 2022-08-24 15:21 | Hospitalist Progress Note ---
Date of Service August 24, 2022 Assessment & Plan (1) COVID-19: (2) Hypoxia: (3) Shortness of breath: (4) Hypertension: (5) Asthma: (6) Depression: (7) Hypothyroid: (8) Obesity: (9) Obstructive sleep apnea hypopnea, severe: (10) DM2 (diabetes mellitus, type 2): (11) Hypertrophic cardiomyopathy: Plan 61-year-old presents with tachypnea, tachycardia, leukocytosis WBC 26. Patient positive COVID started on remdesivir and Decadron.Elevated BNP to 211. D-Dimer > 3000. Chest CTA pending. Sepsis in setting of COVID-19: Acute hypoxic respiratory failure Rule out bacteremia CXR: Shows no acute chest disease or evidence of pleural effusion or pneumothorax. DuoNeb in ED; continue 4 times daily and every 2 as needed Required BiPAP overnight, transition to 3 L of oxygen via nasal cannula Continue remdesivir plus Decadron Continue incentive spirometry, flutter valve, Mucinex Clinically better and will continue current management No shortness of breath at rest and no cough Clinically improved overall Blood culture: Gram-positive cocci in chains, PCR showing strep Continue ceftriaxone day #2 for possible strep bacteremia Likely pulmonary source Doubt any septic arthritis of the right knee Appreciate ID input and recommendation Repeat blood cultures have been taken, if negative will have a total of 14 days of IV antibiotic Right knee pain Has had a fall at home likely has minor trauma Anterior part of the right knee is tender without any redness and/or swelling Clinically no evidence of septic arthritis Will apply diclofenac gel Congestive Heart Failure: Hypertrophic cardiomyopathy: -Takes Lostartan; continue -ECHO 12/2019: G2 diastolic dysfunction. EF 61%Mild aortic stenosis -BNP 221 -Appears to be euvolemic Continue usual Lasix Hypertension: -Takes carvedilol and losartan; continue -Troponin 35.5; likely in setting of ischemic demand Increased up to 80, trended down to 26 -ECHO: EF 55 to 60%, moderate concentric LVH, left ventricular systolic function normal Asthma: NICKO: -Takes Singulair, Flovent, albuterol as needed; continue -CPAP at night; continue DM2: -A1C check in AM -Takes Metformin; discontinue while here and place on SSI. -ACHS FSBS -Monitor sugars closely with Decadron Depression: -Takes citalopram; continue Hypothyroidism: -Takes levothyroxine; continue Disposition: PCP Dr. Bryan CODE STATUS: Full code VTE prophylaxis: Heparin SQ Lives at home with family Admission and Anticipated Discharge Date Admission Date: August 22, 2022 Subjective 08/24/2022 The patient was seen and examined in telemetry unit, in COVID room and in presence of the Her respiratory symptoms are much improved Complaints right anterior knee pain No fever and no chills Review of Systems Review of Systems: All systems reviewed and are unremarkable except as noted below Musculoskeletal: Right knee pain anteriorly Physical Exam Physical Exam: Lying in bed without any acute distress Constitutional: well developed, well nourished, + ill appearing and + morbidly obese Eyes: PERRL, conjunctivae normal, anicteric sclerae ENMT: external ear and nose normal, oropharynx normal Neck: trachea midline, no thyromegaly Respiratory: no respiratory distress Auscultation: + diminished lung sounds Cardiovascular: Rate/Rhythm: regular rate and regular rhythm; not tachycardic Heart Sounds: normal S1 and normal S2; no murmur Extremities: + edema (1+ edema bilaterally) Gastrointestinal (Abdomen): Inspection/Auscultation: + abdomen distended and normal bowel sounds Percussion/Palpation: abdomen soft; abdomen nontender Musculoskeletal: Knee: + joint line tenderness (Tenderness anterior knee joint without redness); no effusion, no skin erythema and no ecchymosis No significant pain with movement of the right knee joint Neurologic: moves all extremities; no focal motor deficits Lymphatic: no cervical or axillary lymphadenopathy Results & Data Results & Data ([facility]) Vital Signs (Past 12 Hours) Vital Signs Temp Pulse Pulse Resp BP Pulse Ox Pulse Ox 08/24/22 12:42 97 08/24/22 11:27 36.5 C 72 18 98/58 L 95 08/24/22 08:00 67 08/24/22 08:00 08/24/22 07:22 36.8 C 70 16 121/62 97 08/24/22 04:20 36.8 C 63 20 103/79 97 08/24/22 04:17 66 08/24/22 03:13 63 24 97 Pulse Ox Pulse Ox O2 Del Method O2 Flow Rate O2 Flow Rate O2 Flow Rate O2 Flow Rate 08/24/22 12:42 98 97 2 2 2 08/24/22 11:27 Nasal Cannula 2 08/24/22 08:00 08/24/22 08:00 Nasal Cannula 2 08/24/22 07:22 Nasal Cannula 2 08/24/22 04:20 CPAP 08/24/22 04:17 08/24/22 03:13 FiO2 08/24/22 12:42 08/24/22 11:27 08/24/22 08:00 08/24/22 08:00 08/24/22 07:22 08/24/22 04:20 08/24/22 04:17 08/24/22 03:13 30 Laboratory Results Short CBC 08/24/22 Range/Units 06:24 WBC 29.23 H (4.8-10.8) K/ul Hgb 11.0 L (12.0-16.0) g/dl Hct 34.7 (34.1-44.9) % Plt Count 311 (130-400) K/uL BMP 08/24/22 06:24 Sodium 136 Potassium 3.9 Chloride 102 Carbon Dioxide 28 BUN 21 Creatinine 0.68 Glucose 147 H Calcium 8.9 Urine 08/24/22 Range/Units 05:50 Urine Color Yellow Urine Appearance Clear (Clear) Urine pH 6.0 (4.5-7.5) Ur Specific [place] 1.015 (1.000-1.030) Urine Protein Negative (Negative) Urine Glucose (UA) Negative (Negative) Medications Administered Current Inpatient Medications Acetaminophen (Acetaminophen 325 Mg Tab) 650 mg PO Q4H PRN PRN Reason: Pain or Fever Stop: 09/21/22 18:29 Last Admin: 08/23/22 21:09 Dose: 650 mg Al Hydrox/Mg Hydrox/Simethicone (Aluminum/Magnesium Susp 30 Ml Udc) 15 ml PO Q4H PRN PRN Reason: Dyspepsia Stop: 09/21/22 18:29 Ascorbic Acid (Ascorbic Acid 500 Mg Tab) 250 mg PO QAM [facility] Stop: 09/22/22 08:59 Last Admin: 08/24/22 09:25 Dose: 250 mg Aspirin (Aspirin 81 Mg Ectab) [facility] [place] [place] Stop: 09/22/22 08:59 Last Admin: 08/24/22 09:25 Dose: 81 mg Carvedilol (Carvedilol 12.5 Mg Tab) 12.5 mg PO BID [facility] Stop: 09/21/22 20:59 Last Admin: 08/24/22 09:25 Dose: 12.5 mg Citalopram Hydrobromide (Citalopram 20 Mg Tab) 20 mg PO QAM [facility] Stop: 09/22/22 08:59 Last Admin: 08/24/22 09:25 Dose: 20 mg Dextrose (Dextrose 50% 50 Ml Syringe) 25 - 50 ml IV UD PRN; Protocol PRN Reason: Hypoglycemia Protocol Stop: 09/21/22 18:56 Diclofenac Sodium (Diclofenac Sod 1% Gel 100 Gm Tube) 2 gm EXT TID [facility]; Samantha col Stop: 09/23/22 20:59 Doxycycline Hyclate (Doxycycline Hyclate 100 Mg Cap) 100 mg PO BID [facility] Stop: 08/30/22 08:59 Last Admin: 08/24/22 09:25 Dose: 100 mg Enoxaparin Sodium (Enoxaparin Inj 40 Mg/0.4 Ml Syr) 40 mg SQ Q12H [facility] Stop: 09/21/22 21:59 Last Admin: 08/24/22 09:25 Dose: 40 mg Ergocalciferol (Ergocalciferol 50,000 Units 1250 Mcg Cap) 50,000 units PO Q7D [facility] Stop: 09/26/22 08:59 Ergocalciferol (Ergocalciferol 50,000 Units 1250 Mcg Cap) 50,000 units PO Q14D [facility] Stop: 09/26/22 08:59 Ferrous Sulfate (Ferrous Sulfate 325 Mg Tab) 325 mg PO QAM [facility] Stop: 09/22/22 08:59 Last Admin: 08/24/22 09:25 Dose: 325 mg Fluticasone Propionate (Fluticasone Propionate Na Spr 16 Gm Btl) 2 sprays NA BID [facility] Stop: 09/21/22 20:59 Last Admin: 08/24/22 09:26 Dose: 2 sprays Furosemide (Furosemide 40 Mg Tab) 40 mg PO SuTuThSa@0900 [facility] Stop: 09/22/22 08:59 Last Admin: 08/23/22 07:53 Dose: 40 mg Glucagon (Glucagon For Inj 1 Mg Vial) 1 mg SQ UD PRN; Protocol PRN Reason: Hypoglycemia Protocol Stop: 09/21/22 18:56 Glucose (Glucose 40% Gel 15 Gm Tube) 15 - 30 gm PO UD PRN; Protocol PRN Reason: Hypoglycemia Protocol Stop: 09/21/22 18:56 Glucose (Glucose 10 Tab/Tube) 4 - 8 tab PO UD PRN; Protocol PRN Reason: Hypoglycemia Treatment Stop: 09/21/22 18:56 Guaifenesin (Guaifenesin 600 Mg Tabcr) 1,200 mg PO Q12 [facility] Stop: 09/22/22 08:59 Last Admin: 08/24/22 09:25 Dose: 1,200 mg Remdesivir 100 mg/ Sodium (Chloride) 250 mls @ 250 mls/hr IV Q24H [facility] Stop: 08/26/22 20:59 Last Infusion: 08/23/22 22:22 Dose: Infused Dexamethasone 6 mg/ Syringe 1.5 mls @ 1 mls/min IV DAILY [facility] Stop: 09/02/22 08:59 Last Admin: 08/24/22 09:27 Dose: 1 mls/min Ceftriaxone Sodium 2,000 mg/ (Dextrose) 70 mls @ 100 mls/hr IV Q24H [facility]; Protocol Stop: 09/06/22 16:59 Last Infusion: 08/23/22 18:34 Dose: Infused Insulin Aspart (Insulin Aspart Per Unit) 0 units SC ACHS [facility] Stop: 09/21/22 20:59 Last Admin: 08/24/22 12:49 Dose: 14 units Insulin Glargine (Lantus Per Unit Charge) 35 units SQ DAILY [facility] Stop: 09/22/22 08:59 Last Admin: 08/24/22 09:19 Dose: 35 units Levothyroxine Sodium (Levothyroxine Sodium 125 Mcg Tablet) 250 mcg PO DAILYBB [facility] Stop: 09/22/22 06:29 Last Admin: 08/24/22 05:58 Dose: 250 mcg Loratadine (Loratadine 10 Mg Tab) 10 mg PO DAILY [facility] Stop: 09/22/22 08:59 Last Admin: 08/24/22 09:25 Dose: 10 mg Losartan Potassium (Losartan Potassium 50 Mg Tab) 50 mg PO QAM [facility] Stop: 09/22/22 08:59 Last Admin: 08/24/22 09:25 Dose: 50 mg Magnesium Hydroxide (Magnesium Hydroxide Susp 30 Ml Udc) 30 ml PO Q12H PRN PRN Reason: Constipation Stop: 09/21/22 18:29 Miscellaneous (Carbohydrates For Hypoglycemia ) 15 - 30 gm PO UD PRN PRN Reason: Hypoglycemia Protocol Stop: 09/21/22 18:56 Miscellaneous Information (Pharmacy Glycemic Mgmt Consult) 1 each N/A UD PRN PRN Reason: Consult Stop: 09/21/22 18:56 Multivitamins (Multivitamin Tab) 1 tab PO QAM [facility] Stop: 09/22/22 08:59 Last Admin: 08/24/22 09:25 Dose: 1 tab Ondansetron HCl (Ondansetron Inj 2 Mg/Ml 2 Ml Vial) 4 mg IV Q6H PRN PRN Reason: Nausea Stop: 09/21/22 18:29 Polyethylene Glycol (Polyethylene (Miralax) 17 Gm Pack) 17 gm PO DAILY PRN PRN Reason: Constipation Stop: 09/21/22 18:29 Sodium Chloride (Sodium Chloride 0.65% Na Soln 45 Ml ([place])) 2 sprays NA PRN PRN PRN Reason: NASAL DRYNESS Stop: 09/21/22 19:07
[2022-08-24] MEDS: cefTRIAXone SODIUM 2,000 MG in DEXTROSE 5% 50 ML IV SCH (17:35)
[2022-08-24] MEDS: DICLOFENAC SOD 1% GEL 100 GM TUBE EXT SCH (20:28)
[2022-08-24] MEDS: REMDESIVIR 100 MG in SODIUM CHLORIDE 0.9% 230 ML IV SCH (20:50)
[2022-08-25] MEDS: LEVOTHYROXINE SODIUM 125 MCG TABLET PO SCH (06:41)
[2022-08-25 08:10] LABS: Basophils # (auto) 0.03 K/uL (0-0.2); Basophils % (auto) 0.2 %; Hematocrit (blood only) 32.9 % (34.1-44.9); Hemoglobin 10.4 g/dl (12.0-16.0); Immature Granulocytes # (auto) 0.11 K/uL (0.00-0.02); Immature Granulocytes % (auto) 0.6 %; Lymphocytes # (auto) 2.25 K/uL (1.2-3.4); Lymphocytes % (auto) 12.7 %; Mean Corpuscular Hgb Conc 31.6 g/dL (32.0-36.0); Mean Corpuscular Volume 82.3 fL (80.0-100.0); Monocytes # (auto) 1.13 K/uL (0.24-0.82); Monocytes % (auto) 6.4 %; Neutrophils # (auto) 14.21 K/uL (1.4-6.5); Neutrophils % (auto) 80.1 %; Platelet Count 312 K/uL (130-400); RDW Coefficient of Variation 16.7 % (11.5-14.5); RDW Standard Deviation 49.9 fL (36.4-46.3); White Blood Count 17.73 K/ul (4.8-10.8)
[2022-08-25] MEDS: LANTUS PER UNIT CHARGE SQ SCH (08:17)
[2022-08-25] MEDS: INSULIN ASPART PER UNIT SC SCH ×4 (08:17→21:08)
[2022-08-25 08:31] LABS: Calcium 8.6 mg/dl (8.5-10.1)
[2022-08-25 08:36] LABS: BUN Creatinine Ratio 33.8 (10-20); Creatinine Clr Calc Pharmacy 122.5 ml/min; Est GFR (African American) 108.7 ml/min; Est GFR (Non-African American) 93.7 ml/min
[2022-08-25] MEDS: dexAMETHasone 6 MG in SYRINGE 0 ML IV SCH (08:45)
[2022-08-25] MEDS: ENOXAPARIN INJ 40 MG/0.4 ML SYR SQ SCH ×2 (08:45→21:18)
[2022-08-25] MEDS: MULTIVITAMIN TAB PO SCH (08:46)
[2022-08-25] MEDS: LORATADINE 10 MG TAB PO SCH (08:46)
[2022-08-25] MEDS: FERROUS SULFATE 325 MG TAB PO SCH (08:46)
[2022-08-25] MEDS: LOSARTAN POTASSIUM 50 MG TAB PO SCH (08:46)
[2022-08-25] MEDS: CITALOPRAM 20 MG TAB PO SCH (08:46)
[2022-08-25] MEDS: ASPIRIN 81 MG ECTAB PO SCH (08:46)
[2022-08-25] MEDS: DOXYCYCLINE HYCLATE 100 MG CAP PO SCH ×2 (08:46→21:19)
[2022-08-25] MEDS: ASCORBIC ACID 500 MG TAB PO SCH (08:46)
[2022-08-25] MEDS: carvediloL 12.5 MG TAB PO SCH ×2 (08:46→21:19)
[2022-08-25] MEDS: FUROSEMIDE 40 MG TAB PO SCH (08:46)
[2022-08-25] MEDS: guaiFENesin 600 MG TABCR PO SCH ×2 (08:46→21:17)
[2022-08-25] MEDS: DICLOFENAC SOD 1% GEL 100 GM TUBE EXT SCH ×3 (08:47→21:17)
[2022-08-25] MEDS: FLUTICASONE PROPIONATE NA SPR 16 GM BTL SCH ×2 (08:47→21:18)
--- NOTE | 2022-08-25 12:27 | Hospitalist Progress Note ---
Date of Service August 25, 2022 Assessment & Plan (1) COVID-19: (2) Hypoxia: (3) Shortness of breath: (4) Hypertension: (5) Asthma: (6) Depression: (7) Hypothyroid: (8) Obesity: (9) Obstructive sleep apnea hypopnea, severe: (10) DM2 (diabetes mellitus, type 2): (11) Hypertrophic cardiomyopathy: Plan 61-year-old presents with tachypnea, tachycardia, leukocytosis WBC 26. Patient positive COVID started on remdesivir and Decadron.Elevated BNP to 211. D-Dimer > 3000. Chest CTA pending. Sepsis in setting of COVID-19: Acute hypoxic respiratory failure Rule out bacteremia CXR: Shows no acute chest disease or evidence of pleural effusion or pneumothorax. DuoNeb in ED; continue 4 times daily and every 2 as needed Required BiPAP overnight, transition to 3 L of oxygen via nasal cannula Continue remdesivir plus Decadron Continue incentive spirometry, flutter valve, Mucinex Clinically better and will continue current management No shortness of breath at rest and no cough No respiratory symptoms at rest and has been saturating normally on room air Appreciate PT and OT evaluation and recommendation for rehab Blood culture: Gram-positive cocci in chains, PCR showing strep Continue ceftriaxone day #2 for possible strep bacteremia Likely pulmonary source Doubt any septic arthritis of the right knee Appreciate ID input and recommendation Repeat blood cultures have been taken, if negative will have a total of 14 days of IV antibiotic Repeat blood culture negative Will have ultrasound-guided line for a total of 14 days course of IV antibiotic as recommended Right knee pain Has had a fall at home likely has minor trauma Anterior part of the right knee is tender without any redness and/or swelling Clinically no evidence of septic arthritis Will apply diclofenac gel Right knee pain and tenderness are improved Congestive Heart Failure: Hypertrophic cardiomyopathy: -Takes Lostartan; continue -ECHO 12/2019: G2 diastolic dysfunction. EF 61%Mild aortic stenosis -BNP 221 -Appears to be euvolemic Continue usual Lasix No signs and or symptoms of volume overload Hypertension: -Takes carvedilol and losartan; continue -Troponin 35.5; likely in setting of ischemic demand Increased up to 80, trended down to 26 -ECHO: EF 55 to 60%, moderate concentric LVH, left ventricular systolic function normal Asthma: NICKO: -Takes Singulair, Flovent, albuterol as needed; continue -CPAP at night; continue DM2: -A1C check in AM -Takes Metformin; discontinue while here and place on SSI. -ACHS FSBS -Monitor sugars closely with Decadron Depression: -Takes citalopram; continue Hypothyroidism: -Takes levothyroxine; continue Disposition: PCP Dr. Bryan CODE STATUS: Full code VTE prophylaxis: Heparin SQ Lives at home with family Recommended rehab Admission and Anticipated Discharge Date Admission Date: August 22, 2022 Subjective Line08/24/2022 The patient was seen and examined in telemetry unit, in COVID room and in presence of the Her respiratory symptoms are much improved Complaints right anterior knee pain No fever and no chills 08/25/2022 The patient was seen and examined in telemetry unit and in the COVID room She has pain in free of any symptoms at rest Has been saturating normally on room air Right knee pain is much better Review of Systems Review of Systems: All systems reviewed and are unremarkable except as noted below Musculoskeletal: Right knee pain anteriorly Physical Exam Physical Exam: Lying in bed without any acute distress Constitutional: well developed, well nourished, + ill appearing and + morbidly obese Eyes: PERRL, conjunctivae normal, anicteric sclerae ENMT: external ear and nose normal, oropharynx normal Neck: trachea midline, no thyromegaly Respiratory: no respiratory distress Auscultation: + diminished lung sounds Cardiovascular: Rate/Rhythm: regular rate and regular rhythm; not tachycardic Heart Sounds: normal S1 and normal S2; no murmur Extremities: + edema (1+ edema bilaterally) Gastrointestinal (Abdomen): Inspection/Auscultation: + abdomen distended and normal bowel sounds Percussion/Palpation: abdomen soft; abdomen nontender Musculoskeletal: Knee: + joint line tenderness (Tenderness anterior knee joint without redness); no effusion, no skin erythema and no ecchymosis Neurologic: moves all extremities; no focal motor deficits Psychiatric: A+Ox3, euthymic affect Lymphatic: no cervical or axillary lymphadenopathy Results & Data Results & Data ([facility]) Vital Signs (Past 12 Hours) Vital Signs Temp Pulse Pulse Resp BP Pulse Ox O2 Del Method 08/25/22 11:48 36.7 C 63 22 124/73 96 Room Air 08/25/22 09:19 Nasal Cannula, CPAP 08/25/22 09:00 65 08/25/22 08:21 36.6 C 67 18 116/72 95 Room Air 08/25/22 03:58 36.4 C L 65 22 164/78 H 99 Nasal CPAP 08/25/22 02:25 60 20 96 O2 Flow Rate FiO2 08/25/22 11:48 08/25/22 09:19 2 08/25/22 09:00 08/25/22 08:21 08/25/22 03:58 08/25/22 02:25 30 Laboratory Results Short CBC 08/25/22 Range/Units 07:39 WBC 17.73 H (4.8-10.8) K/ul Hgb 10.4 L (12.0-16.0) g/dl Hct 32.9 L (34.1-44.9) % Plt Count 312 (130-400) K/uL BMP 08/25/22 07:39 Sodium 137 Potassium 4.0 Chloride 104 Carbon Dioxide 29 BUN 23 Creatinine 0.68 Glucose 108 H Calcium 8.6 Medications Administered Current Inpatient Medications Acetaminophen (Acetaminophen 325 Mg Tab) 650 mg PO Q4H PRN PRN Reason: Pain or Fever Stop: 09/21/22 18:29 Last Admin: 08/23/22 21:09 Dose: 650 mg Al Hydrox/Mg Hydrox/Simethicone (Aluminum/Magnesium Susp 30 Ml Udc) 15 ml PO Q4H PRN PRN Reason: Dyspepsia Stop: 09/21/22 18:29 Ascorbic Acid (Ascorbic Acid 500 Mg Tab) [facility] [place]: 09/22/22 08:59 Last Admin: 08/25/22 08:46 Dose: 250 mg Aspirin (Aspirin 81 Mg Ectab) 81 mg PO QAM [facility] Stop: 09/22/22 08:59 Last Admin: 08/25/22 08:46 Dose: 81 mg Carvedilol (Carvedilol 12.5 Mg Tab) 12.5 mg PO BID [facility] Stop: 09/21/22 20:59 Last Admin: 08/25/22 08:46 Dose: 12.5 mg Citalopram Hydrobromide (Citalopram 20 Mg Tab) 20 mg [facility] [place]: 09/22/22 08:59 Last Admin: 08/25/22 08:46 Dose: 20 mg Dextrose (Dextrose 50% 50 Ml Syringe) 25 - 50 ml IV UD PRN; Protocol PRN Reason: Hypoglycemia Protocol Stop: 09/21/22 18:56 Diclofenac Sodium (Diclofenac Sod 1% Gel 100 Gm Tube) 2 gm EXT TID [facility]; Protocol Stop: 09/23/22 20:59 Last Admin: 08/25/22 08:47 Dose: 2 gm Doxycycline Hyclate (Doxycycline Hyclate 100 Mg Cap) 100 mg PO BID [facility] Stop: 08/30/22 08:59 Last Admin: 08/25/22 08:46 Dose: 100 mg Enoxaparin Sodium (Enoxaparin Inj 40 Mg/0.4 Ml Syr) 40 mg SQ Q12H [facility] Stop: 09/21/22 21:59 Last Admin: 08/25/22 08:45 Dose: 40 mg Ergocalciferol (Ergocalciferol 50,000 Units 1250 Mcg Cap) 50,000 units PO Q7D [facility] Stop: 09/26/22 08:59 Ergocalciferol (Ergocalciferol 50,000 Units 1250 Mcg Cap) 50,000 units PO Q14D [facility] Stop: 09/26/22 08:59 Ferrous Sulfate (Ferrous Sulfate 325 Mg Tab) 325 mg PO QAM [facility] Stop: 09/22/22 08:59 Last Admin: 08/25/22 08:46 Dose: 325 mg Fluticasone Propionate (Fluticasone Propionate Na Spr 16 Gm Btl) 2 sprays NA BID [facility] Stop: 09/21/22 20:59 Last Admin: 08/25/22 08:47 Dose: Not Given Furosemide (Furosemide 40 Mg Tab) 40 mg PO SuTuThSa@0900 [facility] Stop: 09/22/22 08:59 Last Admin: 08/25/22 08:46 Dose: 40 mg Glucagon (Glucagon For Inj 1 Mg Vial) 1 mg SQ UD PRN; Protocol PRN Reason: Hypoglycemia Protocol Stop: 09/21/22 18:56 Glucose (Glucose 40% Gel 15 Gm Tube) 15 - 30 gm PO UD PRN; Protocol PRN Reason: Hypoglycemia Protocol Stop: 09/21/22 18:56 Glucose (Glucose 10 Tab/Tube) 4 - 8 tab PO UD PRN; Protocol PRN Reason: Hypoglycemia Treatment Stop: 09/21/22 18:56 Guaifenesin (Guaifenesin 600 Mg Tabcr) 1,200 mg PO Q12 [facility] Stop: 09/22/22 08:59 Last Admin: 08/25/22 08:46 Dose: 1,200 mg Remdesivir 100 mg/ Sodium (Chloride) 250 mls @ 250 mls/hr IV Q24H [facility] Stop: 08/26/22 20:59 Last Infusion: 08/24/22 21:50 Dose: Infused Dexamethasone 6 mg/ Syringe 1.5 mls @ 1 mls/min IV DAILY [facility] Stop: 09/02/22 08:59 Last Admin: 08/25/22 08:45 Dose: 1 mls/min Ceftriaxone Sodium 2,000 mg/ (Dextrose) 70 mls @ 100 mls/hr IV Q24H [facility]; Protocol Stop: 09/06/22 16:59 Last Infusion: 08/24/22 19:00 Dose: Infused Insulin Aspart (Insulin Aspart Per Unit) 0 units SC ACHS [facility] Stop: 09/21/22 20:59 Last Admin: 08/25/22 12:10 Dose: 7 units Insulin Glargine (Lantus Per Unit Charge) 35 units SQ DAILY [facility] Stop: 09/22/22 08:59 Last Admin: 08/25/22 08:17 Dose: 35 units Levothyroxine Sodium (Levothyroxine Sodium 125 Mcg Tablet) 250 mcg PO DAILYBB [facility] Stop: 09/22/22 06:29 Last Admin: 08/25/22 06:41 Dose: 250 mcg Loratadine (Loratadine 10 Mg Tab) 10 mg PO DAILY [facility] Stop: 09/22/22 08:59 Last Admin: 08/25/22 08:46 Dose: 10 mg Losartan Potassium (Losartan Potassium 50 Mg Tab) 50 mg PO QAM [facility] Stop: 09/22/22 08:59 Last Admin: 08/25/22 08:46 Dose: 50 mg Magnesium Hydroxide (Magnesium Hydroxide Susp 30 Ml Udc) 30 ml PO Q12H PRN PRN Reason: Constipation Stop: 09/21/22 18:29 Miscellaneous (Carbohydrates For Hypoglycemia ) 15 - 30 gm PO UD PRN PRN Reason: Hypoglycemia Protocol Stop: 09/21/22 18:56 Miscellaneous Information (Pharmacy Glycemic Mgmt Consult) 1 each N/A UD PRN PRN Reason: Consult Stop: 09/21/22 18:56 Multivitamins (Multivitamin Tab) 1 tab PO QAM [facility] Stop: 02/21/23 08:59 Last Admin: 08/25/22 08:46 Dose: 1 tab Ondansetron HCl (Ondansetron Inj 2 Mg/Ml 2 Ml Vial) 4 mg IV Q6H PRN PRN Reason: Nausea Stop: 09/21/22 18:29 Polyethylene Glycol (Polyethylene (Miralax) 17 Gm Pack) 17 gm PO DAILY PRN PRN Reason: Constipation Stop: 09/21/22 18:29 Sodium Chloride (Sodium Chloride 0.65% Na Soln 45 Ml ([place])) 2 sprays NA PRN PRN PRN Reason: NASAL DRYNESS Stop: 09/21/22 19:07
[2022-08-25] MEDS: cefTRIAXone SODIUM 2,000 MG in DEXTROSE 5% 50 ML IV SCH (17:01)
[2022-08-25] MEDS: REMDESIVIR 100 MG in SODIUM CHLORIDE 0.9% 230 ML IV SCH (21:20)
[2022-08-26] MEDS: LEVOTHYROXINE SODIUM 125 MCG TABLET PO SCH (06:40)
[2022-08-26 07:09] LABS: Basophils # (auto) 0.03 K/uL (0-0.2); Basophils % (auto) 0.2 %; Eosinophils # (auto) 0.03 K/uL (0-0.50); Eosinophils % (auto) 0.2 %; Hematocrit (blood only) 33.2 % (34.1-44.9); Hemoglobin 10.4 g/dl (12.0-16.0); Immature Granulocytes # (auto) 0.19 K/uL (0.00-0.02); Immature Granulocytes % (auto) 1.2 %; Lymphocytes # (auto) 2.66 K/uL (1.2-3.4); Lymphocytes % (auto) 16.8 %; Mean Corpuscular Hemoglobin 25.7 pg (25.0-34.0); Mean Corpuscular Hgb Conc 31.3 g/dL (32.0-36.0); Mean Corpuscular Volume 82.2 fL (80.0-100.0); Mean Platelet Volume 9.9 fL (9.4-12.3); Monocytes # (auto) 1.38 K/uL (0.24-0.82); Monocytes % (auto) 8.7 %; Neutrophils % (auto) 72.9 %; Platelet Count 294 K/uL (130-400); RDW Coefficient of Variation 16.7 % (11.5-14.5); RDW Standard Deviation 50.1 fL (36.4-46.3); Red Blood Count 4.04 M/uL (3.93-5.22); White Blood Count 15.79 K/ul (4.8-10.8)
[2022-08-26 07:30] LABS: BUN Creatinine Ratio 35.5 (10-20); Calcium 8.5 mg/dl (8.5-10.1); Creatinine Clr Calc Pharmacy 134.4 ml/min; Est GFR (Non-African American) 96.6 ml/min; Potassium 4.1 mmol/L (3.5-5.1)
--- NOTE | 2022-08-26 08:10 | Pharmacy Report ---
Pharmacy Glycemic Short Note 2 - Date of Service August 26, 2022 - Glycemic Short BSG Results (Last 24 hours): 08/25/22 08/25/22 08/25/22 07:39 11:36 17:00 Glucose 108 H POC Glucose 132 H 162 H 08/25/22 08/26/22 08/26/22 19:45 06:48 07:54 Glucose 90 POC Glucose 140 H 89 OUTPATIENT ANTIDIABETIC REGIMEN: * Metformin 1 g PO daily with dinner HbA1c: 6.4% 08/23/22 ASSESSMENT: 08/26/22 * Blood sugars well controlled over past 3 days, fasting 90mg/dl today, will decrease basal to prevent hypoglycemia. * No further changes needed at this time, patient remains on Dexamethasone 6mg IV daily. 08/23/22 * DK is a 61 year old female who presented to [facility] ED yesterday with increased shortness of breath over past several days. Found to be tachycardic, tachypneic, and febrile. Positive for COVID-19. * Started on IV dexamethasone 6 mg daily and remdesivir * Pertinent PMH includes morbid obesity, asthma, COPD, T2DM, and hypertension * Elevated fasting BSG this morning at 195 mg/dL, will give increased dose of Lantus this morning in context of this and ongoing IV steroids PLAN FOR INPATIENT GLYCEMIC CONTROL: * Hold outpatient oral diabetes medications * Basal insulin * Lantus 30 units SC daily * Bolus insulin * NovoLog per scale ACHS or Q6hrs while NPO * Goal Range: Low 110 mg/dL - High 140 mg/dL * Correction Factor: 12 mg/dL/unit * Nutritional / Prandial insulin per carb ratio of 1 unit per 4 grams CHO consumed
[2022-08-26] MEDS ORDERED: LANTUS PER UNIT CHARGE SQ SCH (09:00)
[2022-08-26] MEDS: LORATADINE 10 MG TAB PO SCH (09:50)
[2022-08-26] MEDS: carvediloL 12.5 MG TAB PO SCH ×2 (09:50→20:12)
[2022-08-26] MEDS: ASCORBIC ACID 500 MG TAB PO SCH (09:50)
[2022-08-26] MEDS: ASPIRIN 81 MG ECTAB PO SCH (09:50)
[2022-08-26] MEDS: FERROUS SULFATE 325 MG TAB PO SCH (09:50)
[2022-08-26] MEDS: MULTIVITAMIN TAB PO SCH (09:50)
[2022-08-26] MEDS: CITALOPRAM 20 MG TAB PO SCH (09:50)
[2022-08-26] MEDS: LOSARTAN POTASSIUM 50 MG TAB PO SCH (09:50)
[2022-08-26] MEDS: DICLOFENAC SOD 1% GEL 100 GM TUBE EXT SCH ×3 (11:05→20:10)
[2022-08-26] MEDS: FLUTICASONE PROPIONATE NA SPR 16 GM BTL SCH ×2 (11:06→20:13)
[2022-08-26] MEDS: guaiFENesin 600 MG TABCR PO SCH ×2 (11:06→20:15)
[2022-08-26] MEDS: ENOXAPARIN INJ 40 MG/0.4 ML SYR SQ SCH ×2 (11:10→20:16)
[2022-08-26] MEDS: INSULIN ASPART PER UNIT SC SCH ×4 (11:10→20:28)
[2022-08-26] MEDS: dexAMETHasone 6 MG in SYRINGE 0 ML IV SCH (11:10)
[2022-08-26] MEDS: DOXYCYCLINE HYCLATE 100 MG CAP PO SCH ×2 (11:10→20:13)
--- NOTE | 2022-08-26 15:06 | Hospitalist Progress Note ---
Date of Service August 26, 2022 Assessment & Plan (1) COVID-19: (2) Hypoxia: (3) Shortness of breath: (4) Hypertension: (5) Asthma: (6) Depression: (7) Hypothyroid: (8) Obesity: (9) Obstructive sleep apnea hypopnea, severe: (10) DM2 (diabetes mellitus, type 2): (11) Hypertrophic cardiomyopathy: Plan 61-year-old presents with tachypnea, tachycardia, leukocytosis WBC 26. Patient positive COVID started on remdesivir and Decadron.Elevated BNP to 211. D-Dimer > 3000. Chest CTA pending. Sepsis in setting of COVID-19: Acute hypoxic respiratory failure Rule out bacteremia CXR: Shows no acute chest disease or evidence of pleural effusion or pneumothorax. DuoNeb in ED; continue 4 times daily and every 2 as needed Required BiPAP overnight, transition to 3 L of oxygen via nasal cannula Continue remdesivir plus Decadron Continue incentive spirometry, flutter valve, Mucinex Clinically better and will continue current management No shortness of breath at rest and no cough No respiratory symptoms at rest and has been saturating normally on room air Appreciate PT and OT evaluation and recommendation for rehab Blood culture: Gram-positive cocci in chains, PCR showing strep Continue ceftriaxone day #2 for possible strep bacteremia Likely pulmonary source Doubt any septic arthritis of the right knee Appreciate ID input and recommendation Repeat blood cultures have been taken, if negative will have a total of 14 days of IV antibiotic Repeat blood culture negative Will have ultrasound-guided line for a total of 14 days course of IV antibiotic as recommended Right knee pain Has had a fall at home likely has minor trauma Anterior part of the right knee is tender without any redness and/or swelling Clinically no evidence of septic arthritis Will apply diclofenac gel Right knee pain and tenderness are improved Congestive Heart Failure: Hypertrophic cardiomyopathy: -Takes Lostartan; continue -ECHO 12/2019: G2 diastolic dysfunction. EF 61%Mild aortic stenosis -BNP 221 -Appears to be euvolemic Continue usual Lasix No signs and or symptoms of volume overload Hypertension: -Takes carvedilol and losartan; continue -Troponin 35.5; likely in setting of ischemic demand Increased up to 80, trended down to 26 -ECHO: EF 55 to 60%, moderate concentric LVH, left ventricular systolic function normal Asthma: NICKO: -Takes Singulair, Flovent, albuterol as needed; continue -CPAP at night; continue DM2: -A1C check in AM -Takes Metformin; discontinue while here and place on SSI. -ACHS FSBS -Monitor sugars closely with Decadron Depression: -Takes citalopram; continue Hypothyroidism: -Takes levothyroxine; continue Disposition: PCP Dr. Bryan CODE STATUS: Full code VTE prophylaxis: Heparin SQ Lives at home with family Recommended rehab Admission and Anticipated Discharge Date Admission Date: August 22, 2022 Subjective Pt was seen and examined for follow up of COVID 19 and PNA Lying in bed with no acute distress Saturated well on RA. Denies any chest pain, palpitation, dizziness and SOB Review of Systems Review of Systems: All systems reviewed & are unremarkable except as noted in Subjective Physical Exam Physical Exam: General- No acute distress Head- atraumatic Eyes- PERRL, EOMI, ENT- oropharynx clear Neck- supple, no JVD Lungs- clear to auscultation Heart- regular rhythm; no murmur Abdomen- normal bowel sounds, soft, nontender Extremities- no calf tenderness Neuro- alert, oriented x 3; PERRL, EOMI; no facial palsy; no dysarthria Skin- warm & dry Results & Data Results & Data ([facility]) Vital Signs (Past 12 Hours) Vital Signs Temp Pulse Pulse Resp BP Pulse Ox O2 Del Method 08/26/22 13:49 68 08/26/22 09:50 Room Air 08/26/22 05:44 60 08/26/22 11:26 36.9 C 85 18 132/76 96 Room Air
[2022-08-26] MEDS: ACETAMINOPHEN 325 MG TAB PO PRN (16:00)
[2022-08-26] MEDS: cefTRIAXone SODIUM 2,000 MG in DEXTROSE 5% 50 ML IV SCH (17:54)
[2022-08-26] MEDS: REMDESIVIR 100 MG in SODIUM CHLORIDE 0.9% 230 ML IV SCH (20:21)
[2022-08-27] MEDS: LEVOTHYROXINE SODIUM 125 MCG TABLET PO SCH (05:21)
[2022-08-27 08:50] LABS: BUN Creatinine Ratio 33.3 (10-20); Calcium 9.1 mg/dl (8.5-10.1); Creatinine Clr Calc Pharmacy 146.6 ml/min; Est GFR (African American) 115.2 ml/min; Est GFR (Non-African American) 99.4 ml/min; Potassium 4.4 mmol/L (3.5-5.1)
[2022-08-27] MEDS ORDERED: LANTUS PER UNIT CHARGE SQ SCH (09:00)
[2022-08-27] MEDS ORDERED: ERGOCALCIFEROL 50,000 UNITS 1250 MCG CAP PO SCH ×2 (09:00)
[2022-08-27] MEDS: INSULIN ASPART PER UNIT SC SCH ×2 (09:26→12:48)
[2022-08-27 09:29] LABS: Basophils # (auto) 0.04 K/uL (0-0.2); Basophils % (auto) 0.2 %; Eosinophils # (auto) 0.09 K/uL (0-0.50); Eosinophils % (auto) 0.4 %; Hematocrit (blood only) 37.5 % (37.0-47.0); Immature Granulocytes # (auto) 0.35 K/uL (0.01-0.20); Immature Granulocytes % (auto) 1.7 %; Lymphocytes # (auto) 2.85 K/uL (1.2-3.4); Lymphocytes % (auto) 13.8 %; Mean Corpuscular Hemoglobin 26.1 pg (25.0-34.0); Mean Corpuscular Volume 81.5 fL (80.0-100.0); Mean Platelet Volume 9.9 fL (9.4-12.4); Monocytes # (auto) 1.27 K/uL (0.11-0.59); Monocytes % (auto) 6.2 %; Neutrophils # (auto) 16.02 K/uL (1.40-6.50); Neutrophils % (auto) 77.7 %; Platelet Count 378 K/uL (130-400); RDW Coefficient of Variation 16.5 % (11.5-14.5); RDW Standard Deviation 49.1 fL (36.4-46.3); White Blood Count 20.62 K/ul (4.8-10.8)
[2022-08-27] MEDS: ASPIRIN 81 MG ECTAB PO SCH (09:41)
[2022-08-27] MEDS: LORATADINE 10 MG TAB PO SCH (09:41)
[2022-08-27] MEDS: FERROUS SULFATE 325 MG TAB PO SCH (09:41)
[2022-08-27] MEDS: FUROSEMIDE 40 MG TAB PO SCH (09:41)
[2022-08-27] MEDS: guaiFENesin 600 MG TABCR PO SCH (09:41)
[2022-08-27] MEDS: LOSARTAN POTASSIUM 50 MG TAB PO SCH (09:41)
[2022-08-27] MEDS: dexAMETHasone 6 MG in SYRINGE 0 ML IV SCH (09:41)
[2022-08-27] MEDS: ASCORBIC ACID 500 MG TAB PO SCH (09:42)
[2022-08-27] MEDS: CITALOPRAM 20 MG TAB PO SCH (09:42)
[2022-08-27] MEDS: carvediloL 12.5 MG TAB PO SCH (09:43)
[2022-08-27] MEDS: MULTIVITAMIN TAB PO SCH (09:43)
[2022-08-27] MEDS: FLUTICASONE PROPIONATE NA SPR 16 GM BTL SCH (09:43)
[2022-08-27] MEDS: DOXYCYCLINE HYCLATE 100 MG CAP PO SCH (09:43)
[2022-08-27] MEDS: ENOXAPARIN INJ 40 MG/0.4 ML SYR SQ SCH (09:43)
[2022-08-27] MEDS: DICLOFENAC SOD 1% GEL 100 GM TUBE EXT SCH ×2 (10:03→12:49)
--- NOTE | 2022-08-27 17:05 | Discharge Summary ---
Date of Service August 27, 2022 Admission HPI Per Admitting Provider Ms. De León is a 61-year-old female that presented to the [facility] today with increased shortness of breath and dyspnea that has been worsening for the past 3 to 4 days. Upon arrival she was tachycardic 110, tachypneic in the 30s and febrile 38.1. She was placed on 4 L. She reports being seen at urgent care today and prescribed steroids and Zithromax. CXR in ED Shows no acute chest disease or evidence of pleural effusion or pneumothorax. Patient denies headache, dizziness, chest pain, palpitations, shortness of breath, abdominal pain, recent trauma or falls, recent sick exposures, dysuria, blurry or double vision, appetite changes. Initial treatment included IV fluids, Rocephin, methylprednisone and a DuoNeb treatment. Patient is positive for COVID-19 however suspect there may be dual diagnosis for this individual. Past medical history includes hypertension, asthma, depression, hypothyroidism, obstructive sleep apnea, and obesity. Patient does have reported hypertrophic cardiomyopathy that appears to be related to hypertensive heart disease per EMR notes 07/2018. Follows outpatient cardiology. Patient is vaccinated against COVID. Patient will be admitted for further evaluation and management. Please see A/P for further details. Admission Exam Per Admitting Provider Neuro: AAOx4, PERRLA, no aphagia, memory changes, CNII-XII grossly intact HEENT: head normocephalic, moist mucus membranes. Using diaphragmatic muscles for breathing along with accessory muscles CV: S1/S2, (-) M/G/R, (-) edema, cap refill < 3 seconds Resp: Lungs CTA in all sharma. On 3 L nasal cannula decreased in all sharma GI: Abdomen S/NT/ND, Ax4 bowel sounds, (-) CVA tenderness Musculoskeletal: 5/5 B/L UE strength, 5/5 B/L LE strength. No gait disturbance. (+) lymphedema bilaterally Skin: (-) rashes , (-) erythema. Psych: euthymic mood Principal Diagnosis (1) COVID-19: (2) Hypoxia: (3) Shortness of breath: (4) Hypertension: (5) Asthma: (6) Depression: (7) Hypothyroid: (8) Obesity: (9) Obstructive sleep apnea hypopnea, severe: (10) DM2 (diabetes mellitus, type 2): (11) Hypertrophic cardiomyopathy: Discharge Exam General- No acute distress Head- atraumatic Eyes- PERRL, EOMI, ENT- oropharynx clear Neck- supple, no JVD Lungs- clear to auscultation Heart- regular rhythm; no murmur Abdomen- normal bowel sounds, soft, nontender Extremities- no calf tenderness Neuro- alert, oriented x 3; PERRL, EOMI; no facial palsy; no dysarthria Skin- warm & dry Discharge Data Allergies Allergy/AdvReac Type Severity Reaction Status Date / Time morphine AdvReac Intermediate ABD PAIN, Verified 08/22/22 17:50 NAUSEA AND VOMITING Consultations 08/22/22 18:29 ED Decision to Admit Stat 08/23/22 11:03 Consult Infectious Diseases Routine Ordered Studies 08/22/22 20:01 CT angio chest PE protocol Stat Laboratory Results WBC 20.62 K/ul (4.8-10.8) H 08/27/22 07:58 RBC 4.60 M/uL (4.20-5.40) 08/27/22 07:58 Hgb 12.0 g/dl (12.0-16.0) 08/27/22 07:58 Hct 37.5 % (37.0-47.0) 08/27/22 07:58 MCV 81.5 fL (80.0-100.0) 08/27/22 07:58 MCH 26.1 pg (25.0-34.0) 08/27/22 07:58 MCHC 32.0 g/dL (32.0-36.0) 08/27/22 07:58 RDW Std Deviation 49.1 fL (36.4-46.3) H 08/27/22 07:58 RDW Coeff of Della 16.5 % (11.5-14.5) H 08/27/22 07:58 Plt Count 378 K/uL (130-400) 08/27/22 07:58 MPV 9.9 fL (9.4-12.4) 08/27/22 07:58 Immature Gran % (Auto) 1.7 % 08/27/22 07:58 Neut % (Auto) 77.7 % 08/27/22 07:58 Lymph % (Auto) 13.8 % 08/27/22 07:58 [place] % (Auto) 6.2 % 08/27/22 07:58 Eos % (Auto) 0.4 % 08/27/22 07:58 Baso % (Auto) 0.2 % 08/27/22 07:58 Neut # (Auto) 16.02 K/uL (1.40-6.50) H 08/27/22 07:58 Lymph # (Auto) 2.85 K/uL (1.2-3.4) 08/27/22 07:58 [place] # (Auto) 1.27 K/uL (0.11-0.59) H 08/27/22 07:58 Eos # (Auto) 0.09 K/uL (0-0.50) 08/27/22 07:58 Baso # (Auto) 0.04 K/uL (0-0.2) 08/27/22 07:58 Immature Gran # (Auto) 0.35 K/uL (0.01-0.20) H 08/27/22 07:58 ESR 82 mm/hr (0-30) H 08/23/22 07:14 PT 12.1 Seconds (9.0-12.0) H 08/22/22 17:01 INR 1.1 (0.9-1.1) 08/22/22 17:01 D-Dimer 3490 ug/L FEU (0-500) H* 08/22/22 17:01 VBG pH 7.41 (7.36-7.41) 08/22/22 17:51 VBG pCO2 43 mmHg (38-50) 08/22/22 17:51 VBG pO2 36 mmHg 08/22/22 17:51 VBG HCO3 27 mmol/L 08/22/22 17:51 VBG O2 Saturation 61.0 % 08/22/22 17:51 VBG Base Excess 2.2 mEq/L 08/22/22 17:51 Sodium 137 mmol/L (136-145) 08/27/22 07:58 Potassium 4.4 mmol/L (3.5-5.1) 08/27/22 07:58 Chloride 103 mmol/L (98-107) 08/27/22 07:58 Carbon Dioxide 29 mmol/L (21-32) 08/27/22 07:58 Anion Gap 5 (3-11) 08/27/22 07:58 BUN 19 mg/dl (6-23) 08/27/22 07:58 Creatinine 0.57 mg/dl (0.6-1.2) L 08/27/22 07:58 Est Cr Clr Drug Dosing 146.6 ml/min 08/27/22 07:58 Est GFR ( Amer) 115.2 ml/min 08/27/22 07:58 Est GFR (Non-Af Amer) 99.4 ml/min 08/27/22 07:58 BUN/Creatinine Ratio 33.3 (10-20) H 08/27/22 07:58 Glucose 91 mg/dl (70-99(Fasting)) 08/27/22 07:58 POC Glucose 118 mg/dl (70-99) H 08/27/22 11:25 Estimat Average Glucose 137 mg/dl 08/23/22 07:14 Hemoglobin A1c 6.4 % (4.5-5.6) H 08/23/22 07:14 Lactate 2.0 mmol/L (0.4-2.0) 08/22/22 17:01 Calcium 9.1 mg/dl (8.5-10.1) 08/27/22 07:58 Magnesium 1.7 mg/dl (1.7-2.4) 08/22/22 17:01 Total Bilirubin 0.8 mg/dl (0.2-1.0) 08/22/22 17:01 AST 20 U/L (13-39) 08/22/22 17:01 ALT 19 U/L (7-52) 08/22/22 17:01 Alkaline Phosphatase 63 U/L (34-104) 08/22/22 17:01 Troponin I High Sens 26.3 pg/ml (0-14) H D 08/23/22 07:14 C-Reactive Protein 29.27 mg/dl (0-0.5) H 08/23/22 07:14 B-Natriuretic Peptide 211 pg/ml (0-100) H 08/22/22 17:01 Total Protein 8.3 gm/dl (6.0-8.3) 08/22/22 17:01 Albumin 4.0 gm/dl (3.4-5.0) 08/22/22 17:01 Globulin 4.3 gm/dl (2.5-4.0) H 08/22/22 17:01 Albumin/Globulin Ratio 0.9 (0.9-2) 08/22/22 17:01 Procalcitonin 1.68 ng/ml (0-0.5) H 08/23/22 07:24 Urine Color Yellow 08/24/22 05:50 Urine Appearance Clear (Clear) 08/24/22 05:50 Urine pH 6.0 (4.5-7.5) 08/24/22 05:50 Ur Specific [place] 1.015 (1.000-1.030) 08/24/22 05:50 Urine Protein Negative (Negative) 08/24/22 05:50 Urine Glucose (UA) Negative (Negative) 08/24/22 05:50 Urine Ketones Negative (Negative) 08/24/22 05:50 Urine Blood 3+ (Negative) H 08/24/22 05:50 Urine Nitrite Negative (Negative) 08/24/22 05:50 Urine Bilirubin Negative (Negative) 08/24/22 05:50 Urine Urobilinogen Negative (Negative) 08/24/22 05:50 Ur Leukocyte Esterase Trace (Negative) H 08/24/22 05:50 Urine WBC (Auto) 1-5 /hpf (0-5) 08/24/22 05:50 Urine RBC (Auto) 10-30 /hpf (0-4) H 08/24/22 05:50 U Hyaline Cast (Auto) 1-5 /lpf (0-5) 08/24/22 05:50 U Epithel Cells (Auto) 10-20 /lpf (0-5) H 08/24/22 05:50 Urine Bacteria (Auto) Negative (Negative) 08/24/22 05:50 Adenovirus (PCR) Not Detected (NotDetected) 08/22/22 17:01 B. pertussis DNA (PCR) Not Detected (NotDetected) 08/22/22 17:01 B.parapertussis DNA PCR Not Detected (NotDetected) 08/22/22 17:01 C. pneumoniae DNA (PCR) Not Detected (NotDetected) 08/22/22 17:01 Coronavirus OC43 (PCR) Not Detected (NotDetected) 08/22/22 17:01 Coronavirus HKU1 (PCR) Not Detected (NotDetected) 08/22/22 17:01 Coronavirus 229E (PCR) Not Detected (NotDetected) 08/22/22 17:01 SARS-CoV-2 (PCR) DETECTED (NotDetected) A* 08/22/22 17:01 Coronavirus NL63 (PCR) Not Detected (NotDetected) 08/22/22 17:01 Human Metapneumovir PCR Not Detected (NotDetected) 08/22/22 17:01 Influenza Type A (PCR) Not Detected (NotDetected) 08/22/22 17:01 Influenza Type B (PCR) Not Detected (NotDetected) 08/22/22 17:01 M. pneumoniae (PCR) Not Detected (NotDetected) 08/22/22 17:01 Parainfluenza 1 (PCR) Not Detected (NotDetected) 08/22/22 17:01 Parainfluenza 2 (PCR) Not Detected (NotDetected) 08/22/22 17:01 Parainfluenza 3 (PCR) Not Detected (NotDetected) 08/22/22 17:01 Parainfluenza 4 (PCR) Not Detected (NotDetected) 08/22/22 17:01 RSV (PCR) Not Detected (NotDetected) 08/22/22 17:01 Entero/Rhino (PCR) Not Detected (NotDetected) 08/22/22 17:01 Streptococcus sp PCR DETECTED (NotDetected) A 08/22/22 17:01 Strep agalactiae (PCR) DETECTED (NotDetected) A 08/22/22 17:01 Bld Cult ID Panel PCR PCR Panel Negative (NotDetected) 08/22/22 17:20 Impressions Chest CTA 08/22/22 20:01 CT angio chest PE protocol CT DOSE: 837.60 mGy.cm HISTORY: 61 years-old Female with PE. Acute shortness of breath. COVID Positive. TECHNIQUE: Multiple CTA images of the chest were obtained after the intravenous administration of 117 ml Optiray. Coronal and sagittal MIPS were obtained from the axial data set and were submitted for review. All measurements were obtained according to NASCET criteria. A dose lowering technique was utilized adhering to the principles of ALARA. COMPARISON: Chest radiograph of same day, CTA chest 12/20/2019 FINDINGS: CTA: Mild cardiomegaly with small pericardial effusion. Stable. No thoracic aortic aneurysm. Unremarkable pulmonary artery is suboptimal visualization of the segmental and subsegmental pulmonary arterial branches secondary to contrast bolus on the respiratory motion artifact. CT CHEST: No dominant thyroid nodule is seen. No pathologically adenopathy by CT size criteria. Mild dependent segmental bibasilar atelectasis. No pneumothorax, p leural effusion, airspace consolidation or overt pulmonary edema. The previously noted groundglass nodule within the posterior segment right upper lobe is not visualized. Hepatomegaly with hepatic steatosis. Unremarkable soft tissues. No acute fracture. Degenerative changes of the shoulders and spine with numerous loose bodies within the left greater than right glenohumeral joints. IMPRESSION: 1. Cardiomegaly with unchanged small pericardial effusion. 2. No pulmonary emboli identified. 3. Mild subsegmental bibasilar atelectasis. No airspace consolidation to suggest pneumonia. ACT 112: Negative or not required by law. The above report was generated using voice recognition software. It may contain grammatical, syntax or spelling errors. Electronically signed by: Braulio Delarosa M.D. 08/23/2022 7:34 AM Chest X-Ray 08/23/22 08:00 XR chest 1V portable HISTORY: 61 years-old Female post-operative coughing and wheezing acute cough with wheezing COMPARISON: CTA chest 08/22/2022 TECHNIQUE: AP view of the chest FINDINGS: Cardiac silhouette is enlarged. Hilar silhouettes are unchanged. No pneumothorax, pleural effusion, airspace consolidation or overt pulmonary edema. Bones appear grossly intact. IMPRESSION: Cardiomegaly without acute process. ACT 112: Negative or not required by law. The above report was generated using voice recognition software. It may contain grammatical, syntax or spelling errors. Electronically signed by: Braulio Delarosa M.D. 08/23/2022 8:16 AM Hospital Course (1) COVID-19: (2) Hypoxia: (3) Shortness of breath: (4) Hypertension: (5) Asthma: (6) Depression: (7) Hypothyroid: (8) Obesity: (9) Obstructive sleep apnea hypopnea, severe: (10) DM2 (diabetes mellitus, type 2): (11) Hypertrophic cardiomyopathy: Plan 61-year-old presents with tachypnea, tachycardia, leukocytosis WBC 26. Patient positive COVID started on remdesivir and Decadron.Elevated BNP to 211. D-Dimer > 3000. Chest CTA pending. Sepsis in setting of COVID-19: Acute hypoxic respiratory failure Rule out bacteremia CXR: Shows no acute chest disease or evidence of pleural effusion or pneumothorax. DuoNeb in ED; continue 4 times daily and every 2 as needed Required BiPAP overnight, transition to 3 L of oxygen via nasal cannula Completed the course of remdesivir saturated well on RA, will d/c dexamethasone on discharge Continue incentive spirometry, flutter valve, Mucinex Clinically better and will continue current management No shortness of breath at rest and no cough No respiratory symptoms at rest and has been saturating normally on room air Appreciate PT and OT evaluation and recommendation for rehab Blood culture: Gram-positive cocci in chains, PCR showing strep Continue ceftriaxone day #4 for possible strep bacteremia Likely pulmonary source Doubt any septic arthritis of the right knee Appreciate ID input and recommendation Repeat blood cultures have been taken, if negative will have a total of 14 days of IV antibiotic Repeat blood culture negative Will have ultrasound-guided line for a total of 14 days course of IV antibiotic as recommended Right knee pain Has had a fall at home likely has minor trauma Anterior part of the right knee is tender without any redness and/or swelling Clinically no evidence of septic arthritis Will apply diclofenac gel Right knee pain and tenderness are improved Congestive Heart Failure: Hypertrophic cardiomyopathy: -Takes Lostartan; continue -ECHO 12/2019: G2 diastolic dysfunction. EF 61%Mild aortic stenosis -BNP 221 -Appears to be euvolemic Continue usual Lasix No signs and or symptoms of volume overload Hypertension: -Takes carvedilol and losartan; continue -Troponin 35.5; likely in setting of ischemic demand Increased up to 80, trended down to 26 -ECHO: EF 55 to 60%, moderate concentric LVH, left ventricular systolic function normal Asthma: NICKO: -Takes Singulair, Flovent, albuterol as needed; continue -CPAP at night; continue DM2: -A1C check in AM -Takes Metformin; discontinue while here and place on SSI. -ACHS FSBS -Monitor sugars closely with Decadron Depression: -Takes citalopram; continue Hypothyroidism: -Takes levothyroxine; continue Disposition: PCP Dr. Bryan CODE STATUS: Full code VTE prophylaxis: Heparin SQ Lives at home with family Recommended rehab Total Time Total Time Spent Total Time Spent (In Minutes): 40 minutes Discharge Plan Discharge Items Patient Disposition: Transfer Inpatient Rehab Fac Reason For Visit: SOB Discharge Diagnosis: (1) COVID-19: (2) Hypoxia: (3) Shortness of breath: (4) Hypertension: (5) Asthma: (6) Depression: (7) Hypothyroid: (8) Obesity: (9) Obstructive sleep apnea hypopnea, severe: (10) DM2 (diabetes mellitus, type 2): (11) Hypertrophic cardiomyopathy: Activity: Resume your previous activity Non-emergency contact: Primary Care Provider Call non-emergency contact if: you have any medication questions, your symptoms worsen and your temperature is above 101 Follow-up/Referrals: Salo Bryan MD [Primary Care Provider] - Diet: Carb Consistent or DM2 and Heart Healthy Addtl Attending Provider Instructions: Follow up with your primary care provider once discharge from [facility] Continue physical and occupational therapy Fall precaution Complete the course of the antibiotic with Ceftriaxone for additional 10 days Continue incentive spiromerty Continue Cpap at night Check CBC within 1 week to monitor leukocytosis Continue to wear mask and practice social distance Home Isolation COVID-19 Instructions The following information about Home Isolation is from the CDC Website: https://www.cdc.gov/coronavirus/2019-ncov/hcp/ieafmcby-tuhqvdx-morykq.html Stay home except to get medical care People who are mildly ill with COVID-19 are able to isolate at home during their illness. You should restrict activities outside your home, except for getting medical care. Do not go to work, school, or public areas. Avoid using public transportation, ride-sharing, or taxis. Separate yourself from other people and animals in your home People: As much as possible, you should stay in a specific room and away from other people in your home. Also, you should use a separate bathroom, if available. Animals: You should restrict contact with pets and other animals while you are sick with COVID-19, just like you would around other people. Although there have not been reports of pets or other animals becoming sick with COVID-19, it is still recommended that people sick with COVID-19 limit contact with animals until more information is known about the virus. When possible, have another member of your household care for your animals while you are sick. If you are sick with COVID-19, avoid contact with your pet, including petting, snuggling, being kissed or licked, and sharing food. If you must care for your pet or be around animals while you are sick, wash your hands before and after you interact with pets and wear a face mask. Call ahead before visiting your doctor If you have a medical appointment, call the healthcare provider and tell them that you have or may have COVID-19. This will help the healthcare providers office take steps to keep other people from getting infected or exposed. Wear a face mask You should wear a face mask when you are around other people (e.g., sharing a room or vehicle) or pets and before you enter a healthcare providers office. If you are not able to wear a face mask (for example, because it causes trouble breathing), then people who live with you should not stay in the same room with you, or they should wear a face mask if they enter your room. Cover your coughs and sneezes Cover your mouth and nose with a tissue when you cough or sneeze. Throw used tissues in a lined trash can. Immediately wash your hands with soap and water for at least 20 seconds or, if soap and water are not available, clean your hands with an alcohol-based hand cotton acreage measurer that contains at least 60% alcohol. Clean your hands often Wash your hands often with soap and water for at least 20 seconds, especially after blowing your nose, coughing, or sneezing; going to the bathroom; and before eating or preparing food. If soap and water are not readily available, use an alcohol-based hand cotton acreage measurer with at least 60% alcohol, covering all surfaces of your hands and rubbing them together until they feel dry. Soap and water are the best option if hands are visibly dirty. Avoid touching your eyes, nose, and mouth with unwashed hands. Avoid sharing personal household items You should not share dishes, drinking glasses, cups, eating utensils, towels, or bedding with other people or pets in your home. After using these items, they should be washed thoroughly with soap and water. Clean all high-touch surfaces everyday High touch surfaces include counters, tabletops, doorknobs, bathroom fixtures, toilets, phones, keyboards, tablets, and bedside tables. Also, clean any surfaces that may have blood, stool, or body fluids on them. Use a household cleaning spray or wipe, according to the label instructions. Labels contain instructions for safe and effective use of the cleaning product including precautions you should take when applying the product, such as wearing gloves and making sure you have good ventilation during use of the product. Monitor your symptoms Seek prompt medical attention if your illness is worsening (e.g., difficulty breathing).Beforeseeking care, call your healthcare provider and tell them that you have, or are being evaluated for, COVID-19. Put on a face mask before you enter the facility. These steps will help the healthcare providers office to keep other people in the office or waiting room from getting infected or exposed. Ask your healthcare provider to call the local or state health department. Persons who are placed under active monitoring or facilitated self- monitoring should follow instructions provided by their local health department or occupational health professionals, as appropriate. When working with your local health department check their available hours. If you have a medical emergency and need to call 911, notify the dispatch personnel that you have, or are being evaluated for COVID-19. If possible, put on a face mask before emergency medical services arrive. Discontinuing home isolation Patients with confirmed COVID-19 should remain under home isolation precautions until the risk of secondary transmission to others is thought to be low. The decision to discontinue home isolation precautions should be made on a [id number] basis, in consultation with healthcare providers and state and local health departments. Coronavirus disease 2019 (COVID-19) is a virus that causes a respiratory illness. It is caused by a coronavirus called 2019 novel coronavirus (2019- nCoV). There are many types of coronavirus. Coronaviruses are a very common cause of bronchitis. They may sometimes cause lung infection(pneumonia). Symptoms can range from mild to severe respiratory illness. These viruses are also foundin some animals. COVID-19 was first found in people in [facility], in late 2018. In 2020, several cases of COVID-19 have been confirmed in the [place] Public health officials are working to find the source. How the virus spreads is not yet fully known. It may be spread through droplets of fluid that a person coughs or sneezes into the air. It may be spread if you touch a surface with virus on it, such as a handle or object, and then touch your mouth. What are the symptoms of COVID-19? Some people have no symptoms or mild symptoms. Symptoms may appear 2 to 14 days after contact with the virus. Symptoms can include: Fever Coughing Trouble breathing What are possible complications from COVID-19? In many cases, this virus can cause infection (pneumonia) in both lungs. In some cases, this can cause . How is COVID-19 diagnosed? Your healthcare provider will ask about your symptoms. He or she will also ask about your recent travel and contact with sick people. Testing for the virus is only done through the [facility]. If [facility] provider thinks you may have COVID- 19, he or she will work with your local health department and the CDC on testing. Follow all instructions from your healthcare provider. COVID-19 is diagnosed by: Nasal and throat swab. A cotton-tipped swab is wiped inside your nose or throat. This is done to check for viruses in your nasal mucus. Sputum culture. A small sample of mucus coughed from your lungs (sputum) is collected if you have a cough. It is checked for the virus. How is COVID-19 treated? There is currently no medicine to treat the virus. Treatment is done to help your body while it fights the virus. This is known as supportive care. Supportive care may include: Pain medicine. These include acetaminophen and ibuprofen. They are used to help ease pain and reduce fever. Bed rest. This helps your body fight the illness. For severe illness, you may need to stay in the hospital. Care during severe illness may include: IV (intravenous) fluids.These are given through a vein to help keep your body hydrated. Oxygen. Supplemental oxygen or ventilation with a breathing machine (ventilator) may be given. This is done to keep enough oxygen in your body. Are you at risk for COVID-19? If youve been to a place where people have been sick with this virus, you are at risk for infection. You are at risk if you: Recently traveled to an affected area Had contact with a sick person who recently traveled to this area Had contact with a person who was diagnosed with COVID-19 How can COVID-19 be prevented? There is no vaccine yet. The best prevention is to not have contact with the virus. The CDC advises that people should not travel to areas where there are COVID-19 outbreaks right now for any reason that is not urgent. To help prevent spreading the infection, wash your hands often, or use an alcohol-basedhand cotton acreage measurer. If you are in an area with COVID-19: Wash your hands often. Or use an alcohol-based hand cotton acreage measurer often. Only touch your eyes, nose, or mouth with clean hands. Dont have contact with people who are sick. Follow local instructions about being in public. For example, you may be told to not use public transport for a period of time. Stay away from markets that have live or animals. Wash your hands after touching any animals. Don't touch animals that may be sick. Dont share eating or drinking tools with sick people. Dont kiss someone who is sick. Clean surfaces often with disinfectant. If you were in an area with COVID-19 in the last 14 days: Call your healthcare provider. He or she can talk with local health staff to see what action may be needed. Follow all instructions from your provider. Take your temperature every morning and evening for at least 14 days. This is to check for fever. Keep a record of the readings. Keep watch for symptoms of the virus. Tell your provider right away if you have symptoms. If you were in an area with COVID-19 and have a fever or other symptoms: Dont panic. Keep in mind that other illnesses can cause similar symptoms. Stay away from work, school, and public places. Limit physical contact with family members. Don't kiss anyone or share eating or drinking utensils. Clean surfaces you touch with disinfectant. This is to help prevent the virus from spreading. Call your healthcare provider. Explain that you have been exposed to COVID-19 and have symptoms. Do this before going to any hospital. Wait for instructions. Keep in mind that healthcare staff may wear protective equipment such as masks, gowns, gloves, and eye protection. You may be put in a separate room. This is to prevent the possible virus from spreading. Tell the healthcare staff about recent travel. This includes local travel on p ublic transport. Staff may need to find other people you have been in contact with. Follow all instructions the healthcare staff give you. If you have been diagnosed with COVID-19 Follow all instructions from your healthcare provider. Dont leave your home, except to get medical care. Call your healthcare providers office before going. They can prepare and give you instructions. This will help prevent the virus from spreading. Dont go to work, school, or public areas. Dont use public transport or taxis. Stay away from other people in your home. Have them wear face masks around you. Dont share household items or food. Wear a face mask if you can. This includes at home or in a medical facility. Cover your face with a tissue when you cough or sneeze. Throw the tissue away. Wash your hands. Wash your hands often. Caregivers should: Follow all instructions from healthcare staff. Wear a face mask and protective clothing as advised. Wash hands often. Keep track of the sick persons symptoms. Clean surfaces, fabrics, and laundry thoroughly. Keep other people away from the sick person. When to call your healthcare provider Call your healthcare provider: If youve recently traveled and have symptoms If you have been diagnosed with COVID-19 and your symptoms are worse To learn more To find out more about COVID-19, visit the CDC website at www.cdc.gov/coronavirus/2019-ncov/index.html. [employer]. [address] [address]. All rights reserved. This information is not intended as a substitute for professional medical care. Always follow your healthcare professional's instructions. This information has been adapted from [employer] Pending Studies at Discharge: Yes Stand-Alone Forms: My [facility] Skilled Items Patient informed of condition?: Yes DNR: No Discharge Level of Care: Acute rehab Communicable Disease: Yes Discharge Prognosis: Stable Lines: Peripheral IV Urinary Catheter: No Medications and DC Order Prescriptions: New ceftriaxone 2 gram recon soln 2 g IV DAILY Qty: 10 0RF Continued citalopram 20 mg Tablet 20 mg PO QAM ferrous sulfate [iron] 325 mg (65 mg iron) Tablet 325 mg PO QAM levothyroxine [Synthroid] 125 mcg Tablet 250 mcg PO QAM Rx Instructions: 2 tablet dose ergocalciferol (vitamin D2) [Vitamin D2] 50,000 unit Capsule 50,000 unit PO DIRECTED Rx Instructions: take 1 capsule weekly alternating with 2 capsules weekly every other week for a total of 6 capsules monthly albuterol sulfate 90 mcg/actuation Hfa Aerosol Inhaler 2 puff INHALATION Q4 PRN (Reason: Wheezing) aspirin [Adult Low Dose Aspirin] 81 mg Tablet,Delayed Release (Dr/Ec) 81 mg PO QAM carvedilol 12.5 mg tablet 12.5 mg PO BID ascorbic acid (vitamin C) [Vitamin C] 250 mg Tablet 250 mg PO QAM loratadine 10 mg Tablet 10 mg PO DAILY multivitamin Tablet 1 tab PO QAM furosemide 40 mg tablet See Rx Instructions .ROUTE .COMPLEX Rx Instructions: 40 mg orally ;TAKES 80 MG ON MON, WED, & FRI; THEN 40 MG ON WED, WED, , & WED. losartan 50 mg tablet 50 mg PO QAM fluticasone propionate 50 mcg/actuation [place],Suspension 2 spray INTRANASAL BID Rx Instructions: administer into each nostril metformin 500 mg tablet extended release 24 hr 1,000 mg PO QDD Saline Nasal 0.65 % Aerosol,[place] 2 spray INTRANASAL DIRECTED PRN (Reason: NASAL DRYNESS) Discontinued azithromycin 250 mg tablet 250 mg PO DAILY Rx Instructions: ORDERED 08/22/22, NOT STARTED YET prednisone 20 mg tablet 40 mg PO DAILY Rx Instructions: ORDERED 08/22/22 FOR 5 DAYS, NOT STARTED YET Discharge Orders: Discharge Order (Routine); Ordered 08/27/22 Ordered By: Arnav Wagner/Other Patient Handouts: Managing Type 2 Diabetes Admission Data Admit Date/Time: 08/22/22 18:30 Attending Provider: Arnav Moreno Admit Provider: Randy Millan Primary Care Provider: Salo Bryan Other Providers: Randy Millan ; Suleiman Acosta ; Gibran Hernández ; Carloz Fuller I. ; Souleymane Blanco II ; Lorrie Holm ; Grey Rubin ; Josue Porter ; Arpit Ingram ; [facility] Other Interventions: Discharge Summary Assessment (RN) Last Done: 08/27/22 14:09
== END 2022-08-27 15:29 | DRG 871 ==
LOC: ED 16:38 → 2S 18:30 → SUATTDRO 18:30 → 2S 21:27